=== PATIENT | male | born 1950 | race Caucasian/White ===

== ENCOUNTER → 2016-09-20 | Outpatient (CLI) | payer OTHER ==
[2016-09-20 08:28] LABS: CH 33.8; CHCM 34.7; HCT 45.2 % (39.0-53.0); HDW 2.93; HGB 15.3 gm/dL (13.0-17.5); MCHC 33.7 g/dL (31.0-37.0); Mean Platelet Volume 9.4; RBC 4.62 m/uL (4.30-5.90); RDW 12.8 % (11.5-15.5); WBC 7.9 k/uL (3.8-10.6)
[2016-09-20 08:50] LABS: ALT 51 U/L (21-72); AST 30 U/L (17-59); Alkaline Phosphatase 79 U/L (38-126); Anion Gap 9 mmol/L; Blood Urea Nitrogen 18 mg/dL (9-20); Calcium 9.4 mg/dL (8.4-10.2); Carbon Dioxide 30 mmol/L (22-30); Chloride 103 mmol/L (98-107); Cholesterol 152 mg/dL (<200); Glucose 102 mg/dL (74-99); HDL Cholesterol 52 mg/dL (40-60); Non-African American GFR(MDRD) >60 (>60 ml/min/1.73 sqM); Potassium 4.1 mmol/L (3.5-5.1); Sodium 142 mmol/L (137-145); Total Protein 7.3 g/dL (6.3-8.2); Triglycerides 85 mg/dL (<150)
[2016-09-20 09:20] LABS: Prostate Specific Antigen 2.11 ng/mL (0.00-4.00)
== END | disposition home or self-care (01) ==
LOC: LABWHC1 08:02
PROVIDERS: ATTEND Internal Medicine
DX: I10 Essential (primary) hypertension (principal); M19.90 Unspecified osteoarthritis, unspecified site
CPT/HCPCS: 36415; 80053; 80061; 84153; 84443; 85027

== ENCOUNTER → 2017-01-24 | Outpatient (CLI) | payer MEDICARE, OTHER ==
[2017-01-24 07:41] LABS: HDW 2.86; HGB 14.9 gm/dL (13.0-17.5); MCH 33.9 pg (25.0-35.0); MCHC 34.7 g/dL (31.0-37.0); MCV 97.5 fL (80.0-100.0); Mean Platelet Volume 9.2; RBC 4.41 m/uL (4.30-5.90); RDW 12.9 % (11.5-15.5); WBC 8.3 k/uL (3.8-10.6)
[2017-01-24 08:16] LABS: ALT 40 U/L (21-72); AST 27 U/L (17-59); Alkaline Phosphatase 79 U/L (38-126); Anion Gap 10 mmol/L; Blood Urea Nitrogen 20 mg/dL (9-20); Calcium 9.6 mg/dL (8.4-10.2); Carbon Dioxide 27 mmol/L (22-30); Chloride 108 mmol/L (98-107); Cholesterol 138 mg/dL (<200); Glucose 105 mg/dL (74-99); HDL Cholesterol 53 mg/dL (40-60); Non-African American GFR(MDRD) >60 (>60 ml/min/1.73 sqM); Potassium 4.2 mmol/L (3.5-5.1); Sodium 145 mmol/L (137-145); Total Bilirubin 0.8 mg/dL (0.2-1.3); Total Protein 7.2 g/dL (6.3-8.2); Triglycerides 61 mg/dL (<150)
== END | disposition home or self-care (01) ==
LOC: LABWHC1 07:16
PROVIDERS: ATTEND Internal Medicine
DX: D64.9 Anemia, unspecified (principal); K21.9 Gastro-esophageal reflux disease without esophagitis; E03.9 Hypothyroidism, unspecified
CPT/HCPCS: 36415; 80053; 80061; 84443; 85027

== ENCOUNTER → 2017-05-02 | Outpatient (CLI) | payer OTHER ==
[2017-05-02 07:57] LABS: CH 34.2; CHCM 34.9; HCT 44.9 % (39.0-53.0); HDW 2.82; HGB 14.9 gm/dL (13.0-17.5); MCH 32.8 pg (25.0-35.0); MCHC 33.2 g/dL (31.0-37.0); MCV 98.6 fL (80.0-100.0); Mean Platelet Volume 9.9; RBC 4.55 m/uL (4.30-5.90); RDW 13.4 % (11.5-15.5); WBC 7.3 k/uL (3.8-10.6)
[2017-05-02 09:27] LABS: ALT 39 U/L (21-72); AST 26 U/L (17-59); Alkaline Phosphatase 79 U/L (38-126); Anion Gap 9 mmol/L; Blood Urea Nitrogen 16 mg/dL (9-20); Calcium 9.2 mg/dL (8.4-10.2); Carbon Dioxide 29 mmol/L (22-30); Chloride 105 mmol/L (98-107); Cholesterol 130 mg/dL (<200); Glucose 92 mg/dL (74-99); HDL Cholesterol 44 mg/dL (40-60); Non-African American GFR(MDRD) >60 (>60 ml/min/1.73 sqM); Potassium 4.4 mmol/L (3.5-5.1); Sodium 143 mmol/L (137-145); Total Bilirubin 0.8 mg/dL (0.2-1.3); Total Protein 6.9 g/dL (6.3-8.2)
== END | disposition home or self-care (01) ==
LOC: LABWHC1 07:05
PROVIDERS: ATTEND Internal Medicine
DX: E78.5 Hyperlipidemia, unspecified (principal); I10 Essential (primary) hypertension; M19.90 Unspecified osteoarthritis, unspecified site
CPT/HCPCS: 36415; 80053; 80061; 84443; 85027

== ENCOUNTER 2017-05-29 13:35 | Inpatient (IN) | payer OTHER, MEDICARE ==
--- NOTE | 2017-05-29 13:59 | ED ---
General Adult HPI - General Chief complaint: Chest Pain Stated complaint: chest pain-sent by Time Seen by Provider: 05/29/17 13:35 Source: patient, RN notes reviewed Mode of arrival: ambulatory Limitations: no limitations - History of Present Illness Initial comments: This is a 67-year-old male who presents emergency Department complaining that at 6:00 this morning while driving to work he became sweaty and had some chest pressure and also felt short of breath while walking up the stairs to the break room at work which is abnormal. Patient states he's never had atrial fibrillation before he does state that he has had PVCs in the past. Patient denies any fever chills or cough recently. Patient states she did not feel an irregular heartbeat. Patient states that he lays in bed here he feels better. Patient states the pressure radiated to both shoulders as well. Patient denies any abdominal pain patient denies nausea vomiting or diarrhea. - Related Data Home Medications Medication Instructions Recorded Confirmed Aspirin 81 mg PO DAILY 05/29/17 05/29/17 Atenolol [Tenormin] 25 mg PO DAILY 05/29/17 05/29/17 Dutasteride [Avodart] 0.5 mg PO HS 05/29/17 05/29/17 Meloxicam [Mobic] 15 mg PO DAILY 05/29/17 05/29/17 Simvastatin [Zocor] 40 mg PO DAILY 05/29/17 05/29/17 Tamsulosin HCl [Flomax] 0.4 mg PO HS 05/29/17 05/29/17 Vits A,C,E/Lutein/Minerals 1 tab PO DAILY 05/29/17 05/29/17 [Ocuvite with Lutein Tablet] Allergies Allergy/AdvReac Type Severity Reaction Status Date / Time No Known Allergies Allergy Verified 05/29/17 14:08 Review of Systems ROS Statement: Those systems with pertinent positive or pertinent negative responses have been documented in the HPI. ROS Other: All systems not noted in ROS Statement are negative. Past Medical History Past Medical History: No Reported History Additional Past Medical History / Comment(s): macular degeneration History of Any Multi-Drug Resistant Organisms: None Reported Additional Past Surgical History / Comment(s): Eye surgery Past Psychological History: No Psychological Hx Reported Smoking Status: Never smoker Past Alcohol Use History: None Reported Past Drug Use History: None Reported General Exam - General Exam Comments Initial Comments: GENERAL: Patient is well-developed and well-nourished. Patient is nontoxic and well- hydrated and is in no acute distress. ENT: Neck is soft and supple. No significant lymphadenopathy is noted. Oropharynx is clear. Moist mucous membranes. Neck has full range of motion without eliciting any pain. EYES: The sclera were anicteric and conjunctiva were pink and moist. Extraocular movements were intact and pupils were equal round and reactive to light. Eyelids were unremarkable. PULMONARY: Unlabored respirations. Good breath sounds bilaterally. No audible rales rhonchi or wheezing was noted. CARDIOVASCULAR: Patient's heart rate is a regular ABDOMEN: Soft and nontender with normal bowel sounds. No palpable organomegaly was noted. There is no palpable pulsatile mass. SKIN: Skin is clear with no lesions or rashes and otherwise unremarkable. NEUROLOGIC: Patient is alert and oriented x3. Cranial nerves II through XII are grossly intact. Motor and sensory are also intact. Normal speech, volume and content. Symmetrical smile. MUSCULOSKELETAL: Normal extremities with adequate strength and full range of motion. LYMPHATICS: No significant lymphadenopathy is noted PSYCHIATRIC: Normal psychiatric evaluation. Normal interpersonal interactions appears functionally intact in deals appropriately with others. No signs of depression. No signs of anxiety. Limitations: no limitations Course Vital Signs 05/29/17 05/29/17 05/29/17 13:37 14:10 14:43 Temperature 97.8 F Pulse Rate 75 84 83 Respiratory 18 18 18 Rate Blood Pressure 126/80 125/83 122/80 O2 Sat by Pulse 99 96 99 Oximetry Medical Decision Making - Medical Decision Making EKG shows atrial fibrillation at 77 bpm QRS is 78 QT interval 382 QTC is 432. Patient's EKG shows Q waves in [address] segment elevation or depression is noted. Chest x-ray shows no acute normalities however there is a pleural based mass measuring 1.5 cm along the right lateral chest wall I started patient on heparin because of the significance of his symptoms. I spoke with Dr. Mims admitted the patient I wrote admitting orders. I continued heparin and patient aspirin on the floor. - Lab Data Result diagrams: 05/29/17 14:00 05/29/17 14:00 Lab Results 05/29/17 05/29/17 05/29/17 Range/Units 14:00 14:00 14:00 WBC 11.7 H (3.8-10.6) k/uL RBC 4.67 (4.30-5.90) m/uL Hgb 15.2 (13.0-17.5) gm/dL Hct 44.4 (39.0-53.0) % MCV 95.0 (80.0-100.0) fL MCH 32.6 (25.0-35.0) pg MCHC 34.3 (31.0-37.0) g/dL RDW 13.7 (11.5-15.5) % Plt Count 199 (150-450) k/uL Neutrophils % 64 % Lymphocytes % 21 % Monocytes % 8 % Eosinophils % 3 % Basophils % 1 % Neutrophils # 7.6 (1.3-7.7) k/uL Lymphocytes # 2.5 (1.0-4.8) k/uL Monocytes # 1.0 (0-1.0) k/uL Eosinophils # 0.4 (0-0.7) k/uL Basophils # 0.1 (0-0.2) k/uL PT (9.0-12.0) sec INR (<1.2) APTT (22.0-30.0) sec Sodium 140 (137-145) mmol/L Potassium 4.1 (3.5-5.1) mmol/L Chloride 106 (98-107) mmol/L Carbon Dioxide 25 (22-30) mmol/L Anion Gap 9 mmol/L BUN 19 (9-20) mg/dL Creatinine 0.81 (0.66-1.25) mg/dL Est GFR (MDRD) Af Amer >60 (>60 ml/min/1.73 sqM) Est GFR (MDRD) Non-Af >60 (>60 ml/min/1.73 sqM) Glucose 88 (74-99) mg/dL Calcium 9.3 (8.4-10.2) mg/dL Magnesium 2.1 (1.6-2.3) mg/dL Total Bilirubin 0.5 (0.2-1.3) mg/dL AST 27 (17-59) U/L ALT 45 (21-72) U/L Alkaline Phosphatase 99 (38-126) U/L Total Creatine Kinase 118 (55-170) U/L CK-MB (CK-2) 2.0 (0.0-2.4) ng/mL CK-MB (CK-2) Rel Index 1.7 Troponin I <0.012 (0.000-0.034) ng/mL Total Protein 7.2 (6.3-8.2) g/dL Albumin 4.4 (3.5-5.0) g/dL TSH 2.000 (0.465-4.680) mIU/L Free T4 0.95 (0.78-2.19) ng/dL 05/29/17 Range/Units 14:00 WBC (3.8-10.6) k/uL RBC (4.30-5.90) m/uL Hgb (13.0-17.5) gm/dL Hct (39.0-53.0) % MCV (80.0-100.0) fL MCH (25.0-35.0) pg MCHC (31.0-37.0) g/dL RDW (11.5-15.5) % Plt Count (150-450) k/uL Neutrophils % % Lymphocytes % % Monocytes % % Eosinophils % % Basophils % % Neutrophils # (1.3-7.7) k/uL Lymphocytes # (1.0-4.8) k/uL Monocytes # (0-1.0) k/uL Eosinophils # (0-0.7) k/uL Basophils # (0-0.2) k/uL PT 10.8 (9.0-12.0) sec INR 1.1 (<1.2) APTT 25.1 (22.0-30.0) sec Sodium (137-145) mmol/L Potassium (3.5-5.1) mmol/L Chloride (98-107) mmol/L Carbon Dioxide (22-30) mmol/L Anion Gap mmol/L BUN (9-20) mg/dL Creatinine (0.66-1.25) mg/dL Est GFR (MDRD) Af Amer (>60 ml/min/1.73 sqM) Est GFR (MDRD) Non-Af (>60 ml/min/1.73 sqM) Glucose (74-99) mg/dL Calcium (8.4-10.2) mg/dL Magnesium (1.6-2.3) mg/dL Total Bilirubin (0.2-1.3) mg/dL AST (17-59) U/L ALT (21-72) U/L Alkaline Phosphatase (38-126) U/L Total Creatine Kinase (55-170) U/L CK-MB (CK-2) (0.0-2.4) ng/mL CK-MB (CK-2) Rel Index Troponin I (0.000-0.034) ng/mL Total Protein (6.3-8.2) g/dL Albumin (3.5-5.0) g/dL TSH (0.465-4.680) mIU/L Free T4 (0.78-2.19) ng/dL Critical Care Time Critical Care Time: Yes Total Critical Care Time: 35 Disposition Clinical Impression: Unstable angina pectoris Disposition: ADMITTED IP TO THIS HOSP Referrals: Cecelia Evangelista MD [Primary Care Provider] - 1-2 days Time of Disposition: 15:12
[2017-05-29 14:25] LABS: INR 1.1 (<1.2)
--- NOTE | 2017-05-29 14:25 | XR ---
EXAMINATION TYPE: XR chest 2V DATE OF EXAM: 05/29/2017 COMPARISON: NONE TECHNIQUE: PA and lateral views submitted. HISTORY: Dysrhythmia and chest discomfort FINDINGS: The lungs are clear and there is no pneumothorax, pleural effusion, or focal pneumonia. Hypertrophi c and degenerative change of the spine. Arthropathy of the shoulders. Hyperinflation suggests COPD. T here is a pleural-based density along the right lateral chest wall measuring 1.7 cm. IMPRESSION: 1. No acute process. However, there is a pleural-based mass measuring 1.7 cm along the right lateral chest wall recommend follow-up CT scan.
[2017-05-29 14:26] LABS: Partial Thromboplastin Time 25.1 sec (22.0-30.0); Prothrombin Time 10.8 sec (9.0-12.0)
[2017-05-29 14:27] LABS: ALT 45 U/L (21-72); AST 27 U/L (17-59); Alkaline Phosphatase 99 U/L (38-126); Anion Gap 9 mmol/L; Blood Urea Nitrogen 19 mg/dL (9-20); Calcium 9.3 mg/dL (8.4-10.2); Carbon Dioxide 25 mmol/L (22-30); Chloride 106 mmol/L (98-107); Glucose 88 mg/dL (74-99); Magnesium 2.1 mg/dL (1.6-2.3); Non-African American GFR(MDRD) >60 (>60 ml/min/1.73 sqM); Potassium 4.1 mmol/L (3.5-5.1); Sodium 140 mmol/L (137-145); Total Bilirubin 0.5 mg/dL (0.2-1.3); Total Protein 7.2 g/dL (6.3-8.2)
[2017-05-29 14:36] LABS: Basophils # (A) 0.1 k/uL (0-0.2); Basophils % (A) 1 %; CH 34.5; CHCM 36.5; Eosinophils # (A) 0.4 k/uL (0-0.7); Eosinophils % (A) 3 %; HCT 44.4 % (39.0-53.0); HDW 2.83; HGB 15.2 gm/dL (13.0-17.5); Luc # (Auto) 0.28; Luc % (Auto) 2; Lymphocytes # (A) 2.5 k/uL (1.0-4.8); Lymphocytes % (A) 21 %; MCH 32.6 pg (25.0-35.0); MCHC 34.3 g/dL (31.0-37.0); Mean Platelet Volume 10.2; Monocytes % (A) 8 %; Neutrophils # (A) 7.6 k/uL (1.3-7.7); Neutrophils % (A) 64 %; RBC 4.67 m/uL (4.30-5.90); RDW 13.7 % (11.5-15.5); WBC 11.7 k/uL (3.8-10.6); WBC (Perox) 11.72
[2017-05-29 14:45] LABS: Creatine Kinase 118 U/L (55-170)
[2017-05-29 14:58] LABS: Troponin I <0.012 ng/mL (0.000-0.034)
[2017-05-29] MEDS ORDERED: NITROGLYCERIN SL TABS 0.4 MG TAB SUBLINGUAL PRN (15:14)
[2017-05-29] MEDS ORDERED: HEPARIN SODIUM,PORCINE 5,000 UNIT/ML 1 ML VIAL IV STA (16:06)
[2017-05-29] MEDS: HEPARIN SODIUM,PORCINE/D5W PMX 25,000 UNIT in DEXTROSE/WATER 1 500ML.BAG IV SCH (16:21)
[2017-05-29] MEDS: NITROGLYCERIN OINT 1 INCH/GM PACKET TOPICAL SCH ×2 (17:47→23:32)
[2017-05-29] MEDS: TAMSULOSIN 0.4 MG CAP.ER.24H PO SCH (20:09)
[2017-05-29] MEDS: FINASTERIDE 5 MG TAB PO SCH (20:09)
[2017-05-29 22:19] LABS: Creatine Kinase 91 U/L (55-170)
[2017-05-29 22:32] LABS: Creatine Kinase MB 1.6 ng/mL (0.0-2.4); Troponin I <0.012 ng/mL (0.000-0.034)
[2017-05-30 01:49] LABS: Creatine Kinase 89 U/L (55-170)
[2017-05-30 02:02] LABS: Creatine Kinase MB 1.5 ng/mL (0.0-2.4); Troponin I <0.012 ng/mL (0.000-0.034)
[2017-05-30 04:55] LABS: Cholesterol 121 mg/dL (<200); HDL Cholesterol 44 mg/dL (40-60)
[2017-05-30] MEDS: NITROGLYCERIN OINT 1 INCH/GM PACKET TOPICAL SCH ×4 (06:31→23:44)
[2017-05-30] MEDS ORDERED: ATENOLOL 25 MG TAB PO SCH (09:00)
[2017-05-30] MEDS: ATORVASTATIN 20 MG TAB PO SCH (09:39)
[2017-05-30] MEDS: MELOXICAM 7.5 MG TAB PO SCH (09:39)
[2017-05-30] MEDS: ASPIRIN 325 MG TAB PO SCH (09:40)
[2017-05-30] MEDS: ATENOLOL 25 MG TAB PO SCH (10:25)
--- NOTE | 2017-05-30 10:25 | P.CRDCN ---
History of Present Illness Consult date: 05/30/17 Chief complaint: Chest discomfort History of present illness: This is a pleasant 67-year-old gentleman with a past medical history significant for hypertension and dyslipidemia and mild obesity presented to the hospital because of chest discomfort. The patient was in his usual state of health where he was at work and as a matter of fact he was in the break room at work when he suddenly started experiencing chest discomfort, as a pressure across the chest, without any radiation to the arm or neck or shoulders and without associated symptoms. When the patient presented to the emergency room he was in atrial fibrillation with controlled heart rate. The EKG showed A. fib with diffuse nonspecific ST and T wave abnormalities. The patient was started on heparin. He was on atenolol which was continued. The cardiac enzymes were checked and came in to be unremarkable. The patient also underwent a chest x-ray which showed pleuritic mass. Past Medical History Past Medical History: Dementia, GERD/Reflux, Hyperlipidemia, Hypertension, Memory Impairment, Prostate Disorder Additional Past Medical History / Comment(s): macular degeneration RT EYE MACULAR HOLE-HAD SX), "PAST ULCER", ALZHIEMERS,PAST KIDNEY STONES History of Any Multi-Drug Resistant Organisms: None Reported Past Surgical History: Cholecystectomy, Hernia Repair Additional Past Surgical History / Comment(s): LT CATARACTS, RT EYE SX FOR MACULAR HOLE, MARLON FOOT SX 4-5 TH TOES BONE SX, LT KNEE SX ON CARTILAGE, LT SHOULDER BONE SOUR, LT ARM ORIF-PLATE, UNBILICAL HERNIA Past Anesthesia/Blood Transfusion Reactions: No Reported Reaction Smoking Status: Never smoker - Past Family History Mother Family Medical History: Cancer Additional Family Medical History / Comment(s): LEUKEMIA Father Additional Family Medical History / Comment(s): CEREBRAL ANEURYSM Medications and Allergies Home Medications Medication Instructions Recorded Confirmed Type Aspirin 81 mg PO DAILY 05/29/17 05/29/17 History Atenolol [Tenormin] 25 mg PO DAILY 05/29/17 05/29/17 History Dutasteride [Avodart] 0.5 mg PO HS 05/29/17 05/29/17 History Meloxicam [Mobic] 15 mg PO DAILY 05/29/17 05/29/17 History Simvastatin [Zocor] 40 mg PO DAILY 05/29/17 05/29/17 History Tamsulosin HCl [Flomax] 0.4 mg PO HS 05/29/17 05/29/17 History Vits A,C,E/Lutein/Minerals 1 tab PO DAILY 05/29/17 05/29/17 History [Ocuvite with Lutein Tablet] Allergies Allergy/AdvReac Type Severity Reaction Status Date / Time No Known Allergies Allergy Verified 05/29/17 14:08 Physical Exam Vitals: Vital Signs Temp Pulse Pulse Resp BP BP Pulse Ox 05/30/17 04:00 97.2 F L 86 18 118/67 99 05/30/17 00:00 98.1 F 74 18 116/71 97 05/29/17 19:45 97.8 F 74 16 118/75 96 05/29/17 16:00 97.4 F L 78 16 120/76 96 05/29/17 15:36 98.5 F 64 18 110/64 99 05/29/17 14:43 83 18 122/80 99 05/29/17 14:10 84 18 125/83 96 05/29/17 13:37 97.8 F 75 18 126/80 99 Intake and Output 05/29/17 05/30/17 05/30/17 22:59 06:59 14:59 Intake Total 305.396 206 Output Total 150 750 Balance 155.396 -544 Intake: IV 206 Heparin Sodium,Porcine/ 206 D5w Pmx 25,000 unit In Dextrose/Water 1 500ml. bag @ 10.68 UNITS/KG/HR 20.01 mls/hr IV .Q24H [facility] Rx#:[id number] Intake, IV Titration 125.396 Amount Heparin Sodium,Porcine/ 125.396 D5w Pmx 25,000 unit In Dextrose/Water 1 500ml. bag @ 10.68 UNITS/KG/HR 20.01 mls/hr IV .Q24H [facility] Rx#:[id number] Oral 180 Output: Urine 150 750 Other: Voiding Method Toilet # Voids 4 Weight 93.7 kg 94 kg - Constitutional General appearance: no acute distress - Respiratory Respiratory: bilateral: CTA - Cardiovascular Rhythm: irregularly irregular Heart sounds: normal: S1, S2 Results 05/29/17 14:00 05/29/17 14:00 Cardiac Enzymes 05/29/17 05/29/17 05/29/17 Range/Units 14:00 14:00 21:45 AST 27 (17-59) U/L CK-MB (CK-2) 2.0 1.6 (0.0-2.4) ng/mL Troponin I <0.012 <0.012 (0.000-0.034) ng/mL 05/30/17 Range/Units 01:13 AST (17-59) U/L CK-MB (CK-2) 1.5 (0.0-2.4) ng/mL Troponin I <0.012 (0.000-0.034) ng/mL Coagulation 05/29/17 05/29/17 05/30/17 Range/Units 14:00 21:45 04:03 PT 10.8 (9.0-12.0) sec APTT 25.1 43.5 H 49.6 H (22.0-30.0) sec Lipids 05/30/17 Range/Units 04:01 Triglycerides 82 (<150) mg/dL Cholesterol 121 (<200) mg/dL HDL Cholesterol 44 (40-60) mg/dL CBC 05/29/17 Range/Units 14:00 WBC 11.7 H (3.8-10.6) k/uL RBC 4.67 (4.30-5.90) m/uL Hgb 15.2 (13.0-17.5) gm/dL Hct 44.4 (39.0-53.0) % Plt Count 199 (150-450) k/uL Comprehensive Metabolic Panel 05/29/17 Range/Units 14:00 Sodium 140 (137-145) mmol/L Potassium 4.1 (3.5-5.1) mmol/L Chloride 106 (98-107) mmol/L Carbon Dioxide 25 (22-30) mmol/L BUN 19 (9-20) mg/dL Creatinine 0.81 (0.66-1.25) mg/dL Glucose 88 (74-99) mg/dL Calcium 9.3 (8.4-10.2) mg/dL AST 27 (17-59) U/L ALT 45 (21-72) U/L Alkaline Phosphatase 99 (38-126) U/L Total Protein 7.2 (6.3-8.2) g/dL Albumin 4.4 (3.5-5.0) g/dL Current Medications Generic Name Dose Route Start Last Admin Trade Name Freq PRN Reason Stop Dose Admin Aspirin 325 mg 05/30/17 09:00 05/30/17 09:40 Aspirin PO 325 mg DAILY [facility] Administration Atenolol 25 mg 05/30/17 10:00 Tenormin PO DAILY [facility] Atorvastatin Calcium 20 mg 05/30/17 09:00 05/30/17 09:39 Lipitor PO 20 mg DAILY [facility] Administration Finasteride 5 mg 05/29/17 21:00 05/29/17 20:09 Proscar PO 5 mg HS [facility] Administration Heparin Sodium/Dextrose 25,000 500 mls @ 20.01 mls/hr 05/29/17 16:15 22:37 unit/ IV Solution IV 12.68 units/kg/hr .Q24H [facility] 23.76 mls/hr Protocol Titration 10.68 UNITS/KG/HR Meloxicam 15 mg 05/30/17 09:00 05/30/17 09:39 Mobic PO 15 mg DAILY [facility] Administration Multivitamins/Minerals 1 each 05/30/17 12:00 Ivite PO 1200 [facility] Nitroglycerin 1 inch 05/29/17 18:00 05/30/17 06:31 Nitro-Bid Oint TOPICAL Not Given Q6HR [facility] Nitroglycerin 0.4 mg 05/29/17 15:14 Nitrostat SUBLINGUAL Q5M PRN Chest Pain Tamsulosin HCl 0.4 mg 05/29/17 21:00 05/29/17 20:09 Flomax PO 0.4 mg HS [facility] Administration Intake and Output 05/29/17 05/30/17 05/30/17 22:59 06:59 14:59 Intake Total 305.396 206 Output Total 150 750 Balance 155.396 -544 Intake: IV 206 Heparin Sodium,Porcine/ 206 D5w Pmx 25,000 unit In Dextrose/Water 1 500ml. bag @ 10.68 UNITS/KG/HR 20.01 mls/hr IV .Q24H [facility] Rx#:[id number] Intake, IV Titration 125.396 Amount Heparin Sodium,Porcine/ 125.396 D5w Pmx 25,000 unit In Dextrose/Water 1 500ml. bag @ 10.68 UNITS/KG/HR 20.01 mls/hr IV .Q24H [facility] Rx#:[id number] Oral 180 Output: Urine 150 750 Other: Voiding Method Toilet # Voids 4 Weight 93.7 kg 94 kg 05/29/17 14:00 05/29/17 14:00 Assessment and Plan Plan: This is a pleasant 67-year-old gentleman with hypertension and dyslipidemia who presented with a chest discomfort. The patient was found to be in A. fib which seems to be nearly diagnosed as atrial fibrillation. Currently the patient is in A. fib with controlled heart rate. He is on atenolol and he is on heparin IV. The chest x-ray showed possible pleuritic/lung mass. I recommended continue the atenolol at this point. The heart rate has been controlled. Regarding anticoagulation, I recommended continue the heparin IV until we make sure that the patient seen by the pulmonary service and we know that he doesn't need to have any biopsy. At that point was started the patient on oral anticoagulation. Meanwhile I will obtain an echocardiogram was Doppler and also I think the patient needs to have a stress test to rule out any severe underlying CAD.
[2017-05-30] MEDS ORDERED: RX INFO: IV CONTRAST WAS GIVEN 1 EACH MISC MISCELLANE PRN ×2 (10:46→12:51)
[2017-05-30] MEDS ORDERED: Potassium Replacement Protocol 1 EACH MISC MISCELLANE PRN (11:36)
[2017-05-30] MEDS ORDERED: Magnesium Replacement Protocol 1 EACH MISC MISCELLANE PRN (11:36)
--- NOTE | 2017-05-30 11:40 | P.HPIM ---
History of Present Illness H&P Date: 05/30/17 Chief Complaint: Actinic of the chest This is a 67-year-old gentleman with past medical history noted below who presented to the hospital with chest discomfort and tightening. Patient said that his symptoms started when he was at work with what he describes as heart fluttering and chest discomfort. He denies jeison chest pain. No radiation reported. No dizziness or lightheadedness. No diaphoresis. Patient said that he has a history of PVCs in the past but was never diagnosed with A. fib. Patient was evaluated in the emergency room and was noted to have evidence of atrial fibrillation on 12-lead EKG. Heart rate was controlled. Chest x-ray showed findings concerning for pleural-based density measuring approximately 1.7 centimeters concerning for possible malignancy. Patient is a nonsmoker. He is not aware of any abnormal findings on prior x-rays. Review of Systems Review of system: 14 points review of systems were obtained and were negative except to what were mentioned in the HPI. Past Medical History Past Medical History: Dementia, GERD/Reflux, Hyperlipidemia, Hypertension, Memory Impairment, Prostate Disorder Additional Past Medical History / Comment(s): macular degeneration RT EYE MACULAR HOLE-HAD SX), "PAST ULCER", ALZHIEMERS,PAST KIDNEY STONES History of Any Multi-Drug Resistant Organisms: None Reported Past Surgical History: Cholecystectomy, Hernia Repair Additional Past Surgical History / Comment(s): LT CATARACTS, RT EYE SX FOR MACULAR HOLE, MARLON FOOT SX 4-5 TH TOES BONE SX, LT KNEE SX ON CARTILAGE, LT SHOULDER BONE SOUR, LT ARM ORIF-PLATE, UNBILICAL HERNIA Past Anesthesia/Blood Transfusion Reactions: No Reported Reaction Smoking Status: Never smoker - Past Family History Mother Family Medical History: Cancer Additional Family Medical History / Comment(s): LEUKEMIA Father Additional Family Medical History / Comment(s): CEREBRAL ANEURYSM Medications and Allergies Home Medications Medication Instructions Recorded Confirmed Type Aspirin 81 mg PO DAILY 05/29/17 05/29/17 History Atenolol [Tenormin] 25 mg PO DAILY 05/29/17 05/29/17 History Dutasteride [Avodart] 0.5 mg PO HS 05/29/17 05/29/17 History Meloxicam [Mobic] 15 mg PO DAILY 05/29/17 05/29/17 History Simvastatin [Zocor] 40 mg PO DAILY 05/29/17 05/29/17 History Tamsulosin HCl [Flomax] 0.4 mg PO HS 05/29/17 05/29/17 History Vits A,C,E/Lutein/Minerals 1 tab PO DAILY 05/29/17 05/29/17 History [Ocuvite with Lutein Tablet] Allergies Allergy/AdvReac Type Severity Reaction Status Date / Time No Known Allergies Allergy Verified 05/29/17 14:08 Physical Exam Vitals: Vital Signs Temp Pulse Pulse Resp BP BP Pulse Ox 05/30/17 08:00 97.4 F L 92 17 122/83 98 05/30/17 04:00 97.2 F L 86 18 118/67 99 05/30/17 00:00 98.1 F 74 18 116/71 97 05/29/17 19:45 97.8 F 74 16 118/75 96 05/29/17 16:00 97.4 F L 78 16 120/76 96 05/29/17 15:36 98.5 F 64 18 110/64 99 05/29/17 14:43 83 18 122/80 99 05/29/17 14:10 84 18 125/83 96 05/29/17 13:37 97.8 F 75 18 126/80 99 Intake and Output 05/29/17 05/30/17 05/30/17 22:59 06:59 14:59 Intake Total 305.396 206 360 Output Total 150 750 300 Balance 155.396 -544 60 Intake: IV 206 Heparin Sodium,Porcine/ 206 D5w Pmx 25,000 unit In Dextrose/Water 1 500ml. bag @ 10.68 UNITS/KG/HR 20.01 mls/hr IV .Q24H [facility] Rx#:[id number] Intake, IV Titration 125.396 Amount Heparin Sodium,Porcine/ 125.396 D5w Pmx 25,000 unit In Dextrose/Water 1 500ml. bag @ 10.68 UNITS/KG/HR 20.01 mls/hr IV .Q24H [facility] Rx#:[id number] Oral 180 360 Output: Urine 150 750 300 Other: Voiding Method Toilet # Voids 4 1 Weight 93.7 kg 94 kg General: The patient is awake and alert, in no distress Eye: there is normal conjunctiva bilaterally. Neck: The neck is supple, there is no JVD. Cardiovascular: Normal S1-S2, no S3-S4, no murmurs. Respiratory: Lungs clear to auscultation bilaterally Gastrointestinal: Abdomen is soft, nontender Musculoskeletal: There is no pedal edema. Neurological:. Speech is normal. Skin: Skin is warm and dry Results CBC & Chem 7: 05/29/17 14:00 05/29/17 14:00 Labs: Abnormal Lab Results - Last 24 Hours (Table) 05/29/17 05/29/17 05/30/17 Range/Units 14:00 21:45 04:03 WBC 11.7 H (3.8-10.6) k/uL APTT 43.5 H 49.6 H (22.0-30.0) sec Assessment and Plan Plan: 1. New onset atrial fibrillation: Heart rate well controlled. Patient was seen and evaluated by cardiology. Thyroid function test checked and normal. Currently on IV heparin for anticoagulation. Echocardiogram ordered. 2. Right pleural-based density measuring approximately 1.7 cm: I would obtain computed tomography scan of the chest for further evaluation. Pulmonology consulted. 3. Essential hypertension: Blood pressure well-controlled 4. Mixed hyperlipidemia: On Lipitor Today, I reviewed his medication list and lab work results. Continue telemetry monitoring. Appreciate [employer] consultant's recommendations. Repeat lab work in the morning.
[2017-05-30] MEDS: HEPARIN SODIUM,PORCINE/D5W PMX 25,000 UNIT in DEXTROSE/WATER 1 500ML.BAG IV SCH (12:01)
[2017-05-30] MEDS: VIT A,C & E-LUTEIN-MINERALS 1 EACH TAB PO SCH (12:06)
--- NOTE | 2017-05-30 12:51 | P.CNPUL ---
History of Present Illness Consult date: 05/30/17 Reason for consult: abnormal CXR/CT Chief complaint: Possible pleural-based mass. History of present illness: Consult dated 05/30/2017 67-year-old male with a history of macular degeneration hypertension hyperlipidemia and BPH who apparently presented to the emergency room with complaints of chest pressure feeling shortness of breath. He was found in the emergency room to have atrial fibrillation with RVR was admitted for same. The patient's never had this before. He had a chest x-ray apparently showed an incidental finding of a possible pleural-based mass on the right side. Really hard to see on chest x-ray. A CAT scan was recommended. I asked the patient about whether or not he had any trauma to the chest. He did not. No injury. No car accident. No previous issues with the chest cavity or was never told that he had a problem there before. Not having any pain there. No shortness of breath now. Feeling much better. Lifelong nonsmoker. Review of Systems A 12 point review of system was was positive for chest pressure shortness of breath and diaphoresis secondary to his atrial fibrillation/RVR. That's under been much better controlled at the current time. Not having any right-sided chest discomfort with the pleural-based mass is located. Past Medical History Past Medical History: Dementia, GERD/Reflux, Hyperlipidemia, Hypertension, Memory Impairment, Prostate Disorder Additional Past Medical History / Comment(s): macular degeneration RT EYE MACULAR HOLE-HAD SX), "PAST ULCER", ALZHIEMERS,PAST KIDNEY STONES History of Any Multi-Drug Resistant Organisms: None Reported Past Surgical History: Cholecystectomy, Hernia Repair Additional Past Surgical History / Comment(s): LT CATARACTS, RT EYE SX FOR MACULAR HOLE, MARLON FOOT SX 4-5 TH TOES BONE SX, LT KNEE SX ON CARTILAGE, LT SHOULDER BONE SOUR, LT ARM ORIF-PLATE, UNBILICAL HERNIA Past Anesthesia/Blood Transfusion Reactions: No Reported Reaction Smoking Status: Never smoker - Past Family History Mother Family Medical History: Cancer Additional Family Medical History / Comment(s): LEUKEMIA Father Additional Family Medical History / Comment(s): CEREBRAL ANEURYSM Medications and Allergies Home Medications Medication Instructions Recorded Confirmed Type Aspirin 81 mg PO DAILY 05/29/17 05/29/17 History Atenolol [Tenormin] 25 mg PO DAILY 05/29/17 05/29/17 History Dutasteride [Avodart] 0.5 mg PO HS 05/29/17 05/29/17 History Meloxicam [Mobic] 15 mg PO DAILY 05/29/17 05/29/17 History Simvastatin [Zocor] 40 mg PO DAILY 05/29/17 05/29/17 History Tamsulosin HCl [Flomax] 0.4 mg PO HS 05/29/17 05/29/17 History Vits A,C,E/Lutein/Minerals 1 tab PO DAILY 05/29/17 05/29/17 History [Ocuvite with Lutein Tablet] Allergies Allergy/AdvReac Type Severity Reaction Status Date / Time No Known Allergies Allergy Verified 05/29/17 14:08 Physical Exam Osteopathic Statement: *. No significant issues noted on an osteopathic structural exam other than those noted in the History and Physical/Consult. Vitals: Vital Signs Temp Pulse Pulse Resp BP BP Pulse Ox 05/30/17 08:00 97.4 F L 92 17 122/83 98 05/30/17 04:00 97.2 F L 86 18 118/67 99 05/30/17 00:00 98.1 F 74 18 116/71 97 05/29/17 19:45 97.8 F 74 16 118/75 96 05/29/17 16:00 97.4 F L 78 16 120/76 96 05/29/17 15:36 98.5 F 64 18 110/64 99 05/29/17 14:43 83 18 122/80 99 05/29/17 14:10 84 18 125/83 96 05/29/17 13:37 97.8 F 75 18 126/80 99 Intake and Output 05/29/17 05/30/17 05/30/17 22:59 06:59 14:59 Intake Total 305.396 206 678.384 Output Total 150 750 300 Balance 155.396 -544 378.384 Intake: IV 206 Heparin Sodium,Porcine/ 206 D5w Pmx 25,000 unit In Dextrose/Water 1 500ml. bag @ 10.68 UNITS/KG/HR 20.01 mls/hr IV .Q24H [facility] Rx#:[id number] Intake, IV Titration 125.396 318.384 Amount Heparin Sodium,Porcine/ 125.396 318.384 D5w Pmx 25,000 unit In Dextrose/Water 1 500ml. bag @ 10.68 UNITS/KG/HR 20.01 mls/hr IV .Q24H [facility] Rx#:[id number] Oral 180 360 Output: Urine 150 750 300 Other: Voiding Method Toilet # Voids 4 1 Weight 93.7 kg 94 kg No acute distress, oriented 3. HEENT examination is grossly unremarkable. Mucous membranes are moist. No oral lesions. Neck supple. Full range of motion. No adenopathy. Cardiovascular examination reveals regular rhythm rate. S1-S2 normal. No S3- S4 or murmur. Lungs reveal clear breath sounds. No wheezes or rhonchi. Abdomen soft bowel sounds are heard. Extremities are intact. No cyanosis clubbing or edema. Skin without rash. Neurologic examination is nonfocal. Results - Laboratory Findings CBC and BMP: 05/29/17 14:00 05/29/17 14:00 PT/INR, D-dimer PT 10.8 sec (9.0-12.0) 05/29/17 14:00 INR 1.1 (<1.2) 05/29/17 14:00 Abnormal lab findings: Abnormal Labs 05/29/17 05/29/17 05/30/17 14:00 21:45 04:03 WBC 11.7 H APTT 43.5 H 49.6 H - Diagnostic Findings Chest x-ray: image reviewed (Chest x-ray labs and medications are all reviewed.) Assessment and Plan (1) Atrial fibrillation Status: Acute (2) Abnormal chest x-ray Status: Acute (3) Pleural mass Status: Acute (4) Hyperlipidemia Status: Acute (5) BPH (benign prostatic hyperplasia) Status: Acute (6) Arthritis Status: Acute (7) Hypertension Status: Acute Plan: Plan dated 05/30/2017 I will go ahead and order a CAT scan of the chest. Additional recommendations suggestions are forthcoming. I did give the patient my card. Time with Patient: Greater than 30
[2017-05-30] MEDS: ACETAMINOPHEN TAB 325 MG TAB PO PRN ×2 (15:20→23:55)
--- NOTE | 2017-05-30 15:52 | CT ---
EXAMINATION TYPE: CT chest w con DATE OF EXAM: 05/30/2017 COMPARISON: NONE HISTORY: Chest mass CT DLP: 448.5 mGycm. Automated Exposure Control for Dose Reduction was Utilized. TECHNIQUE: CT scan of the thorax is performed following with IV Contrast, patient injected with 100 mL of Omnipaque 300. FINDINGS: LUNGS: The previously seen pleural-based density on the chest radiograph of 05/29/2017 represents foca l pleural thickening along the right interlobar fissure, likely representing benign pleural reaction. No associated calcifications or mass is appreciated. No underlying rib lesion is seen. The lungs are grossly clear, there is no concerning parenchymal mass or nodule identified. There is no pleural e ffusion or pneumothorax seen. The tracheobronchial tree is patent. MEDIASTINUM: There are no greater than 1 cm hilar or mediastinal lymph nodes. No pericardial effusi on is seen. Ascending aorta is within normal limits of size measuring 3.6 cm. OTHER: Mild degenerative changes of the thoracic spine are present. IMPRESSION: Benign-appearing focal pleural thickening corresponding to the radiographic finding on the exam of . No associated calcifications, mass, or underlying rib lesion.
[2017-05-30] MEDS: TAMSULOSIN 0.4 MG CAP.ER.24H PO SCH (19:36)
[2017-05-30] MEDS: FINASTERIDE 5 MG TAB PO SCH (19:36)
[2017-05-31 06:13] LABS: Basophils # (A) 0.1 k/uL (0-0.2); Basophils % (A) 1 %; CH 34.2; CHCM 35.7; Eosinophils # (A) 0.4 k/uL (0-0.7); Eosinophils % (A) 4 %; HCT 42.1 % (39.0-53.0); HDW 2.84; HGB 14.3 gm/dL (13.0-17.5); Luc # (Auto) 0.24; Luc % (Auto) 2; Lymphocytes # (A) 2.7 k/uL (1.0-4.8); Lymphocytes % (A) 25 %; MCH 32.7 pg (25.0-35.0); MCHC 33.9 g/dL (31.0-37.0); MCV 96.4 fL (80.0-100.0); Mean Platelet Volume 9.6; Monocytes # (A) 0.6 k/uL (0-1.0); Monocytes % (A) 6 %; Neutrophils # (A) 6.9 k/uL (1.3-7.7); Neutrophils % (A) 63 %; RBC 4.36 m/uL (4.30-5.90); RDW 13.6 % (11.5-15.5); WBC (Perox) 10.71
[2017-05-31] MEDS: NITROGLYCERIN OINT 1 INCH/GM PACKET TOPICAL SCH ×3 (06:15→22:06)
[2017-05-31] MEDS: ACETAMINOPHEN TAB 325 MG TAB PO PRN ×2 (06:19→15:17)
[2017-05-31 06:22] LABS: Anion Gap 8 mmol/L; Blood Urea Nitrogen 15 mg/dL (9-20); Calcium 8.9 mg/dL (8.4-10.2); Carbon Dioxide 25 mmol/L (22-30); Chloride 106 mmol/L (98-107); Glucose 101 mg/dL (74-99); Non-African American GFR(MDRD) >60 (>60 ml/min/1.73 sqM); Potassium 4.1 mmol/L (3.5-5.1); Sodium 139 mmol/L (137-145)
[2017-05-31] MEDS: ASPIRIN 325 MG TAB PO SCH (08:07)
[2017-05-31] MEDS: ATORVASTATIN 20 MG TAB PO SCH (08:07)
[2017-05-31] MEDS: ATENOLOL 25 MG TAB PO SCH (08:07)
[2017-05-31] MEDS: MELOXICAM 7.5 MG TAB PO SCH (08:08)
--- NOTE | 2017-05-31 09:02 | ECHOF ---
Referral Reason:A.fib MEASUREMENTS -------- HEIGHT: 180.3 cm WEIGHT: 93.9 kg BP: 122/83 RVIDd: 2.2 cm (< 3.3) IVSd: 1.1 cm (0.6 - 1.1) LVIDd: 4.3 cm (3.9 - 5.3) LVPWd: 1.2 cm (0.6 - 1.1) IVSs: 1.8 cm LVIDs: 2.9 cm LVPWs: 1.5 cm LAESV Index (A-L): 31.10 ml/m Ao Diam: 3.4 cm (2.0 - 3.7) AV Cusp: 1.9 cm (1.5 - 2.6) LA Diam: 3.9 cm (2.7 - 3.8) MV EXCURSION: 22.907 mm (> 18.000) MV EF SLOPE: 73 mm/s (70 - 150) EPSS: 0.4 cm MV E Iron: 1.23 m/s MV DecT: 166 ms MV A Iron: 0.90 m/s MV E/A Ratio: 1.36 AR PHT: 500 ms RAP: 5.00 mmHg RVSP: 33.83 mmHg FINDINGS -------- Atrial fibrillation. This was a technically adequate study. The left ventricular size is normal. There is mild concentric left ventricular hypertrophy. Overall left ventricular systolic function is normal with, an EF between 55 - 60 %. The right ventricle is normal in size and function. LA is midly dilated 29-33ml/m2. The right atrium is normal in size. Aortic valve is trileaflet and is mildly thickened. There is [id number]-ic-hcbviacb aortic regurgitation. The aortic pressure half-time by doppler is 500ms. There is no evidence of aortic stenosis. The mitral valve leaflets are mildly thickened. There is trace to mild mitral regurgitation. Trace tricuspid regurgitation present. Right ventricular systolic pressure is normal at < 35 mmHg. There is borderline pulmonary artery hypertension. The pulmonic valve was not well visualized. The aortic root size is normal. IVC Not well visulized. The pericardium is normal. There is no pericardial effusion. CONCLUSIONS -------- 1. Atrial fibrillation. 2. The mitral valve leaflets are mildly thickened. 3. There is trace to mild mitral regurgitation. 4. Trace tricuspid regurgitation present. 5. Right ventricular systolic pressure is normal at < 35 mmHg. 6. There is borderline pulmonary artery hypertension. 7. The pulmonic valve was not well visualized. 8. The aortic root size is normal. 9. IVC Not well visulized. 10. This was a technically adequate study. 11. The left ventricular size is normal. 12. There is mild concentric left ventricular hypertrophy. 13. Overall left ventricular systolic function is normal with, an EF between 55 - 60 %. 14. LA is midly dilated 29-33ml/m2. 15. Aortic valve is trileaflet and is mildly thickened. 16. There is [id number]-daatcjoi aortic regurgitation. 17. The aortic pressure half-time by doppler is 500ms. STRATEGIC SOURCING MANAGER: Oliver Vance RDCS
--- NOTE | 2017-05-31 11:16 | P.PN ---
Subjective Patient is doing well today. He denies any chest pain. Heart rate well controlled. Objective - Vital Signs Vital signs: Vital Signs Temp 97.1 F L 05/31/17 07:53 Pulse 102 H 05/31/17 07:53 Resp 17 05/31/17 07:53 BP 120/73 05/31/17 07:53 Pulse Ox 98 05/31/17 07:53 Intake & Output 05/30/17 05/31/17 05/31/17 18:59 06:59 18:59 Intake Total 1038.384 240 Output Total 900 300 200 Balance 138.384 -300 40 Intake: Intake, IV Titration 318.384 Amount Heparin Sodium,Porcine/ 318.384 D5w Pmx 25,000 unit In Dextrose/Water 1 500ml. bag @ 10.68 UNITS/KG/HR 20.01 mls/hr IV .Q24H [facility] Rx#:[id number] Oral 720 240 Output: Urine 900 300 200 Other: Voiding Method Toilet # Voids 1 1 1 - Exam General: The patient is awake and alert, in no distress Eye: there is normal conjunctiva bilaterally. Neck: The neck is supple, there is no JVD. Cardiovascular: Normal S1-S2, no S3-S4, no murmurs. Respiratory: Lungs clear to auscultation bilaterally Gastrointestinal: Abdomen is soft, nontender Musculoskeletal: There is no pedal edema. Neurological:. Speech is normal. Skin: Skin is warm and dry - Labs CBC & Chem 7: 05/31/17 05:25 05/31/17 05:25 Labs: Abnormal Lab Results - Last 24 Hours (Table) 05/31/17 05/31/17 05/31/17 Range/Units 05:25 05:25 07:22 WBC 11.0 H (3.8-10.6) k/uL APTT 45.3 H (22.0-30.0) sec Glucose 101 H (74-99) mg/dL Assessment and Plan Plan: 1. New onset atrial fibrillation: Heart rate well controlled. Patient was seen and evaluated by cardiology. Thyroid function test checked and normal. Currently on IV heparin for anticoagulation. Echocardiogram showed preserved ejection fraction with no significant valvular abnormalities 2. Right pleural-based density measuring approximately 1.7 cm noted on chest x- ray. Computed tomography scan of the chest ordered for further evaluation showing benign-appearing focal pleural thickening with no associated calcification, mass, or underlying liver lesion. Patient was seen and evaluated by pulmonology. No further evaluation is needed at this time. 3. Essential hypertension: Blood pressure well-controlled 4. Mixed hyperlipidemia: On Lipitor Today, I reviewed his medication list and lab work results. Continue telemetry monitoring. Appreciate professional employer consultant's recommendations. awaiting final recommendation from cardiology for possible stress test tomorrow. Repeat lab work in the morning. Plan to switch anticoagulation to oral tomorrow possibly one of the newer anticoagulant.
[2017-05-31] MEDS: HEPARIN SODIUM,PORCINE/D5W PMX 25,000 UNIT in DEXTROSE/WATER 1 500ML.BAG IV SCH (11:29)
[2017-05-31] MEDS: VIT A,C & E-LUTEIN-MINERALS 1 EACH TAB PO SCH (11:32)
[2017-05-31] MEDS ORDERED: HEPARIN SODIUM,PORCINE 5,000 UNIT/ML 1 ML VIAL IV STA (11:35)
[2017-05-31] MEDS ORDERED: HEPARIN SODIUM,PORCINE 5,000 UNIT/ML 1 ML VIAL IV PRN (11:38)
--- NOTE | 2017-05-31 12:38 | P.PN ---
Progress Note - Text This is a pleasant 67-year-old gentleman with a past medical history significant for hypertension and dyslipidemia and mild obesity presented to the hospital because of chest discomfort. The patient was in his usual state of health where he was at work and as a matter of fact he was in the break room at work when he suddenly started experiencing chest discomfort, as a pressure across the chest, without any radiation to the arm or neck or shoulders and without associated symptoms. When the patient presented to the emergency room he was in atrial fibrillation with controlled heart rate. The EKG showed A. fib with diffuse nonspecific ST and T wave abnormalities. The patient was started on heparin. He was on atenolol which was continued. The cardiac enzymes were checked and came in to be unremarkable. The patient continues to be in A. fib with controlled heart rates. Continues on anticoagulation was heparin. Echocardiogram showed normal LV function. 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 I am going to proceed with a stress test to rule out any severe underlying CAD.
[2017-05-31] MEDS: FINASTERIDE 5 MG TAB PO SCH (22:05)
[2017-05-31] MEDS: TAMSULOSIN 0.4 MG CAP.ER.24H PO SCH (22:05)
[2017-06-01] MEDS: NITROGLYCERIN OINT 1 INCH/GM PACKET TOPICAL SCH ×5 (00:15→23:45)
[2017-06-01] MEDS: HEPARIN SODIUM,PORCINE/D5W PMX 25,000 UNIT in DEXTROSE/WATER 1 500ML.BAG IV SCH (01:32)
[2017-06-01] MEDS: ACETAMINOPHEN TAB 325 MG TAB PO PRN (05:19)
[2017-06-01] MEDS ORDERED: REGADENOSON 0.4 MG/5 ML SYRINGE IV ONE (06:00)
[2017-06-01] MEDS ORDERED: AMINOPHYLLINE 500 MG/20 ML VIAL IV PRN (06:00)
[2017-06-01 06:14] LABS: Basophils # (A) 0.1 k/uL (0-0.2); Basophils % (A) 1 %; CH 33.4; CHCM 35.2; Eosinophils # (A) 0.4 k/uL (0-0.7); Eosinophils % (A) 5 %; HCT 40.9 % (39.0-53.0); HDW 2.86; HGB 14.4 gm/dL (13.0-17.5); Luc # (Auto) 0.18; Luc % (Auto) 2; Lymphocytes # (A) 2.2 k/uL (1.0-4.8); Lymphocytes % (A) 25 %; MCH 33.5 pg (25.0-35.0); MCHC 35.1 g/dL (31.0-37.0); MCV 95.3 fL (80.0-100.0); Monocytes # (A) 0.6 k/uL (0-1.0); Monocytes % (A) 7 %; Neutrophils # (A) 5.4 k/uL (1.3-7.7); Neutrophils % (A) 61 %; RBC 4.29 m/uL (4.30-5.90); RDW 12.7 % (11.5-15.5); WBC 8.9 k/uL (3.8-10.6); WBC (Perox) 8.91
[2017-06-01 06:31] LABS: Anion Gap 8 mmol/L; Blood Urea Nitrogen 11 mg/dL (9-20); Calcium 8.9 mg/dL (8.4-10.2); Carbon Dioxide 27 mmol/L (22-30); Chloride 106 mmol/L (98-107); Glucose 94 mg/dL (74-99); Non-African American GFR(MDRD) >60 (>60 ml/min/1.73 sqM); Sodium 141 mmol/L (137-145)
--- NOTE | 2017-06-01 09:26 | P.PN ---
Subjective This is a 67-year-old male who presented with chest pain was found to have a new onset of atrial fibrillation rate controlled. Patient has been followed by cardiology. He is currently on IV heparin. He is scheduled for stress test today. Patient has had no further episodes of chest pain. He denies any shortness of breath, nausea or vomiting, bowel movement changes or urinary symptoms. Objective - Vital Signs Vital signs: Vital Signs Temp 97 F L 06/01/17 08:00 Pulse 94 06/01/17 08:00 Resp 16 06/01/17 08:00 BP 130/63 06/01/17 08:00 Pulse Ox 96 06/01/17 08:00 Intake & Output 05/31/17 06/01/17 06/01/17 18:59 06:59 18:59 Intake Total 1168.8 630.943 Output Total 200 500 Balance 968.8 130.943 Weight 94.9 kg Intake: IV 188.8 100 0.9 100 Heparin Sodium,Porcine/ 188.8 D5w Pmx 25,000 unit In Dextrose/Water 1 500ml. bag @ 10.68 UNITS/KG/HR 20.01 mls/hr IV .Q24H [facility] Rx#:[id number] Intake, IV Titration 500 530.943 Amount Heparin Sodium,Porcine/ 500 530.943 D5w Pmx 25,000 unit In Dextrose/Water 1 500ml. bag @ 10.68 UNITS/KG/HR 20.01 mls/hr IV .Q24H [facility] Rx#:[id number] Oral 480 Output: Urine 200 500 Other: Voiding Method Toilet Urinal # Voids 1 1 2 - Exam Head normocephalic Neck supple Lungs clear to auscultation bilaterally no wheezing or crackles Heart A. fib on monitor. Rate controlled Abdomen is soft nontender nondistended positive bowel sounds no hepatosplenomegaly Extremities no edema Neuro alert and orientated to 3 - Labs CBC & Chem 7: 06/01/17 05:18 06/01/17 05:18 Labs: Abnormal Lab Results - Last 24 Hours (Table) 05/31/17 06/01/17 06/01/17 Range/Units 17:16 05:18 05:18 RBC 4.29 L (4.30-5.90) m/uL APTT 54.3 H 56.5 H (22.0-30.0) sec Assessment and Plan Plan: 1. New onset atrial fibrillation: Heart rate well controlled. Patient was seen and evaluated by cardiology. Thyroid function test checked and normal. Currently on IV heparin for anticoagulation. Echocardiogram showed preserved ejection fraction with no significant valvular abnormalities. Await cardiology recommendations regarding oral anticoagulation 2. Right pleural-based density measuring approximately 1.7 cm noted on chest x- ray. Computed tomography scan of the chest ordered for further evaluation showing benign-appearing focal pleural thickening with no associated calcification, mass, or underlying liver lesion. Patient was seen and evaluated by pulmonology. No further evaluation is needed at this time. 3. Essential hypertension: Blood pressure well-controlled 4. Mixed hyperlipidemia: On Lipitor 5. Chest pain: Normal troponins. Patient scheduled for stress test to rule out any severe underlying coronary artery disease. I performed an examination of the patient and discussed their management with the physician Loan Approver. I have reviewed the Physician Loan Approver's notes and agree with the documented findings and plan of care
--- NOTE | 2017-06-01 10:32 | P.PN ---
Subjective Principal diagnosis: Chest pain/fibrillation This is a pleasant 67-year-old gentleman with history of hypertension , hyperlipidemia, who presents to the hospital with symptoms of chest discomfort. On presentation to the emergency room he was found to be in atrial fibrillation with nonspecific ST-T wave changes. This appeared to be new for the patient. Cardiac enzymes and troponins were negative 3. Patient was seen in consultation yesterday by Dr. Bailey and recommended undergo a Lexiscan stress test today. On initiation of the stress test, patient did go into atrial fibrillation with rapid ventricular response and was given IV Lopressor. Echocardiogram with Doppler study was performed which revealed an ejection fraction of 55-60%. At the time of my examination this morning, prior to the stress test, patient denied any chest pain, breathing is stable. Complaining of mild headache. Objective - Vital Signs Vital signs: Vital Signs Temp 97 F L 06/01/17 08:00 Pulse 94 06/01/17 08:00 Resp 16 06/01/17 08:00 BP 130/63 06/01/17 08:00 Pulse Ox 96 06/01/17 08:00 Intake & Output 05/31/17 06/01/17 06/01/17 18:59 06:59 18:59 Intake Total 1168.8 630.943 Output Total 200 500 Balance 968.8 130.943 Weight 94.9 kg Intake: IV 188.8 100 0.9 100 Heparin Sodium,Porcine/ 188.8 D5w Pmx 25,000 unit In Dextrose/Water 1 500ml. bag @ 10.68 UNITS/KG/HR 20.01 mls/hr IV .Q24H [facility] Rx#:[id number] Intake, IV Titration 500 530.943 Amount Heparin Sodium,Porcine/ 500 530.943 D5w Pmx 25,000 unit In Dextrose/Water 1 500ml. bag @ 10.68 UNITS/KG/HR 20.01 mls/hr IV .Q24H [facility] Rx#:[id number] Oral 480 Output: Urine 200 500 Other: Voiding Method Toilet Urinal # Voids 1 1 2 - Exam PHYSICAL EXAMINATION: HEENT: Head is atraumatic, normocephalic. Pupils equal, round. Neck is supple. There is no elevated jugular venous pressure. HEART EXAMINATION: Heart S1, S2 normal. No murmur or gallop heard. CHEST EXAMINATION: Lungs are clear to auscultation and precussion. No chest wall tenderness is noted on palpation or with deep breathing. ABDOMEN: Soft, nontender. Bowel sounds are heard. No organomegaly noted. EXTREMITIES: 2+ peripheral pulses with no evidence of peripheral edema and no calf tenderness noted. NEUROLOGIC patient is awake, alert and oriented -3. . - Labs CBC & Chem 7: 06/01/17 05:18 06/01/17 05:18 Labs: Abnormal Lab Results - Last 24 Hours (Table) 05/31/17 06/01/17 06/01/17 Range/Units 17:16 05:18 05:18 RBC 4.29 L (4.30-5.90) m/uL APTT 54.3 H 56.5 H (22.0-30.0) sec Assessment and Plan (1) Chest pain Status: Acute (2) Paroxysmal a-fib Status: Acute (3) Hyperlipidemia Status: Acute (4) Hypertension Status: Acute (5) Pleural mass Status: Acute Plan: From cardiology's perspective, we will continue the patient on his IV heparin until we have the results of the stress test. If the stress test is positive patient will need to undergo cardiac catheterization, if the stress test is negative we will start the patient on Eliquis. TSH level was obtained which came back to be normal. DNP note has been reviewed, I agree with a documented findings and plan of care. Patient was seen and examined.
--- NOTE | 2017-06-01 13:18 | NM ---
EXAMINATION TYPE: NM stress lexiscan cardiolite DATE OF EXAM: 06/01/2017 COMPARISON: Chest x-ray 05/29/2017 HISTORY: Dysrhythmia, chest pain TECHNIQUE: After the intravenous administration of 11.1 mCi Tc 99m Sestamibi - Cardiolite resting SP ECT images acquired 55 minutes post injection. The patient received 0.4mg Lexiscan, 28.3 mCi Tc 99m Sestamibi - Stress images obtained [address] injection FINDINGS: Review of stress and rest SPECT images demonstrates some decreased reaffirms uptake along the inferio r septal left ventricle on stress as compared to rest images especially towards the base of the heart . Gated analysis shows normal wall motion with an estimated left ventricular ejection fraction of 49 %. 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
[2017-06-01] MEDS ORDERED: NITROGLYCERIN SL TABS 0.4 MG TAB SUBLINGUAL PRN (13:21)
[2017-06-01] MEDS ORDERED: ALPRAZolam 0.25 MG TAB PO PRN (13:21)
[2017-06-01] MEDS ORDERED: ALPRAZolam 0.5 MG TAB PO PRN (13:21)
[2017-06-01] MEDS ORDERED: ATORVASTATIN 80 MG TAB PO STA (13:21)
[2017-06-01] MEDS ORDERED: SODIUM CHLORIDE 0.9% 1,000 ML in EMPTY BAG 1 BAG IV ONE (13:21)
[2017-06-01] MEDS ORDERED: ASPIRIN 325 MG TAB PO STA (13:21)
[2017-06-01] MEDS ORDERED: ASPIRIN 325 MG TAB ONE (13:32)
[2017-06-01] MEDS ORDERED: LIDOCAINE 2% INJ 20 MG/ML (20 ML MDV) ONE (13:32)
[2017-06-01] MEDS ORDERED: MIDAZOLAM 2 MG/2 ML VIAL ONE (13:54)
[2017-06-01] MEDS ORDERED: VERAPAMIL 2.5 MG/ML 2 ML AMP ONE (13:54)
[2017-06-01] MEDS ORDERED: IV FLUID CONTINUATION 1,000 ML IV ONE (13:56)
[2017-06-01] MEDS ORDERED: ASPIRIN 325 MG TAB PO ONE (14:00)
[2017-06-01] MEDS ORDERED: MIDAZOLAM 2 MG/2 ML VIAL IVP ONE (14:05)
[2017-06-01] MEDS ORDERED: LIDOCAINE 2% INJ 20 MG/ML SQ ONE (14:08)
[2017-06-01] MEDS: VERAPAMIL SYRINGE (5 MG/10 ML) INTRAARTER ONE ×2 (14:09→14:21)
[2017-06-01] MEDS ORDERED: HEPARIN SODIUM 1,000 UN/ML (10ML VL) ONE (14:09)
[2017-06-01] MEDS ORDERED: HEPARIN SODIUM 1,000 UN/ML (10ML VL) IV ONE (14:11)
[2017-06-01] MEDS ORDERED: IOHEXOL 350 MG/ML 125ML BOTTLE INJ ONE (14:21)
[2017-06-01] MEDS ORDERED: RX INFO: IV CONTRAST WAS GIVEN 1 EACH MISC MISCELLANE PRN (14:27)
[2017-06-01] MEDS ORDERED: SODIUM CHLORIDE 0.9% 1,000 ML IV SCH (14:30)
[2017-06-01] MEDS: ASPIRIN 325 MG TAB PO SCH (14:48)
[2017-06-01] MEDS: ATENOLOL 25 MG TAB PO SCH (14:51)
[2017-06-01] MEDS: MELOXICAM 7.5 MG TAB PO SCH (14:51)
[2017-06-01] MEDS: VIT A,C & E-LUTEIN-MINERALS 1 EACH TAB PO SCH (14:52)
--- NOTE | 2017-06-01 15:04 | EST ---
EXERCISE STRESS AGE: 67 SEX: M HT: 71" WT: 207 PROTOCOL: LEXISCAN CARDIOLITE STRESS TEST HEART RATE REST: 93 BLOOD PRESSURE REST: 137/99 MAXIMUM HEART RATE ACHIEVED: 163 MAXIMUM BLOOD PRESSURE: 147/105 85% MPHR: 132 100% MPHR: 155 INDICATIONS: Chest pain, dizzy. CLINICAL INFORMATION: A 67-year-old male patient who complained of chest pain and dizziness and was sent for an x-ray and Cardiolite stress test. Patient was in A. fib at the start of the study, heart rate 93 beats per minute. Patient received Lexiscan infusion per protocol. His atrial fibrillation rate sped up to almost 161 beats per minute. There was no ECG evidence for ischemia. He received metoprolol 5 mg IV for rate control and subsequently underwent a nuclear imaging. Occasional PVCs are noted. IMPRESSION: Increase in heart rate during Lexiscan infusion but without any ST-segment abnormalities. Occasional premature ventricular contractions noted. The patient atrial fibrillation with baseline 12-lead ECG. Nuclear portion will be reported separately. Blood pressure remained stable. MMODL / IJN: [id number] /
--- NOTE | 2017-06-01 15:16 | CC ---
CARDIAC CATHETERIZATION REPORT DATE OF SERVICE: 06/01/2017. PERFORMING PHYSICIAN: Gael Narayan MD, Sheriff'S Detective. PROCEDURE PERFORMED: Selective right and left coronary angiogram. INDICATION: This is a pleasant 67-year-old gentleman who was admitted to the hospital with chest discomfort and was found to be in A. fib. He underwent myocardial perfusion imaging stress test and that showed anterior ischemia. APPROACH: Right radial artery. COMPLICATION: None. LEVEL OF THE OF SEDATION: Moderate with a sedation length of 15 minutes. PROCEDURE DESCRIPTION: After obtaining an informed consent, the patient was brought to Cardiac Category Specialist. The right radial artery was cannulated using micropuncture technique, the micropuncture wire passed easily. Then I placed a 6-Upper Sorbian sheath in the right radial artery. Subsequently, I gave the patient 2 mg of verapamil IA and 3000 units of heparin IV. After that, I did selective right and left coronary angiogram using JR4 and JL 3.5 catheters. The procedure was completed without any complication. SELECTIVE CORONARY ANGIOGRAM. 1. The right coronary artery is a large caliber vessel and it is a dominant vessel. The right coronary artery is angiographically normal. It bifurcates distally into PDA and PLV branches. Both are angiographically normal. 2. The left main is angiographically normal. It bifurcates into the left circumflex and left anterior descending artery. 3. The left circumflex is angiographically normal. In the proximal portion, it gives rise into a large OM branch which trifurcates into 3 small branches and the 3 subbranches are angiographically normal. 4. The left anterior descending artery. The proximal LAD is angiographically normal and gives rise into a large first diag branch which seems to be angiographically normal. The mid LAD has a lesion, appeared to be in the range of 50% only. The LAD distally appeared to be angiographically normal. CONCLUSION: 1. Normal right coronary artery. 2. Normal left main coronary artery. 3. Normal left circumflex coronary artery. 4. Intermediate disease involving the mid left anterior descending artery. POSTPROCEDURE MANAGEMENT: Maximize medical treatment and follow up with the patient. MMODL / IJN: [id number] /
--- NOTE | 2017-06-01 15:20 | P.PN ---
Progress Note - Text The CAT scan of the chest was reviewed. The patient has no significant abnormalities along the pleural surface. No evidence of any pleural based lesions or any lung lesions. The patient was reassured. Based on the findings of pulmonary we'll sign off the case. Meanwhile the patient is still being seen with cardiology regarding his chronic arrhythmias and ongoing chest pain. We'll sign off the case.
[2017-06-01] MEDS: ATORVASTATIN 20 MG TAB PO SCH (18:49)
[2017-06-01] MEDS: TAMSULOSIN 0.4 MG CAP.ER.24H PO SCH (20:46)
[2017-06-01] MEDS: FINASTERIDE 5 MG TAB PO SCH (20:46)
[2017-06-02] MEDS: NITROGLYCERIN OINT 1 INCH/GM PACKET TOPICAL SCH (05:31)
[2017-06-02 06:36] LABS: Basophils # (A) 0.1 k/uL (0-0.2); Basophils % (A) 1 %; CHCM 35.3; Eosinophils # (A) 0.5 k/uL (0-0.7); Eosinophils % (A) 5 %; HDW 2.81; HGB 14.9 gm/dL (13.0-17.5); Luc % (Auto) 2; Lymphocytes # (A) 2.1 k/uL (1.0-4.8); Lymphocytes % (A) 21 %; MCH 32.8 pg (25.0-35.0); MCHC 33.8 g/dL (31.0-37.0); MCV 96.9 fL (80.0-100.0); Mean Platelet Volume 9.9; Monocytes # (A) 0.7 k/uL (0-1.0); Monocytes % (A) 7 %; Neutrophils # (A) 6.3 k/uL (1.3-7.7); Neutrophils % (A) 64 %; RBC 4.54 m/uL (4.30-5.90); RDW 13.7 % (11.5-15.5); WBC 9.8 k/uL (3.8-10.6)
[2017-06-02 06:56] LABS: Anion Gap 8 mmol/L; Blood Urea Nitrogen 13 mg/dL (9-20); Calcium 9.2 mg/dL (8.4-10.2); Carbon Dioxide 26 mmol/L (22-30); Chloride 105 mmol/L (98-107); Glucose 90 mg/dL (74-99); Non-African American GFR(MDRD) >60 (>60 ml/min/1.73 sqM); Potassium 4.1 mmol/L (3.5-5.1); Sodium 139 mmol/L (137-145)
[2017-06-02] MEDS: ASPIRIN 325 MG TAB PO SCH (07:44)
[2017-06-02] MEDS: MELOXICAM 7.5 MG TAB PO SCH (07:44)
[2017-06-02] MEDS: ATENOLOL 25 MG TAB PO SCH (07:44)
[2017-06-02 08:15] VITALS: BP 132/90; PULSE 79; RESP 18; TEMP 97.1
[2017-06-02] MEDS ORDERED: ATORVASTATIN 80 MG TAB PO SCH (09:00)
[2017-06-02] MEDS ORDERED: APIXABAN 5 MG TAB PO SCH (09:00)
--- NOTE | 2017-06-02 10:02 | P.PN ---
Subjective Principal diagnosis: Chest pain/fibrillation This is a pleasant 67-year-old gentleman with history of hypertension , hyperlipidemia, who presents to the hospital with symptoms of chest discomfort. On presentation to the emergency room he was found to be in atrial fibrillation with nonspecific ST-T wave changes. This appeared to be new for the patient. Cardiac enzymes and troponins were negative 3. Patient was seen in consultation yesterday by Dr. Bailey and recommended undergo a Lexiscan stress test today. On initiation of the stress test, patient did go into atrial fibrillation with rapid ventricular response and was given IV Lopressor. Echocardiogram with Doppler study was performed which revealed an ejection fraction of 55-60%. At the time of my examination this morning, prior to the stress test, patient denied any chest pain, breathing is stable. Complaining of mild headache. 06/02/2017 Patient underwent a stress test yesterday, findings were compatible with pharmacologically induced left ventricular myocardial ischemia for this reason patient underwent a cardiac catheterization yesterday. Heart catheterization revealed a normal right coronary artery, normal left main coronary artery, normal left circumflex artery, intermediate disease in the LAD, maximal medical therapy advised. Patient seen and examined this morning, denies any chest discomfort, no palpitations, no shortness of breath, no dizziness or lightheadedness. Continues to be in atrial fibrillation with a heart rate in the 70s. Blood pressure 130/90 with a heart rate in the 70s to 80s. CBC normal , potassium 4.1, BUN 13, creatinine 0.8. Patient is on Eliquis for anticoagulation, he is also on atenolol 25 mg daily along with Lipitor 80. He may be able to be discharged home today from cardiology's perspective, we will make him a follow-up appointment to see Dr. Bailey in the office post discharge. Objective - Vital Signs Vital signs: Vital Signs Temp 97.1 F L 06/02/17 08:00 Pulse 79 06/02/17 08:00 Resp 18 06/02/17 08:00 BP 132/90 06/02/17 08:00 Pulse Ox 97 06/02/17 08:00 Intake & Output 06/01/17 06/02/17 06/02/17 18:59 06:59 18:59 Intake Total 50 600 Output Total 475 Balance 50 125 Weight 94.2 kg Intake: IV 50 600 0.9 600 Output: Urine 475 Other: Voiding Method Toilet Urinal # Voids 1 1 - Exam PHYSICAL EXAMINATION: HEENT: Head is atraumatic, normocephalic. Pupils equal, round. Neck is supple. There is no elevated jugular venous pressure. HEART EXAMINATION: Heart S1, S2 irregularly irregular . No murmur or gallop heard. CHEST EXAMINATION: Lungs are clear to auscultation and precussion. No chest wall tenderness is noted on palpation or with deep breathing. ABDOMEN: Soft, nontender. Bowel sounds are heard. No organomegaly noted. EXTREMITIES: 2+ peripheral pulses with no evidence of peripheral edema and no calf tenderness noted. NEUROLOGIC patient is awake, alert and oriented -3. . - Labs CBC & Chem 7: 06/02/17 05:17 06/02/17 05:17 Assessment and Plan (1) Chest pain Status: Acute (2) Paroxysmal a-fib Status: Acute (3) Hyperlipidemia Status: Acute (4) Hypertension Status: Acute (5) Pleural mass Status: Acute (6) S/P cardiac cath Status: Acute Plan: From cardiology's perspective, we will discontinue the IV heparin, and initiate Eliquis 5 mg one tablet by mouth twice a day. Continue baby aspirin daily, atenolol 25 mg daily, Lipitor 80 mg daily. We will make him a follow-up appointment to see Dr. Bailey in the office post discharge. DNP note has been reviewed, I agree with a documented findings and plan of care. Patient was seen and examined.
--- NOTE | 2017-06-02 11:31 | P.DS ---
Providers Date of admission: 05/31/17 11:27 Expected date of discharge: 06/02/17 Attending physician: Juan Pablo Marquez Consults: 05/29/17 15:15 Consult Physician Urgent Consulting Provider: [facility] Consult Reason/Comments: Unstable angina Do you want consulting provider notified?: Yes 05/30/17 11:35 Consult Physician Routine Consulting Provider: Aleksandar Stewart Reason/Comments: abNormal chest x-ray Do you want consulting provider notified?: Yes Primary care physician: [facility] Course: Diagnoses on discharge: 1. New onset atrial fibrillation: Heart rate well controlled. Patient was seen and evaluated by cardiology. Thyroid function test checked and normal. Currently on IV heparin for anticoagulation. Echocardiogram showed preserved ejection fraction with no significant valvular abnormalities. cardiology added Eliquis 5 mg bid to regimen. 2. Right pleural-based density measuring approximately 1.7 cm noted on chest x- ray. Computed tomography scan of the chest ordered for further evaluation showing benign-appearing focal pleural thickening with no associated calcification, mass, or underlying liver lesion. Patient was seen and evaluated by pulmonology. No further evaluation is needed at this time. 3. Essential hypertension: Blood pressure well-controlled 4. Mixed hyperlipidemia: On Lipitor 5. Chest pain: Normal troponins. Patient had abnormal stress test. Cardiac catheterization done no significant abnormality seen. Hospital course: This is a 67-year-old gentleman with past medical history noted below who presented to the hospital with chest discomfort and tightening. Patient said that his symptoms started when he was at work with what he describes as heart fluttering and chest discomfort. He denies jeison chest pain. No radiation reported. No dizziness or lightheadedness. No diaphoresis. Patient said that he has a history of PVCs in the past but was never diagnosed with A. fib. Patient was evaluated in the emergency room and was noted to have evidence of atrial fibrillation on 12-lead EKG. Heart rate was controlled. Chest x-ray showed findings concerning for pleural-based density measuring approximately 1.7 centimeters concerning for possible malignancy. Patient is a nonsmoker. He is not aware of any abnormal findings on prior x-rays. Patient was evaluated by cardiology, underwent cardiac cath which was negative he was also evaluated by pulmonary regarding pleural based density, no further evauation recommended,. Patient was asymptomatic, he was discharged home on 06/02/2017 follow up in the office with me within 1 week. Plan - Discharge Summary New Discharge Prescriptions: New Apixaban [Eliquis] 5 mg PO BID tab Continue Dutasteride [Avodart] 0.5 mg PO HS Tamsulosin HCl [Flomax] 0.4 mg PO HS Atenolol [Tenormin] 25 mg PO DAILY Simvastatin [Zocor] 40 mg PO DAILY Meloxicam [Mobic] 15 mg PO DAILY Vits A,C,E/Lutein/Minerals [Ocuvite with Lutein Tablet] 1 tab PO DAILY Aspirin 81 mg PO DAILY Discharge Medication List Aspirin 81 mg PO DAILY 05/29/17 [History] Atenolol [Tenormin] 25 mg PO DAILY 05/29/17 [History] Dutasteride [Avodart] 0.5 mg PO HS 05/29/17 [History] Meloxicam [Mobic] 15 mg PO DAILY 05/29/17 [History] Simvastatin [Zocor] 40 mg PO DAILY 05/29/17 [History] Tamsulosin HCl [Flomax] 0.4 mg PO HS 05/29/17 [History] Vits A,C,E/Lutein/Minerals [Ocuvite with Lutein Tablet] 1 tab PO DAILY 05/29/17 [History] Apixaban [Eliquis] 5 mg PO BID tab 06/02/17 [Rx] Follow up Appointment(s)/Referral(s): Gael Narayan MD [STAFF PHYSICIAN] - 1 Week Cecelia Evangelista MD [Primary Care Provider] - 1-2 days
== END 2017-06-02 13:03 | disposition home or self-care (01) | DRG 287 ==
LOC: EC 13:35 → 6SEL 15:15 → OBSVTOIN 05-31 11:27
PROVIDERS: ADMIT Internal Medicine; ATTEND Internal Medicine
PROC: B2111ZZ Fluoroscopy of Multiple Coronary Arteries using Low Osmolar Contrast (ICD-10-PCS; 2017-06-01)
PROC: 4A12XM4 Monitoring of Cardiac Stress, External Approach (ICD-10-PCS; 2017-06-01)
PROC: 3E033HZ Introduction of Radioactive Substance into Peripheral Vein, Percutaneous Approach (ICD-10-PCS; 2017-06-01)
PROC: C22G1ZZ Tomographic (Tomo) Nuclear Medicine Imaging of Myocardium using Technetium 99m (Tc-99m) (ICD-10-PCS; 2017-06-01)
PROC: 4A023N7 Measurement of Cardiac Sampling and Pressure, Left Heart, Percutaneous Approach (ICD-10-PCS; principal; 2017-06-01 07:30)
DX: I48.0 Paroxysmal atrial fibrillation (principal); G30.9 Alzheimer's disease, unspecified; I10 Essential (primary) hypertension; F02.80 Dementia in other diseases classified elsewhere, unspecified severity, without behavioral disturbance, psychotic disturbance, mood disturbance, and anxiety; E78.2 Mixed hyperlipidemia; I49.3 Ventricular premature depolarization; R07.9 Chest pain, unspecified; R94.39 Abnormal result of other cardiovascular function study; R91.8 Other nonspecific abnormal finding of lung field; E78.00 Pure hypercholesterolemia, unspecified; I25.10 Atherosclerotic heart disease of native coronary artery without angina pectoris; K21.9 Gastro-esophageal reflux disease without esophagitis; N40.0 Benign prostatic hyperplasia without lower urinary tract symptoms; E66.9 Obesity, unspecified; M19.90 Unspecified osteoarthritis, unspecified site; H35.30 Unspecified macular degeneration; R61 Generalized hyperhidrosis; R51 Headache; Z87.442 Personal history of urinary calculi; Z79.82 Long term (current) use of aspirin; Z79.899 Other long term (current) drug therapy; Z79.1 Long term (current) use of non-steroidal anti-inflammatories (NSAID); Z80.6 Family history of leukemia; Z90.49 Acquired absence of other specified parts of digestive tract; Z86.69 Personal history of other diseases of the nervous system and sense organs; Z87.11 Personal history of peptic ulcer disease; Z98.42 Cataract extraction status, left eye; Z87.81 Personal history of (healed) traumatic fracture
CPT/HCPCS: 36415; 71020; 71260; 78452; 80048; 80053; 80061; 82272; 82550; 82553; 83735; 84439; 84443; 84484; 85025; 85610; 85730; 93005; 93017; 93306; 99291

== ENCOUNTER 2017-06-26 06:25 | Day surgery (SDC) | payer BC, MEDICARE, OTHER ==
[~2017-06-26 06:25] MED LIST: LACTATED RINGERS 1,000 ML IV SCH; SODIUM CHLORIDE 0.9% 1,000 ML IV SCH
[2017-06-26 07:04] VITALS: TEMP 98
[2017-06-26] MEDS ORDERED: IV FLUID CONTINUATION 1,000 ML IV ONE (07:29)
[2017-06-26] MEDS ORDERED: LIDOCAINE 1% INJ 10MG/ML (20 ML MDV) ONE (07:35)
[2017-06-26] MEDS ORDERED: PROPOFOL 10 MG/ML 20 ML VIAL IV ONE (07:35)
--- NOTE | 2017-06-26 08:20 | CE ---
CARDIAC ELECTROPHYSIOLOGY REPORT DATE OF SERVICE: 06/26/2017 PERFORMING PHYSICIAN: Gael Narayan MD, Child Support Specialist. PROCEDURE PERFORMED: Cardioversion of atrial fibrillation to normal sinus mechanism. INDICATION: This is a pleasant 67-year-old gentleman who was diagnosed recently with atrial fibrillation and continues to be in A. fib with controlled heart rate, but he was asymptomatic with that. He was brought today to undergo a cardioversion. COMPLICATION: None. LEVEL OF SEDATION: Deep sedation was performed with GROUNDSKEEPER in the room. PROCEDURE DESCRIPTION: After obtaining an informed consent, the patient was brought to the recovery room. General anesthesia was performed with GROUNDSKEEPER in the room. After that, the patient was converted from A. fib to sinus mechanism using 200 joules on first attempt. CONCLUSION: Successful cardioversion of atrial fibrillation to normal sinus mechanism using 200 joules on first attempt. MMODL / IJN: [id number] /
[2017-06-26 10:02] VITALS: BP 120/77; PULSE 60; RESP 20
== END 2017-06-26 09:50 | disposition home or self-care (01) ==
LOC: CATHCVL 06:25
PROVIDERS: ATTEND Internal Medicine Interventional Cardiology
DX: I48.0 Paroxysmal atrial fibrillation (principal); I25.10 Atherosclerotic heart disease of native coronary artery without angina pectoris; I10 Essential (primary) hypertension; E78.5 Hyperlipidemia, unspecified; H35.30 Unspecified macular degeneration; K21.9 Gastro-esophageal reflux disease without esophagitis; Z79.02 Long term (current) use of antithrombotics/antiplatelets; Z79.899 Other long term (current) drug therapy
CPT/HCPCS: 92960; 93005; J2001; J2704

== ENCOUNTER → 2017-11-14 | Outpatient (CLI) | payer BC ==
[2017-11-14 07:57] LABS: HCT 43.6 % (39.0-53.0); HGB 14.3 gm/dL (13.0-17.5); MCH 31.8 pg (25.0-35.0); MCHC 32.8 g/dL (31.0-37.0); MCV 96.9 fL (80.0-100.0); Mean Platelet Volume 8.7; Platelet Count 185 k/uL (150-450); RDW 12.8 % (11.5-15.5); WBC 9.7 k/uL (3.8-10.6)
[2017-11-14 10:34] LABS: ALT 53 U/L (21-72); AST 29 U/L (17-59); Albumin 3.9 g/dL (3.5-5.0); Alkaline Phosphatase 87 U/L (38-126); Anion Gap 7 mmol/L; Blood Urea Nitrogen 13 mg/dL (9-20); Calcium 9.4 mg/dL (8.4-10.2); Carbon Dioxide 30 mmol/L (22-30); Chloride 107 mmol/L (98-107); Cholesterol 112 mg/dL (<200); Glucose 104 mg/dL (74-99); HDL Cholesterol 45 mg/dL (40-60); LDL Cholesterol,Calculated 54 mg/dL (0-99); Potassium 4.2 mmol/L (3.5-5.1); Sodium 144 mmol/L (137-145); Total Bilirubin 0.6 mg/dL (0.2-1.3); Total Protein 6.8 g/dL (6.3-8.2); Triglycerides 64 mg/dL (<150); Uric Acid 6.6 mg/dL (3.5-8.5)
[2017-11-14 11:03] LABS: PSA Annual Screen 1.18 ng/mL (0.00-4.00)
== END | disposition home or self-care (01) ==
LOC: LABWHC1 07:22
PROVIDERS: ATTEND Internal Medicine
DX: E78.5 Hyperlipidemia, unspecified (principal); I48.91 Unspecified atrial fibrillation; M19.90 Unspecified osteoarthritis, unspecified site; I10 Essential (primary) hypertension; Z12.5 Encounter for screening for malignant neoplasm of prostate
CPT/HCPCS: 80061; 80053; 84443; 84550; 85027; 36415; G0103

== ENCOUNTER → 2018-04-13 | Outpatient (CLI) | payer MEDICARE ==
[2018-04-13 07:34] LABS: HCT 45.3 % (39.0-53.0); HGB 15.1 gm/dL (13.0-17.5); MCH 31.6 pg (25.0-35.0); MCHC 33.3 g/dL (31.0-37.0); MCV 95.1 fL (80.0-100.0); Mean Platelet Volume 9.2; Platelet Count 178 k/uL (150-450); RBC 4.76 m/uL (4.30-5.90); RDW 12.7 % (11.5-15.5); WBC 8.7 k/uL (3.8-10.6)
[2018-04-13 07:54] LABS: Potassium 4.3 mmol/L (3.5-5.1)
== END | disposition home or self-care (01) ==
LOC: LABPAT 07:13
PROVIDERS: ATTEND Internal Medicine Interventional Cardiology
DX: Z01.812 Encounter for preprocedural laboratory examination (principal); R07.9 Chest pain, unspecified
CPT/HCPCS: 36415; 80051; 82565; 84520; 85027

== ENCOUNTER → 2018-04-20 | Day surgery (SDC) | payer MEDICARE ==
[2018-04-15 08:27] VITALS: BMI 30.2
[~2018-04-20] MED LIST changes: +ALPRAZolam 0.25 MG TAB PO PRN; +ASPIRIN 325 MG TAB PO STA; +ATORVASTATIN 80 MG TAB PO STA; +HEPARIN SODIUM 1,000 UN/ML (10ML VL) IVPB ONE; +HEPARIN SODIUM 1,000 UN/ML (10ML VL) ONE; +IOPAMIDOL-370 125ML BTL INJ ONE; -LACTATED RINGERS 1,000 ML IV SCH; +LIDOCAINE 1% INJ 10MG/ML (20 ML MDV) SQ ONE; +MIDAZOLAM 2 MG/2 ML VIAL IVP ONE; +MIDAZOLAM 2 MG/2 ML VIAL ONE; +RX INFO: IV CONTRAST WAS GIVEN 1 EACH MISC MISCELLANE PRN; +SODIUM CHLORIDE 0.9% 1,000 ML in EMPTY BAG 1 BAG IV ONE; +VERAPAMIL 2.5 MG/ML 2 ML AMP ONE; +VERAPAMIL SYRINGE (5 MG/10 ML) INTRAARTER ONE; +fentaNYL (PF) 50 MCG/ML 2 ML AMP IVP ONE; +fentaNYL (PF) 50 MCG/ML 2 ML AMP ONE
[2018-04-20 07:04] VITALS: TEMP 97.9
[2018-04-20] MEDS: VERAPAMIL SYRINGE (5 MG/10 ML) INTRAARTER ONE ×2 (07:45→08:05)
[2018-04-20 09:08] VITALS: RESP 18
--- NOTE | 2018-04-20 09:15 | LTR ---
April 20, 2018 Re: Johnnie Martinez Dear Dr. Evangelista: Mr. Johnnie Martinez underwent a heart catheterization today and that revealed mild nonobstructive disease involving the left anterior descending artery. I want to thank you for allowing me to participate in his care and please do not hesitate to call if you have any question or concern. Sincerely, Gael Narayan MD MMDIMA / JOSEN: [id number] /
--- NOTE | 2018-04-20 09:15 | CC ---
CARDIAC CATHETERIZATION REPORT DATE OF SERVICE: 04/20/2018 PERFORMING PHYSICIAN: Gael Narayan MD, Patient Access Manager. PROCEDURE PERFORMED: 1. Selective right and left coronary angiogram. 2. Left heart catheterization. INDICATION: This is a pleasant 68-year-old gentleman who was experiencing chest discomfort concerning for angina. He is known to have coronary artery disease, paroxysmal atrial fibrillation, hypertension, and dyslipidemia. He was brought today to undergo a heart catheterization. APPROACH: Right radial artery. COMPLICATION: None. LEVEL OF SEDATION: Moderate with sedation length of 17 minutes. PROCEDURE DESCRIPTION: After obtaining an informed consent, the patient was brought to the cardiac cleaning laborer. The right radial artery was cannulated using micropuncture technique, the micropuncture wire passed easily then I placed a 6-Slovak sheath in the right radial artery. Subsequently, the patient was given 2mg of verapamil and 10,00 units of heparin IV. Subsequently, I did selective right and left coronary angiogram using JR4 and JL3.5 catheters. Left heart catheterization was performed using the JR4 which flipped into the LV, then I did pullback across the aortic valve. The procedure was completed without any complication. SELECTIVE CORONARY ANGIOGRAM: 1. The RCA is a large caliber vessel and it is a dominant vessel. Distally bifurcates into PDA and PLV branches, both are angiographically normal. 2. The left main is angiographically normal, it bifurcates into left circumflex and left anterior descending artery. The left circumflex is a large caliber vessel. It is a nondominant vessel with the circumflex is angiographically normal, in the proximal portion gives rise into a large OM branch which bifurcates into 2 subbranches and seems to be angiographically normal as well. 3. The LAD, the proximal LAD appeared to have mild disease only. It gives rise into a large diagonal branch which seems to be angiographically normal. The mid LAD has also mild disease only. The LAD distally appeared to be angiographically normal. 4. Hemodynamics: The left ventricular end-diastolic pressure was 12 mmHg and no gradient was identified across the aortic valve. CONCLUSION: Mild nonobstructive disease involving the left anterior descending artery, seems to be unchanged compared to before. POSTPROCEDURE MANAGEMENT: Maximize medical treatment and follow up with the patient. MMODL / IJN: [id number] /
[2018-04-20 09:45] VITALS: BP 94/62; PULSE 58
== END ==
LOC: CATHCVL 06:19
PROVIDERS: ATTEND Internal Medicine Interventional Cardiology
DX: I25.110 Atherosclerotic heart disease of native coronary artery with unstable angina pectoris (principal); I10 Essential (primary) hypertension; E78.00 Pure hypercholesterolemia, unspecified
CPT/HCPCS: 93458; C1894 ×2; C1769; J2250; J2001; J3010; J1644; Q9967

== ENCOUNTER → 2018-09-22 | Outpatient (CLI) | payer MEDICARE ==
[2018-09-22 08:28] LABS: Basophils % (A) 1 %; Eosinophils # (A) 0.3 k/uL (0-0.7); Eosinophils % (A) 4 %; HCT 42.9 % (39.0-53.0); HGB 14.6 gm/dL (13.0-17.5); Lymphocytes # (A) 1.6 k/uL (1.0-4.8); Lymphocytes % (A) 21 %; MCH 32.9 pg (25.0-35.0); MCHC 34.1 g/dL (31.0-37.0); MCV 96.5 fL (80.0-100.0); Monocytes # (A) 0.5 k/uL (0-1.0); Monocytes % (A) 7 %; Neutrophils # (A) 5.2 k/uL (1.3-7.7); Neutrophils % (A) 66 %; Platelet Count 175 k/uL (150-450); RBC 4.45 m/uL (4.30-5.90); RDW 13.1 % (11.5-15.5); WBC 7.8 k/uL (3.8-10.6)
[2018-09-22 19:18] LABS: Albumin 4.1 g/dL (3.80-4.90); Albumin/Globulin Ratio 1.95 (1.20-2.10); Anion Gap 9.2 mmol/L (4.00-12.00); Calcium 8.8 mg/dL (8.7-10.3); Carbon Dioxide 25.8 mmol/L (21.6-31.8); Globulin 2.1 g/dL (1.6-3.3); LDL Cholesterol,Calculated 57.8 mg/dL (0.0-131.0); Potassium 4.1 mmol/L (3.5-5.5); Total Bilirubin 1.1 mg/dL (0.2-1.2); Total Protein 6.2 g/dL (6.2-8.2); VLDL Calculation 13.2 mg/dL (5.00-40.00)
== END ==
LOC: LABWHC1 07:35
PROVIDERS: ATTEND Internal Medicine
DX: E55.9 Vitamin D deficiency, unspecified (principal); E78.2 Mixed hyperlipidemia; I10 Essential (primary) hypertension
CPT/HCPCS: 36415; 80053; 80061; 82306; 84443; 85025

== ENCOUNTER → 2018-12-17 | Outpatient (CLI) | payer MEDICARE ==
--- NOTE | 2018-12-17 12:13 | XR ---
EXAMINATION TYPE: XR chest 2V DATE OF EXAM: 12/17/2018 COMPARISON: 05/29/2017 TECHNIQUE: PA and lateral views submitted. HISTORY: Cough FINDINGS: The lungs are clear and there is no pneumothorax, pleural effusion, or focal pneumonia. Arthropathy shoulders. No overt failure. Hypertrophic and degenerative changes of the spine. Surgical clips in t he abdomen. No overt failure. IMPRESSION: 1. No acute process.
== END | disposition home or self-care (01) ==
LOC: RADXRMAIN 11:47
PROVIDERS: ATTEND Internal Medicine
DX: R05 Cough (principal)
CPT/HCPCS: 71046

== ENCOUNTER → 2019-04-09 | Outpatient (CLI) | payer MEDICARE ==
[2019-04-09 09:38] LABS: HCT 46.2 % (39.0-53.0); HGB 15.7 gm/dL (13.0-17.5); MCHC 33.9 g/dL (31.0-37.0); MCV 97.2 fL (80.0-100.0); Mean Platelet Volume 9.6; Platelet Count 178 k/uL (150-450); RBC 4.75 m/uL (4.30-5.90); RDW 14.4 % (11.5-15.5); WBC 8.4 k/uL (3.8-10.6)
[2019-04-09 17:03] LABS: African American GFR (CKD) 102.1 (60.0-200.0); Albumin 4.4 g/dL (3.80-4.90); Albumin/Globulin Ratio 1.91 (1.60-3.17); Anion Gap 5.8 mmol/L (4.00-12.00); BUN/Creat Ratio 16.67 Ratio (12.00-20.00); Calcium 9.6 mg/dL (8.7-10.3); Carbon Dioxide 29.2 mmol/L (21.6-31.8); Globulin 2.3 g/dL (1.6-3.3); LDL Cholesterol,Calculated 75.6 mg/dL (0.0-131.0); Potassium 4.2 mmol/L (3.5-5.5); Total Bilirubin 0.9 mg/dL (0.2-1.2); Total Protein 6.7 g/dL (6.2-8.2); VLDL Calculation 18.4 mg/dL (5.00-40.00)
== END | disposition home or self-care (01) ==
LOC: LABWHC1 08:17
PROVIDERS: ATTEND Internal Medicine
DX: E78.5 Hyperlipidemia, unspecified (principal); I10 Essential (primary) hypertension; N40.0 Benign prostatic hyperplasia without lower urinary tract symptoms
CPT/HCPCS: 80061; 80053; 84443; 85027; 36415; G0103

== ENCOUNTER 2019-09-02 01:51 | Inpatient (IN) | payer MEDICARE ==
[2019-09-02] MEDS ORDERED: HYDROmorphone 0.5 MG/0.5 ML SYRINGE IVP STA (02:07)
--- NOTE | 2019-09-02 02:23 | XR ---
EXAMINATION TYPE: XR chest 1V portable DATE OF EXAM: 09/02/2019 COMPARISON: 12/17/2018 HISTORY: Trauma. Chest pain TECHNIQUE: Single view FINDINGS: There is no heart failure nor confluent pneumonic infiltrate. Costophrenic angles are clear . There are chest leads. IMPRESSION: No active cardiopulmonary disease. No pneumothorax. No change. Normal heart.
--- NOTE | 2019-09-02 02:24 | XR ---
EXAMINATION TYPE: XR pelvis AP view DATE OF EXAM: 09/02/2019 COMPARISON: NONE HISTORY: Fall. Pain. TECHNIQUE: Single view FINDINGS: Pelvic ring is intact. Proximal femurs and hip joints are intact. Sacroiliac joints appear normal. Hip joint spaces are fairly normal. IMPRESSION: Normal pelvis.
[2019-09-02 02:27] LABS: Basophils # (A) 0.1 k/uL (0-0.2); Basophils % (A) 1 %; Eosinophils # (A) 0.2 k/uL (0-0.7); Eosinophils % (A) 1 %; HCT 44.5 % (39.0-53.0); HGB 15.1 gm/dL (13.0-17.5); Lymphocytes # (A) 1.9 k/uL (1.0-4.8); Lymphocytes % (A) 12 %; MCH 32.3 pg (25.0-35.0); MCHC 33.9 g/dL (31.0-37.0); MCV 95.3 fL (80.0-100.0); Monocytes # (A) 0.7 k/uL (0-1.0); Monocytes % (A) 5 %; Neutrophils # (A) 12.8 k/uL (1.3-7.7); Neutrophils % (A) 81 %; Platelet Count 167 k/uL (150-450); RBC 4.67 m/uL (4.30-5.90); RDW 12.3 % (11.5-15.5); WBC 15.9 k/uL (3.8-10.6)
--- NOTE | 2019-09-02 02:27 | ED ---
General Adult HPI - General Chief complaint: Fall Stated complaint: Fall Time Seen by Provider: 09/02/19 02:02 Source: patient, RN notes reviewed, old records reviewed Mode of arrival: ambulatory Limitations: no limitations - History of Present Illness Initial comments: 69-year-old male history of A. fib on Eliquis presents status post fall. Patient fell down approximately 20 stairs. He is complaining of low back pain. He did have head injury with no loss of consciousness. He complains of some difficulty breathing which she relates to his low back pain. He denies abdominal pain. Denies extremity injury. He came through ambulatory triage. N o significant headache. No chest pain. No abdominal pain. - Related Data Home Medications Medication Instructions Recorded Confirmed Atenolol [Tenormin] 25 mg PO BID 05/29/17 04/20/18 Dutasteride [Avodart] 0.5 mg PO HS 05/29/17 04/20/18 Simvastatin [Zocor] 40 mg PO HS 05/29/17 04/20/18 Tamsulosin HCl [Flomax] 0.4 mg PO HS 05/29/17 04/20/18 Vits A,C,E/Lutein/Minerals 1 tab PO DAILY 05/29/17 04/20/18 [Ocuvite with Lutein Tablet] Isosorbide Dinitrate 30 mg PO DAILY 04/15/18 04/20/18 Previous Rx's Medication Instructions Recorded Apixaban [Eliquis] 5 mg PO BID tab 06/02/17 Allergies Allergy/AdvReac Type Severity Reaction Status Date / Time No Known Allergies Allergy Verified 09/02/19 01:59 Review of Systems ROS Statement: Those systems with pertinent positive or pertinent negative responses have been documented in the HPI. ROS Other: All systems not noted in ROS Statement are negative. Past Medical History Past Medical History: Dementia, GERD/Reflux, Hyperlipidemia, Hypertension, Memory Impairment, Prostate Disorder Additional Past Medical History / Comment(s): macular degeneration RT EYE MACULAR HOLE-HAD SX), "PAST ULCER", ALZHIEMERS,PAST KIDNEY STONES History of Any Multi-Drug Resistant Organisms: MRSA Date of last positivie culture/infection: 11/26/17 MDRO Source:: TOE Past Surgical History: Cholecystectomy, Hernia Repair Additional Past Surgical History / Comment(s): LT CATARACTS, RT EYE SX FOR MACULAR HOLE, MARLON FOOT SX 4-5 TH TOES BONE SX, LT KNEE SX ON CARTILAGE, LT SHOULDER BONE SOUR, LT ARM ORIF-PLATE, UNBILICAL HERNIA Past Anesthesia/Blood Transfusion Reactions: No Reported Reaction Past Psychological History: No Psychological Hx Reported Smoking Status: Never smoker Past Alcohol Use History: None Reported Past Drug Use History: None Reported - Past Family History Mother Family Medical History: Cancer Additional Family Medical History / Comment(s): LEUKEMIA Father Additional Family Medical History / Comment(s): CEREBRAL ANEURYSM General Exam Limitations: no limitations General appearance: alert, in no apparent distress Head exam: Present: atraumatic, normocephalic Eye exam: Present: normal appearance, PERRL ENT exam: Present: normal exam Neck exam: Present: normal inspection, full ROM. Absent: tenderness, meningismus Respiratory exam: Present: normal lung sounds bilaterally. Absent: respiratory distress, wheezes Cardiovascular Exam: Present: regular rate, normal rhythm GI/Abdominal exam: Present: soft, distended. Absent: tenderness, guarding, rebound Extremities exam: Present: normal inspection, full ROM, normal capillary refill. Absent: tenderness, pedal edema, joint swelling, calf tenderness Back exam: Present: tenderness, paraspinal tenderness, vertebral tenderness (lumbar spine) Neurological exam: Present: alert, oriented X3, CN II-XII intact. Absent: motor sensory deficit Psychiatric exam: Present: normal affect, normal mood Skin exam: Present: warm, dry, intact. Absent: cyanosis, diaphoretic Course Vital Signs 09/02/19 01:55 Temperature 97.8 F Pulse Rate 99 Respiratory 20 Rate Blood Pressure 128/87 O2 Sat by Pulse 93 L Oximetry - Reevaluation(s) Reevaluation #1: 09/02/19 02:05 case discussed with trauma surgeon on-call Dr. Olson EKG Findings - EKG Comments: EKG Findings:: EKG: Atrial fibrillation with RVR, rate of 108, QRS duration 80, QTC 474, no ST segment elevation Medical Decision Making - Medical Decision Making 69 -year-old male presenting status post fall. Patient reports he fell down approximately 20 stairs. He had head trauma, but his main complaint is mid and low back pain. He came through a mandatory triage. IVs are established, he is evaluated according to ATLS protocol. He has stable initial vitals he is in A. fib with mild tachycardia. Blood pressure stable. Hemoglobin stable 15.1, normal electrolytes. Chest and pelvis x-ray obtained, negative for acute bony or melena, no pneumothorax. He's taken to computed tomography scan where he has a CT of the brain and cervical spine. Brain is negative for intracranial hemorrhage or mass effect. Cervical spine negative for fracture or subluxation. Chest and pelvis CT is obtained for blunt trauma on Eliquis, this is negative for acute intracranial thoracic or abdominal injury. No splenic lactic, no liver. No acute bony abnormality. no external signs of trauma to the middle low back. No step-off on exam. Moving bilateral lower extremities symmetrically. Patient has persistent pain mid back and low back. He will be placed in observation admitted to trauma surgeon on-call Dr. Olson, pain control and close observation. - Lab Data Result diagrams: 09/02/19 02:10 09/02/19 02:10 Lab Results 09/02/19 09/02/19 09/02/19 Range/Units 02:10 02:10 02:10 WBC 15.9 H (3.8-10.6) k/uL RBC 4.67 (4.30-5.90) m/uL Hgb 15.1 (13.0-17.5) gm/dL Hct 44.5 (39.0-53.0) % MCV 95.3 (80.0-100.0) fL MCH 32.3 (25.0-35.0) pg MCHC 33.9 (31.0-37.0) g/dL RDW 12.3 (11.5-15.5) % Plt Count 167 (150-450) k/uL Neutrophils % 81 % Lymphocytes % 12 % Monocytes % 5 % Eosinophils % 1 % Basophils % 1 % Neutrophils # 12.8 H (1.3-7.7) k/uL Lymphocytes # 1.9 (1.0-4.8) k/uL Monocytes # 0.7 (0-1.0) k/uL Eosinophils # 0.2 (0-0.7) k/uL Basophils # 0.1 (0-0.2) k/uL PT (9.0-12.0) sec INR (<1.2) APTT (22.0-30.0) sec Sodium 141 (137-145) mmol/L Potassium 3.8 (3.5-5.1) mmol/L Chloride 104 (98-107) mmol/L Carbon Dioxide 29 (22-30) mmol/L Anion Gap 8 mmol/L BUN 23 H (9-20) mg/dL Creatinine 1.08 (0.66-1.25) mg/dL Est GFR (CKD-EPI)AfAm 82 (>60 ml/min/1.73 sqM) Est GFR (CKD-EPI)NonAf 71 (>60 ml/min/1.73 sqM) Glucose 137 H (74-99) mg/dL Plasma Lactic Acid Alexys (0.7-2.0) mmol/L Calcium 9.5 (8.4-10.2) mg/dL Total Bilirubin 0.8 (0.2-1.3) mg/dL AST 38 (17-59) U/L ALT 34 (4-49) U/L Alkaline Phosphatase 92 (38-126) U/L Total Creatine Kinase 117 (55-170) U/L CK-MB (CK-2) 1.7 (0.0-2.4) ng/mL CK-MB (CK-2) Rel Index 1.5 Troponin I <0.012 (0.000-0.034) ng/mL Total Protein 7.4 (6.3-8.2) g/dL Albumin 4.4 (3.5-5.0) g/dL Amylase 35 (30-110) U/L Lipase 131 (23-300) U/L Serum Alcohol <10 mg/dL Blood Type Blood Type Confirm Blood Type Recheck Bld Type Recheck Status Antibody Screen Spec Expiration Date 09/02/19 09/02/19 09/02/19 Range/Units 02:10 02:10 02:10 WBC (3.8-10.6) k/uL RBC (4.30-5.90) m/uL Hgb (13.0-17.5) gm/dL Hct (39.0-53.0) % MCV (80.0-100.0) fL MCH (25.0-35.0) pg MCHC (31.0-37.0) g/dL RDW (11.5-15.5) % Plt Count (150-450) k/uL Neutrophils % % Lymphocytes % % Monocytes % % Eosinophils % % Basophils % % Neutrophils # (1.3-7.7) k/uL Lymphocytes # (1.0-4.8) k/uL Monocytes # (0-1.0) k/uL Eosinophils # (0-0.7) k/uL Basophils # (0-0.2) k/uL PT 10.7 (9.0-12.0) sec INR 1.0 (<1.2) APTT 22.8 (22.0-30.0) sec Sodium (137-145) mmol/L Potassium (3.5-5.1) mmol/L Chloride (98-107) mmol/L Carbon Dioxide (22-30) mmol/L Anion Gap mmol/L BUN (9-20) mg/dL Creatinine (0.66-1.25) mg/dL Est GFR (CKD-EPI)AfAm (>60 ml/min/1.73 sqM) Est GFR (CKD-EPI)NonAf (>60 ml/min/1.73 sqM) Glucose (74-99) mg/dL Plasma Lactic Acid Alexys 1.9 (0.7-2.0) mmol/L Calcium (8.4-10.2) mg/dL Total Bilirubin (0.2-1.3) mg/dL AST (17-59) U/L ALT (4-49) U/L Alkaline Phosphatase (38-126) U/L Total Creatine Kinase (55-170) U/L CK-MB (CK-2) (0.0-2.4) ng/mL CK-MB (CK-2) Rel Index Troponin I (0.000-0.034) ng/mL Total Protein (6.3-8.2) g/dL Albumin (3.5-5.0) g/dL Amylase (30-110) U/L Lipase (23-300) U/L Serum Alcohol mg/dL Blood Type O Positive Blood Type Confirm Blood Type Recheck No Previous Record Bld Type Recheck Status CABO Indicated Antibody Screen NEGATIVE Spec Expiration Date 09/05/2019 - 230909/02/19 Range/Units 02:11 WBC (3.8-10.6) k/uL RBC (4.30-5.90) m/uL Hgb (13.0-17.5) gm/dL Hct (39.0-53.0) % MCV (80.0-100.0) fL MCH (25.0-35.0) pg MCHC (31.0-37.0) g/dL RDW (11.5-15.5) % Plt Count (150-450) k/uL Neutrophils % % Lymphocytes % % Monocytes % % Eosinophils % % Basophils % % Neutrophils # (1.3-7.7) k/uL Lymphocytes # (1.0-4.8) k/uL Monocytes # (0-1.0) k/uL Eosinophils # (0-0.7) k/uL Basophils # (0-0.2) k/uL PT (9.0-12.0) sec INR (<1.2) APTT (22.0-30.0) sec Sodium (137-145) mmol/L Potassium (3.5-5.1) mmol/L Chloride (98-107) mmol/L Carbon Dioxide (22-30) mmol/L Anion Gap mmol/L BUN (9-20) mg/dL Creatinine (0.66-1.25) mg/dL Est GFR (CKD-EPI)AfAm (>60 ml/min/1.73 sqM) Est GFR (CKD-EPI)NonAf (>60 ml/min/1.73 sqM) Glucose (74-99) mg/dL Plasma Lactic Acid Alexys (0.7-2.0) mmol/L Calcium (8.4-10.2) mg/dL Total Bilirubin (0.2-1.3) mg/dL AST (17-59) U/L ALT (4-49) U/L Alkaline Phosphatase (38-126) U/L Total Creatine Kinase (55-170) U/L CK-MB (CK-2) (0.0-2.4) ng/mL CK-MB (CK-2) Rel Index Troponin I (0.000-0.034) ng/mL Total Protein (6.3-8.2) g/dL Albumin (3.5-5.0) g/dL Amylase (30-110) U/L Lipase (23-300) U/L Serum Alcohol mg/dL Blood Type Blood Type Confirm O Positive Blood Type Recheck Bld Type Recheck Status Antibody Screen Spec Expiration Date Critical Care Time Critical Care Time: Yes Total Critical Care Time: 35 Disposition Clinical Impression: Fall, Paroxysmal a-fib Disposition: ADMITTED IP TO THIS [facility] Condition: Stable Is patient prescribed a controlled substance at d/c from ED?: No Referrals: Cecelia Evangelista MD [Primary Care Provider] - 1-2 days Time of Disposition: 04:05
[2019-09-02 02:35] LABS: ALT 34 U/L (4-49); AST 38 U/L (17-59); African American GFR (CKD) 82 (>60 ml/min/1.73 sqM); Albumin 4.4 g/dL (3.5-5.0); Alcohol <10 mg/dL; Alkaline Phosphatase 92 U/L (38-126); Amylase 35 U/L (30-110); Anion Gap 8 mmol/L; Blood Urea Nitrogen 23 mg/dL (9-20); Calcium 9.5 mg/dL (8.4-10.2); Carbon Dioxide 29 mmol/L (22-30); Chloride 104 mmol/L (98-107); Glucose 137 mg/dL (74-99); Non-African American GFR(CKD) 71 (>60 ml/min/1.73 sqM); Potassium 3.8 mmol/L (3.5-5.1); Sodium 141 mmol/L (137-145); Total Bilirubin 0.8 mg/dL (0.2-1.3); Total Protein 7.4 g/dL (6.3-8.2)
[2019-09-02 02:37] LABS: Partial Thromboplastin Time 22.8 sec (22.0-30.0); Prothrombin Time 10.7 sec (9.0-12.0)
[2019-09-02 02:44] LABS: Creatine Kinase 117 U/L (55-170)
[2019-09-02] MEDS ORDERED: HYDROmorphone 1 MG/ML 1 ML SYRINGE IVP STA (02:56)
[2019-09-02 02:57] LABS: Creatine Kinase MB 1.7 ng/mL (0.0-2.4); Troponin I <0.012 ng/mL (0.000-0.034)
[2019-09-02] MEDS ORDERED: SODIUM CHLORIDE 0.9% 500 ML 500 ML IV STA (03:07)
--- NOTE | 2019-09-02 03:18 | CT ---
EXAMINATION TYPE: CT cervical spine wo con DATE OF EXAM: 09/02/2019 COMPARISON: None HISTORY: Fall Trauma. Neck pain CT DLP: 525.2 mGycm Automated exposure control for dose reduction was used. Multiple axial sections were obtained from the skull base to T1 vertebra without contrast. Vertebra have fairly normal alignment. There is moderate narrowing at C5-6 and C6-7 disc spaces. Ther e is spurring of the endplates. Facet joints are intact. Skull base is intact. There is ethmoid and f rontal sinus mucosal thickening. IMPRESSION: Spondylotic changes in the lower cervical spine. No fracture. Sinusitis.
--- NOTE | 2019-09-02 03:20 | CT ---
EXAMINATION TYPE: CT brain wo con DATE OF EXAM: 09/02/2019 COMPARISON: None HISTORY: FALL Headache CT DLP: 984.9 mGycm Automated exposure control for dose reduction was used. There is mild cerebral cortical atrophy. There is no mass effect nor midline shift. There is no sign of intracranial hemorrhage. The calvarium is intact. There is left parietal scalp hematoma. There is mild mucosal thickening in the frontal and ethmoid sinuses. IMPRESSION: Left parietal scalp hematoma. Mild sinusitis. No acute intracranial abnormality.
--- NOTE | 2019-09-02 03:27 | CT ---
EXAMINATION TYPE: CT ChestAbdPelvis w con DATE OF EXAM: 09/02/2019 COMPARISON: None HISTORY: FALL CT DLP: 1782 mGycm Automated exposure control for dose reduction was used. CONTRAST: Performed with IV Contrast, patient injected with 100 mL of Isovue 300. The lungs are clear of infiltrate. There is no pleural effusion. There is no mediastinal adenopathy. There are no hilar masses. Thoracic aorta is intact. There is mild atheromatous change. There is no a neurysm or dissection. Heart size is fairly normal. There is no pneumothorax. Liver spleen stomach appear normal. Bile ducts are not dilated. There is no pancreatic mass. There ar e clips from cholecystectomy. There is no adrenal mass. Kidneys show satisfactory contrast opacification. There is no hydronephrosi s. There are left renal parapelvic cysts. There is no retroperitoneal adenopathy. Bladder distends sm oothly. There is no inguinal hernia. There is no free fluid in the pelvis. Appendix appears normal. There is no mesenteric edema. There is no ascites or free air. There is no s ign of a bowel obstruction. Thoracic and lumbar vertebra have fairly normal alignment. There is no compression fracture. There is spurring in the thoracic and lumbar spine. The posterior elements are intact. Sternum is intact. The bony pelvis appears intact. Shoulder joints are intact. I see no rib fracture. There is left side subcutaneous increased density over the posterior pelvis. IMPRESSION: No sign of acute traumatic injury of the chest abdomen pelvis. There is subcutaneous density over the left iliac bone and left buttock consistent with subcutaneous hematoma and bruising.
[2019-09-02] MEDS ORDERED: IBUPROFEN 400 MG TAB PO PRN (04:34)
[2019-09-02] MEDS ORDERED: ONDANSETRON 4 MG/2 ML VIAL IVP PRN (04:34)
[2019-09-02] MEDS ORDERED: NALOXONE 0.4 MG/ML 1 ML VIAL IV PRN (04:34)
[2019-09-02] MEDS ORDERED: HYDROmorphone 0.5 MG/0.5 ML SYRINGE IVP PRN (04:34)
[2019-09-02] MEDS ORDERED: ACETAMINOPHEN TAB 325 MG TAB PO PRN (04:34)
[2019-09-02] MEDS: SODIUM CHLORIDE 0.9% 1,000 ML IV SCH (08:18)
[2019-09-02] MEDS: HYDROmorphone 1 MG/ML 1 ML SYRINGE IVP PRN ×2 (08:43→13:34)
[2019-09-02] MEDS ORDERED: ISOSORBIDE DINITRATE 10 MG TAB PO SCH (09:00)
[2019-09-02] MEDS: ATENOLOL 25 MG TAB PO SCH ×2 (09:35→22:11)
[2019-09-02] MEDS: ISOSORBIDE MONONITRATE ER 30 MG TAB.ER.24H PO SCH (09:35)
[2019-09-02] MEDS ORDERED: METHOCARBAMOL 500 MG TAB PO PRN (12:08)
--- NOTE | 2019-09-02 12:10 | P.GSHP ---
<Roseanne Wooten A - Last Filed: 09/02/19 12:10> History of Present Illness H&P Date: 09/02/19 Chief Complaint: fall CHIEF COMPLAINT: Fall HISTORY OF PRESENT ILLNESS: 69-year-old male who presented to the emergency room after falling down a flight of stairs at home. Patient examined in the emergency room. Patient states he got out of bed to use the bathroom. He states he was walking down the hallway and instead of turning left to go into the bathroom he continued straight which led him to the doorway that leads to the basement. Patient states he took one step down and fell down approximately 20 steps. Patients only complaint at this time is mid to lower back pain. He is laying on the bed in the ER. He is unable to ambulate or move freely in the bed due to severe pain. He reports having back pain once in a while in the past but nothing as severe as this. PAST MEDICAL HISTORY: See list. PAST SURGICAL HISTORY: See list. SOCIAL HISTORY: No illicit drug use. REVIEW OF SYSTEMS: CONSTITUTIONAL: Denies fever or chills. HEENT: Denies blurred vision, vision changes, or eye pain. Denies hemoptysis CARDIOVASCULAR: Denies chest pain or pressure. RESPIRATORY: No shortness of breath. GASTROINTESTINAL: Denies abdominal pain. HEMATOLOGIC: Denies bleeding disorders. GENITOURINARY: Denies any blood in urine. SKIN: Denies pruitis. Denies rash. Musculoskeletal: Reports severe mid to lower back pain. PHYSICAL EXAM: VITAL SIGNS: Reviewed. GENERAL: Well-developed in no acute distress. HEENT: No sclera icterus. Extraocular movements grossly intact. Moist buccal mucosa. Head is atraumatic, normocephalic. ABDOMEN: Soft. Nondistended. Nontender. NEUROLOGIC: Alert and oriented. Cranial nerves II through XII grossly intact. LABORATORY DATA: WBC 15.9. Hemoglobin 15.1. Platelet count 167. IMAGIN. Chest x-ray: No active cardiopulmonary disease. No pneumothorax. 2. X-ray pelvis: Normal. No acute process. 3. CT cervical spine: Spondylotic changes in the lower cervical spine. No fracture. 4. CT brain: Left parietal scalp hematoma. Mild sinusitis. No acute intracranial abnormality. 5. CT chest abdomen pelvis: No sign of acute traumatic injury of the chest abdomen and pelvis. ASSESSMENT: 1. Trauma, status post fall down 20 stairs 2. Intractable mid to lower back pain 3. History of A. fib, on long-term anticoagulation with Eliquis PLAN: -Begin heart healthy diet -Pain control -Hold Eliquis -Consult Dr. Evangelista for medical management -Consult Dr. Dumont for severe mid to lower back pain Nurse practitioner note has been reviewed by physician. Signing provider agrees with the documented findings, assessment, and plan of care. Past Medical History Past Medical History: Dementia, GERD/Reflux, Hyperlipidemia, Hypertension, Memory Impairment, Prostate Disorder Additional Past Medical History / Comment(s): macular degeneration RT EYE MACULAR HOLE-HAD SX), "PAST ULCER", ALZHIEMERS,PAST KIDNEY STONES History of Any Multi-Drug Resistant Organisms: MRSA Date of last positivie culture/infection: 11/26/17 MDRO Source:: TOE Past Surgical History: Cholecystectomy, Hernia Repair Additional Past Surgical History / Comment(s): LT CATARACTS, RT EYE SX FOR MACULAR HOLE, MARLON FOOT SX 4-5 TH TOES BONE SX, LT KNEE SX ON CARTILAGE, LT SHOULDER BONE SOUR, LT ARM ORIF-PLATE, UNBILICAL HERNIA Past Anesthesia/Blood Transfusion Reactions: No Reported Reaction Past Psychological History: No Psychological Hx Reported Additional Psychological History / Comment(s): PT LIVES WITH AND 2 KIDS. P ETS: 2 BIRDS, 2 CATS. PT IS INDEPENDANT. NO HOME CARE SERVICES. NO MEDICAL EQUIPMENT. NO PAST SERVICE. 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 Smoking Status: Never smoker Past Alcohol Use History: None Reported Past Drug Use History: None Reported - Past Family History Mother Family Medical History: Cancer Additional Family Medical History / Comment(s): LEUKEMIA Father Additional Family Medical History / Comment(s): CEREBRAL ANEURYSM Medications and Allergies Home Medications Medication Instructions Recorded Confirmed Type Atenolol [Tenormin] 25 mg PO BID 05/29/17 09/02/19 History Simvastatin [Zocor] 40 mg PO HS 05/29/17 09/02/19 History Vits A,C,E/Lutein/Minerals 1 tab PO DAILY 05/29/17 09/02/19 History [Ocuvite with Lutein Tablet] Apixaban [Eliquis] 5 mg PO BID tab 06/02/17 09/02/19 Rx Furosemide [Lasix] 20 mg PO Q48H 09/02/19 09/02/19 History Isosorbide Mononitrate ER [Imdur] 30 mg PO DAILY 09/02/19 09/02/19 History Allergies Allergy/AdvReac Type Severity Reaction Status Date / Time No Known Allergies Allergy Verified 09/02/19 08:24 Surgical - Exam Vital Signs Temp Pulse Resp BP Pulse Ox 97.8 F 99 20 128/87 93 L 09/02/19 01:55 09/02/19 01:55 09/02/19 01:55 09/02/19 01:55 09/02/19 01:55 Results - Labs 09/02/19 02:10 09/02/19 02:10 Abnormal Lab Results - Last 24 Hours (Table) 09/02/19 09/02/19 Range/Units 02:10 02:10 WBC 15.9 H (3.8-10.6) k/uL Neutrophils # 12.8 H (1.3-7.7) k/uL BUN 23 H (9-20) mg/dL Glucose 137 H (74-99) mg/dL Diabetes panel 09/02/19 Range/Units 02:10 Sodium 141 (137-145) mmol/L Potassium 3.8 (3.5-5.1) mmol/L Chloride 104 (98-107) mmol/L Carbon Dioxide 29 (22-30) mmol/L BUN 23 H (9-20) mg/dL Creatinine 1.08 (0.66-1.25) mg/dL Glucose 137 H (74-99) mg/dL Calcium 9.5 (8.4-10.2) mg/dL AST 38 (17-59) U/L ALT 34 (4-49) U/L Alkaline Phosphatase 92 (38-126) U/L Total Protein 7.4 (6.3-8.2) g/dL Albumin 4.4 (3.5-5.0) g/dL Calcium panel 09/02/19 Range/Units 02:10 Calcium 9.5 (8.4-10.2) mg/dL Albumin 4.4 (3.5-5.0) g/dL Pituitary panel 09/02/19 Range/Units 02:10 Sodium 141 (137-145) mmol/L Potassium 3.8 (3.5-5.1) mmol/L Chloride 104 (98-107) mmol/L Carbon Dioxide 29 (22-30) mmol/L BUN 23 H (9-20) mg/dL Creatinine 1.08 (0.66-1.25) mg/dL Glucose 137 H (74-99) mg/dL Calcium 9.5 (8.4-10.2) mg/dL Adrenal panel 09/02/19 Range/Units 02:10 Sodium 141 (137-145) mmol/L Potassium 3.8 (3.5-5.1) mmol/L Chloride 104 (98-107) mmol/L Carbon Dioxide 29 (22-30) mmol/L BUN 23 H (9-20) mg/dL Creatinine 1.08 (0.66-1.25) mg/dL Glucose 137 H (74-99) mg/dL Calcium 9.5 (8.4-10.2) mg/dL Total Bilirubin 0.8 (0.2-1.3) mg/dL AST 38 (17-59) U/L ALT 34 (4-49) U/L Alkaline Phosphatase 92 (38-126) U/L Total Protein 7.4 (6.3-8.2) g/dL Albumin 4.4 (3.5-5.0) g/dL <Teddy Olson - Last Filed: 09/02/19 19:57> History of Present Illness As above. Patient with ongoing back discomfort. Repeat x-rays did show an L2 compression fracture. Otherwise has no significant complaints. Continue hold anticoagulation for now. New diet as tolerated. Likely discharge tomorrow once cleared by orthospine. Home analgesics per orthopedics Surgical - Exam Vital Signs Temp Pulse Resp BP Pulse Ox 97.8 F 99 20 128/87 93 L 09/02/19 01:55 09/02/19 01:55 09/02/19 01:55 09/02/19 01:55 09/02/19 01:55 Results - Labs 09/02/19 02:10 09/02/19 02:10 Abnormal Lab Results - Last 24 Hours (Table) 09/02/19 09/02/19 09/02/19 Range/Units 02:10 02:10 12:20 WBC 15.9 H (3.8-10.6) k/uL Neutrophils # 12.8 H (1.3-7.7) k/uL BUN 23 H (9-20) mg/dL Glucose 137 H (74-99) mg/dL Urine Opiates Screen Detected H (NotDetected) Diabetes panel 09/02/19 Range/Units 02:10 Sodium 141 (137-145) mmol/L Potassium 3.8 (3.5-5.1) mmol/L Chloride 104 (98-107) mmol/L Carbon Dioxide 29 (22-30) mmol/L BUN 23 H (9-20) mg/dL Creatinine 1.08 (0.66-1.25) mg/dL Glucose 137 H (74-99) mg/dL Calcium 9.5 (8.4-10.2) mg/dL AST 38 (17-59) U/L ALT 34 (4-49) U/L Alkaline Phosphatase 92 (38-126) U/L Total Protein 7.4 (6.3-8.2) g/dL Albumin 4.4 (3.5-5.0) g/dL Calcium panel 09/02/19 Range/Units 02:10 Calcium 9.5 (8.4-10.2) mg/dL Albumin 4.4 (3.5-5.0) g/dL Pituitary panel 09/02/19 Range/Units 02:10 Sodium 141 (137-145) mmol/L Potassium 3.8 (3.5-5.1) mmol/L Chloride 104 (98-107) mmol/L Carbon Dioxide 29 (22-30) mmol/L BUN 23 H (9-20) mg/dL Creatinine 1.08 (0.66-1.25) mg/dL Glucose 137 H (74-99) mg/dL Calcium 9.5 (8.4-10.2) mg/dL Adrenal panel 09/02/19 Range/Units 02:10 Sodium 141 (137-145) mmol/L Potassium 3.8 (3.5-5.1) mmol/L Chloride 104 (98-107) mmol/L Carbon Dioxide 29 (22-30) mmol/L BUN 23 H (9-20) mg/dL Creatinine 1.08 (0.66-1.25) mg/dL Glucose 137 H (74-99) mg/dL Calcium 9.5 (8.4-10.2) mg/dL Total Bilirubin 0.8 (0.2-1.3) mg/dL AST 38 (17-59) U/L ALT 34 (4-49) U/L Alkaline Phosphatase 92 (38-126) U/L Total Protein 7.4 (6.3-8.2) g/dL Albumin 4.4 (3.5-5.0) g/dL
[2019-09-02 13:13] LABS: Appearance,Urine Clear (Clear); Bilirubin,Urine Negative (Negative); Blood,Urine Negative (Negative); Color,Urine Yellow; Glucose,Urine (UA) Negative (Negative); Ketones,Urine Negative (Negative); Leukocyte Esterase,Urine Negative (Negative); Nitrite,Urine Negative (Negative); PH, Urine 5.5 (5.0-8.0); Protein,Urine Negative (Negative); Specific Gravity,Urine 1.035 (1.001-1.035); Urobilinogen,Urine <2.0 mg/dL (<2.0)
[2019-09-02 13:24] LABS: Amphetamine Screen,Urine Not Detected (NotDetected); Barbiturate Screen,Urine Not Detected (NotDetected); Benzodiazepines Screen,Urine Not Detected (NotDetected); Cocaine Screen,Urine Not Detected (NotDetected); Methadone Screen, Urine Not Detected (NotDetected); Opiate Screen,Urine Detected (NotDetected); Oxycodone Screen, Urine Not Detected (NotDetected); Phencyclidine Screen,Urine Not Detected (NotDetected); Tricyclic Antidepressant,Urine Not Detected (NotDetected); Urn Cannabinoid Scrn Not Detected (NotDetected)
--- NOTE | 2019-09-02 13:32 | P.CONS ---
History of Present Illness - Reason for Consult Consult date: 09/02/19 Medical management Requesting physician: Teddy Olson - Chief Complaint Fall with back pain - History of Present Illness This is a 67-year-old male patient who presented to the ER after falling down approximately 20 steps at home. Patient reports he woke up hemoglobin 90 having to go to the bathroom and reports that he turned the wrong way and fell down the steps. patient reports that his mid to lower back was hurting right after the fall and he was brought into ER for further evaluation. Patient does have an underlying history of Alzheimer's, atrial fibrillation maintained on eliquis. Additional medical history includes GERD, hyperlipidemia, hypertension, prostate disorder, macular degeneration and cholecystectomy. Patient states he lives at home with his and 2 children. Chest x-ray completed showing no active cardiopulmonary disease no pneumothorax no change. Normal heart. Pelvic x-ray completed showing normal pelvis. CT of cervical spine completed showing spondylitic changes in the lower cervical spine. No fracture. Sinusitis. CT of head completed showing left parietal scalp hematoma mild sinusitis no acute intracranial abnormality. CT of chest abdomen and pelvis completed showing no sign of acute Traumatic injury of the chest abdomen and pelvis. There is subcutaneous density of the left iliac bone and left buttock consistent with subcutaneous hematoma and bruising. At this time Dr. Dumont has been consulted for back pain. Eliquis on hold due to hematoma. White blood cell count elevated at 15.9 will order urinary analysis to rule out infection. Patient denies any chest pain or shortness of breath. Patient denies any episodes of loss of consciousness prior to fall. Patient denies any recent illness. Patient denies nausea vomiting or diarrhea. Patient denies any urinary burning or frequency. Review of Systems Please refer to HPI otherwise unremarkable Past Medical History Past Medical History: Dementia, GERD/Reflux, Hyperlipidemia, Hypertension, Memory Impairment, Prostate Disorder Additional Past Medical History / Comment(s): macular degeneration RT EYE MACULAR HOLE-HAD SX), "PAST ULCER", ALZHIEMERS,PAST KIDNEY STONES History of Any Multi-Drug Resistant Organisms: MRSA Year Discovered:: 11/26/17 MDRO Source:: TOE Past Surgical History: Cholecystectomy, Hernia Repair Additional Past Surgical History / Comment(s): LT CATARACTS, RT EYE SX FOR MACULAR HOLE, MARLON FOOT SX 4-5 TH TOES BONE SX, LT KNEE SX ON CARTILAGE, LT SHOULDER BONE SOUR, LT ARM ORIF-PLATE, UNBILICAL HERNIA Past Anesthesia/Blood Transfusion Reactions: No Reported Reaction Past Psychological History: No Psychological Hx Reported Additional Psychological History / Comment(s): PT LIVES WITH AND 2 KIDS. PETS: 2 BIRDS, 2 CATS. PT IS INDEPENDANT. NO HOME CARE SERVICES. NO MEDICAL EQUIPMENT. NO PAST SERVICE. 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 smoker Past Alcohol Use History: None Reported Past Drug Use History: None Reported - Past Family History Mother Family Medical History: Cancer Additional Family Medical History / Comment(s): LEUKEMIA Father Additional Family Medical History / Comment(s): CEREBRAL ANEURYSM Medications and Allergies Home Medications Medication Instructions Recorded Confirmed Type Atenolol [Tenormin] 25 mg PO BID 05/29/17 09/02/19 History Simvastatin [Zocor] 40 mg PO HS 05/29/17 09/02/19 History Vits A,C,E/Lutein/Minerals 1 tab PO DAILY 05/29/17 09/02/19 History [Ocuvite with Lutein Tablet] Apixaban [Eliquis] 5 mg PO BID tab 06/02/17 09/02/19 Rx Furosemide [Lasix] 20 mg PO Q48H 09/02/19 09/02/19 History Isosorbide Mononitrate ER [Imdur] 30 mg PO DAILY 09/02/19 09/02/19 History Allergies Allergy/AdvReac Type Severity Reaction Status Date / Time No Known Allergies Allergy Verified 09/02/19 08:24 Physical Exam Vitals: Vital Signs Temp Pulse Resp BP Pulse Ox 09/02/19 06:00 98 22 118/94 97 09/02/19 05:00 96 10 L 132/101 98 09/02/19 04:00 98 21 121/80 97 09/02/19 03:00 116 H 18 132/90 90 L 09/02/19 02:05 70 L 09/02/19 01:55 97.8 F 99 20 128/87 93 L Intake and Output 09/01/19 09/02/19 09/02/19 22:59 06:59 14:59 Other: Voiding Method Urinal # Voids 1 Weight 97.522 kg 97.522 kg Head normocephalic Neck supple Lungs clear to auscultation bilaterally no wheezing or crackles Heart regular rate and rhythm S1-S2, no rub or gallop Abdomen is soft nontender nondistended positive bowel sounds no hepatosplenomegaly Extremities no edema Neuro alert and orientated to 3. Patient does have history of dementia Results CBC & Chem 7: 09/02/19 02:10 09/02/19 02:10 Labs: Abnormal Lab Results - Last 24 Hours (Table) 09/02/19 09/02/19 Range/Units 02:10 02:10 WBC 15.9 H (3.8-10.6) k/uL Neutrophils # 12.8 H (1.3-7.7) k/uL BUN 23 H (9-20) mg/dL Glucose 137 H (74-99) mg/dL Assessment and Plan Assessment: 1. Status post fall with back pain. Chest x-ray completed showing no active cardiopulmonary disease no pneumothorax no change. Normal heart. Pelvic x-ray completed showing normal pelvis. CT of cervical spine completed showing spondylitic changes in the lower cervical spine. No fracture. Sinusitis. CT of head completed showing left parietal scalp hematoma mild sinusitis no acute intracranial abnormality. CT of chest abdomen and pelvis completed showing no sign of acute Traumatic injury of the chest abdomen and pelvis. There is subcutaneous density of the left iliac bone and left buttock consistent with subcutaneous hematoma and bruising. Dr. Dumont consulted for lower back pain. Patient has been admitted to Dr. arzate under trauma services 2. History of atrial fibrillation maintained on eliquis. Eliquis currently on hold due to fall with hematoma. 3. Leukocytosis likely secondary to sinusitis seen on head CT. Elevated blood blood cell count 15.9. Chest x-ray negative. Will order urinary analysis to rule out infection. patient will be started on Rocephin. 4. History of Alzheimer's 5. History of GERD 6. History of hyperlipidemia. Maintained on statin 7. History of macular degeneration 8. History of cholecystectomy 9. History of essential hypertension DVT prophylaxis SCDs. GI prophylaxis Pepcid PT OT and medical social worker consult for discharge planning Dr. Dumont has been consulted for back pain per surgical services IV Rocephin for sinusitis Thank you for this consultation we'll continue to follow patient closely throughout stay Time with Patient: Greater than 30 (Greater than 60% of the total time spent in counseling and coordination of care. I performed an examination of the patient and discussed their management with the Nurse Practitioner. I have reviewed the Nurse Practitioner's notes and agree with the documented findings and plan of care)
--- NOTE | 2019-09-02 18:10 | XR ---
EXAMINATION TYPE: XR lumbar spine 2 or 3V DATE OF EXAM: 09/02/2019 COMPARISON: CT scan today HISTORY: Back pain. Fall. TECHNIQUE: 3 views FINDINGS: There is a mild lumbar levoscoliosis. There is anterior wedging of L2 vertebra with 15% los s of height. There is depression of the superior endplate. This is a change compared to exam earlier today. Abdominal aorta is atheromatous. Posterior elements are intact. Sacroiliac joints are intact. IMPRESSION: Acute compression fracture of L2 vertebra.
[2019-09-02] MEDS: KETOROLAC 30 MG/ML 1 ML VIAL IVP SCH (20:40)
[2019-09-02] MEDS: ATORVASTATIN 20 MG TAB PO SCH (22:11)
[2019-09-02] MEDS: TAMSULOSIN 0.4 MG CAP.ER.24H PO SCH (22:11)
[2019-09-02] MEDS: FINASTERIDE 5 MG TAB PO SCH (22:11)
[2019-09-02 22:20] LABS: Glucose,Whole Blood 142 mg/dL (75-99)
[2019-09-03] MEDS: KETOROLAC 30 MG/ML 1 ML VIAL IVP SCH ×4 (00:31→17:37)
[2019-09-03] MEDS: SODIUM CHLORIDE 0.9% 1,000 ML IV SCH ×2 (00:41→22:32)
[2019-09-03 08:24] LABS: Basophils % (A) 0 %; Eosinophils # (A) 0.3 k/uL (0-0.7); Eosinophils % (A) 3 %; HCT 35.6 % (39.0-53.0); HGB 12.2 gm/dL (13.0-17.5); Lymphocytes # (A) 1.7 k/uL (1.0-4.8); Lymphocytes % (A) 17 %; MCH 33.4 pg (25.0-35.0); MCHC 34.4 g/dL (31.0-37.0); MCV 97.1 fL (80.0-100.0); Mean Platelet Volume 10.1; Monocytes # (A) 0.5 k/uL (0-1.0); Monocytes % (A) 5 %; Neutrophils # (A) 7.3 k/uL (1.3-7.7); Neutrophils % (A) 73 %; Platelet Count 142 k/uL (150-450); RBC 3.66 m/uL (4.30-5.90); RDW 12.8 % (11.5-15.5); WBC 9.9 k/uL (3.8-10.6)
[2019-09-03 08:29] LABS: ALT 23 U/L (4-49); AST 27 U/L (17-59); African American GFR (CKD) >90 (>60 ml/min/1.73 sqM); Albumin 3.4 g/dL (3.5-5.0); Alkaline Phosphatase 55 U/L (38-126); Anion Gap 5 mmol/L; Blood Urea Nitrogen 21 mg/dL (9-20); Calcium 8.8 mg/dL (8.4-10.2); Carbon Dioxide 28 mmol/L (22-30); Chloride 105 mmol/L (98-107); Glucose 127 mg/dL (74-99); Non-African American GFR(CKD) >90 (>60 ml/min/1.73 sqM); Potassium 4.1 mmol/L (3.5-5.1); Sodium 138 mmol/L (137-145); Total Bilirubin 1.2 mg/dL (0.2-1.3)
[2019-09-03] MEDS: FUROSEMIDE 20 MG TAB PO SCH (09:03)
[2019-09-03] MEDS: ISOSORBIDE MONONITRATE ER 30 MG TAB.ER.24H PO SCH (09:03)
[2019-09-03] MEDS: FAMOTIDINE 20 MG TAB PO SCH (09:03)
[2019-09-03] MEDS: ATENOLOL 25 MG TAB PO SCH ×2 (09:03→20:34)
[2019-09-03] MEDS: HYDROcodone/APAP 7.5-325MG 1 EACH TAB PO PRN (09:43)
--- NOTE | 2019-09-03 11:48 | P.PN ---
Progress Note - Text Progress Note Date: 09/03/19 the patient is resting in his bed. He still states he has significant back pain. He has not been out of bed yet. On exam his vital signs are stable. Abdomen soft with no significant tenderness. Status post trauma with fall down stairs. Patient states that her back pain. He will be ambulated today with assistance.
--- NOTE | 2019-09-03 13:45 | XR ---
EXAMINATION TYPE: XR ankle complete LT , 3 VIEWS DATE OF EXAM ORDERED: 09/03/2019 HISTORY: ankle pain swelling s/p fall. COMPARISON: None. FINDINGS: No fracture, dislocation or joint effusion is seen. There are prominent Achilles and plant ar calcaneal spurs. There is some calcification of the plantar fascial. IMPRESSION: NO ACUTE OSSEOUS LESION.
--- NOTE | 2019-09-03 14:49 | P.PN ---
Subjective Progress Note Date: 09/03/19 This is a 67-year-old male patient who presented to the ER after falling down approximately 20 steps at home. Patient reports he woke up hemoglobin 90 having to go to the bathroom and reports that he turned the wrong way and fell down the steps. patient reports that his mid to lower back was hurting right after the fall and he was brought into ER for further evaluation. Patient does have an underlying history of Alzheimer's, atrial fibrillation maintained on eliquis. Additional medical history includes GERD, hyperlipidemia, hypertension, prostate disorder, macular degeneration and cholecystectomy. Patient states he lives at home with his and 2 children. Chest x-ray completed showing no active cardiopulmonary disease no pneumothorax no change. Normal heart. Pelvic x-ray completed showing normal pelvis. CT of cervical spine completed showing spondylitic changes in the lower cervical spine. No fracture. Sinusitis. CT of head completed showing left parietal scalp hematoma mild sinusitis no acute intracranial abnormality. CT of chest abdomen and pelvis completed showing no s ign of acute Traumatic injury of the chest abdomen and pelvis. There is subcutaneous density of the left iliac bone and left buttock consistent with subcutaneous hematoma and bruising. At this time Dr. Dumont has been consulted for back pain. Eliquis on hold due to hematoma. White blood cell count elevated at 15.9 will order urinary analysis to rule out infection. Patient denies any chest pain or shortness of breath. Patient denies any episodes of loss of consciousness prior to fall. Patient denies any recent illness. Patient denies nausea vomiting or diarrhea. Patient denies any urinary burning or frequency. On 09/03/2019 patient was seen and examined on the medical floor he is alert and oriented 3 in no apparent distress he is still complaining of mid back pain otherwise no complaints there is no fever or chills no headache or dizziness no chest pain no shortness of breath no cough no nausea or vomiting no abdominal pain no diarrhea no burning was urination no frequency or urgency and no hematuria Objective - Vital Signs Vital signs: Vital Signs Temp 98.6 F 09/03/19 05:45 Pulse 84 09/03/19 05:45 Resp 20 09/03/19 05:45 BP 107/70 09/03/19 05:45 Pulse Ox 97 09/03/19 05:45 Intake & Output 09/02/19 09/03/19 09/03/19 18:59 06:59 18:59 Intake Total 800 Balance 800 Weight 97.522 kg Intake: IV 800 Sodium Chloride 0.9% 1, 800 000 ml @ 50 mls/hr IV . Q20H [facility] Rx#:[id number] Other: Voiding Method Urinal Urinal # Voids 1 225 - Exam Head normocephalic, there is a scalp hematoma on the left parietal area Neck supple no JVD no goiter Lungs clear to auscultation bilaterally no wheezing or crackles Heart regular rate and rhythm S1-S2, no rub or gallop Abdomen is soft nontender nondistended positive bowel sounds no hepatosplenomegaly Extremities no edema no cyanosis or clubbing Neuro alert and orientated to 3. Patient does have history of dementia, otherwise no acute gross focal neurological deficit - Labs CBC & Chem 7: 09/03/19 07:48 09/03/19 07:48 Labs: Abnormal Lab Results - Last 24 Hours (Table) 09/02/19 09/03/19 09/03/19 Range/Units 22:17 07:48 07:48 RBC 3.66 L (4.30-5.90) m/uL Hgb 12.2 L (13.0-17.5) gm/dL Hct 35.6 L (39.0-53.0) % Plt Count 142 L (150-450) k/uL BUN 21 H (9-20) mg/dL Glucose 127 H (74-99) mg/dL POC Glucose (mg/dL) 142 H (75-99) mg/dL Total Protein 6.0 L (6.3-8.2) g/dL Albumin 3.4 L (3.5-5.0) g/dL Assessment and Plan Plan: 1. Status post fall with back pain. Chest x-ray completed showing no active cardiopulmonary disease no pneumothorax no change. Normal heart. Pelvic x-ray completed showing normal pelvis. CT of cervical spine completed showing spondylitic changes in the lower cervical spine. No fracture. Sinusitis. CT of head completed showing left parietal scalp hematoma mild sinusitis no acute intracranial abnormality. CT of chest abdomen and pelvis completed showing no sign of acute Traumatic injury of the chest abdomen and pelvis. There is subcutaneous density of the left iliac bone and left buttock consistent with subcutaneous hematoma and bruising. Dr. Dumont consulted for lower back pain. Patient has been admitted to Dr. arzate under trauma services 2. History of atrial fibrillation maintained on eliquis. Eliquis currently on hold due to fall with hematoma. 3. Leukocytosis likely secondary to sinusitis seen on head CT. Elevated blood blood cell count 15.9. Chest x-ray negative. Will order urinary analysis to rule out infection. patient will be started on Rocephin. 4. History of Alzheimer's 5. History of GERD 6. History of hyperlipidemia. Maintained on statin 7. History of macular degeneration 8. History of cholecystectomy 9. History of essential hypertension DVT prophylaxis SCDs. GI prophylaxis Pepcid PT OT and social service coordinator consult for discharge planning Dr. Dumont has been consulted for back pain per surgical services IV Rocephin for sinusitis
--- NOTE | 2019-09-03 17:33 | P.CNOR ---
History of Present Illness - [facility] Consult date: 09/03/19 Consult reason: low back pain History of present illness: Patient is a pleasant 69 year old male seen at bedside this morning in consultation for low back pain. He is sitting up in chair comfortably. He was admitted through the ED yesterday after falling down several stairs early in the morning. He states it was dark and he tripped then fell. He developed immediate left low back pain. He is also complaining of left ankle pain and swelling today. He had work up in the ED including scans of the neck and abdomen/pelvis which were essentially negative for acute injury. He takes eloquis currently at home. He is denying radicular symptoms including numbness or tingling. He has no saddle anesthesia or loss of bowel bladder. He denies calf pain, fever, chills, chest pain, shortness of breath, dizziness, headaches, slurred speech, double vision, weakness or other. Review of Systems All systems: negative Constitutional: Denies chills, Denies fever Eyes: denies blurred vision, denies pain Ears, nose, mouth and throat: Denies headache, Denies sore throat Cardiovascular: Denies chest pain, Denies shortness of breath Respiratory: Denies cough Gastrointestinal: Denies abdominal pain, Denies diarrhea, Denies nausea, Denies vomiting Musculoskeletal: Denies myalgias Integumentary: Denies pruritus, Denies rash Neurological: Denies numbness, Denies weakness Psychiatric: Denies anxiety, Denies depression Endocrine: Denies fatigue, Denies weight change Past Medical History Past Medical History: Dementia, GERD/Reflux, Hyperlipidemia, Hypertension, Memory Impairment, Prostate Disorder Additional Past Medical History / Comment(s): macular degeneration RT EYE MACULAR HOLE-HAD SX), "PAST ULCER", ALZHIEMERS,PAST KIDNEY STONES History of Any Multi-Drug Resistant Organisms: MRSA Year Discovered:: 11/26/17 MDRO Source:: TOE Past Surgical History: Cholecystectomy, Hernia Repair Additional Past Surgical History / Comment(s): LT CATARACTS, RT EYE SX FOR MACULAR HOLE, MARLON FOOT SX 4-5 TH TOES BONE SX, LT KNEE SX ON CARTILAGE, LT SHOULDER BONE SOUR, LT ARM ORIF-PLATE, UNBILICAL HERNIA Past Anesthesia/Blood Transfusion Reactions: No Reported Reaction Past Psychological History: No Psychological Hx Reported Additional Psychological History / Comment(s): PT LIVES WITH AND 2 KIDS. PETS: 2 BIRDS, 2 CATS. PT IS INDEPENDANT. NO HOME CARE SERVICES. NO MEDICAL EQUIPMENT. NO PAST SERVICE. 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 Smoking Status: Never smoker Past Alcohol Use History: None Reported Past Drug Use History: None Reported - Past Family History Mother Family Medical History: Cancer Additional Family Medical History / Comment(s): LEUKEMIA Father Additional Family Medical History / Comment(s): CEREBRAL ANEURYSM Medications and Allergies Home Medications Medication Instructions Recorded Confirmed Type Atenolol [Tenormin] 25 mg PO BID 05/29/17 09/02/19 History Simvastatin [Zocor] 40 mg PO HS 05/29/17 09/02/19 History Vits A,C,E/Lutein/Minerals 1 tab PO DAILY 05/29/17 09/02/19 History [Ocuvite with Lutein Tablet] Apixaban [Eliquis] 5 mg PO BID tab 06/02/17 09/02/19 Rx Furosemide [Lasix] 20 mg PO Q48H 09/02/19 09/02/19 History Isosorbide Mononitrate ER [Imdur] 30 mg PO DAILY 09/02/19 09/02/19 History Allergies Allergy/AdvReac Type Severity Reaction Status Date / Time No Known Allergies Allergy Verified 09/02/19 08:24 Physical Examination Inspection of the back and spine reveals no deformity or wounds. There is an ecchymotic area at the left lower lumbar area. It is mildly tender to touch. It is not hot and there is no fluctuance. There is no tenderness midline and no stepoff Lower extremities: There is no deformity. L2-S1 myotomes are 5/5 bilaterally. L2-S1 dermatomes are intact to light touch equal bilaterally. Reflexes are 1+ equally at knee jerks and ankle jerks. Negative Babinski and clonus. Negative straight leg raises. Calves are SNT. There is mild swelling at the left ankle. No erythema. It is tender at the lateral aspect of the ankle and foot. There is pain with passive dorsiflexion to 30 degrees. The ankle is ligamentously stable. 2+ DP pulse and less than 2 sec cap refill is present Results Xrays of the Lumbar spine show a mild wedge compression fracture of the L2 vertebral body. There is multilevel spondylosis/degenerative changes. There is a mild scoliotic curve which may be reactive. CT of the abdomen shows no retropulsion of the L2 vertebral body or significant bony canal stenosis otherwise - Labs Labs: Abnormal Lab Results - Last 24 Hours (Table) 09/02/19 09/03/19 09/03/19 Range/Units 22:17 07:48 07:48 RBC 3.66 L (4.30-5.90) m/uL Hgb 12.2 L (13.0-17.5) gm/dL Hct 35.6 L (39.0-53.0) % Plt Count 142 L (150-450) k/uL BUN 21 H (9-20) mg/dL Glucose 127 H (74-99) mg/dL POC Glucose (mg/dL) 142 H (75-99) mg/dL Total Protein 6.0 L (6.3-8.2) g/dL Albumin 3.4 L (3.5-5.0) g/dL H & H 09/02/19 09/03/19 Range/Units 02:10 07:48 Hgb 15.1 12.2 L (13.0-17.5) gm/dL Hct 44.5 35.6 L (39.0-53.0) % Coagulation 09/02/19 Range/Units 02:10 INR 1.0 (<1.2) Result Diagrams: 09/03/19 07:48 09/03/19 07:48 - Diagnostic results Lumbar AP/lateral x-ray with flexion/extension views: report reviewed, image reviewed Assessment and Plan (1) Lumbar compression fracture Narrative/Plan: Patient has a contusion and likely hematoma in the left lower lumbo-sacral paraspinal area along with a mild L2 compression fracture without neural compromise. Recommend local supportive measures including heat/ice prn for comfort, continued pain management per primary team, and a TLSO when up out of bed. The TLSO is being ordered and delivered to patient room per case management. Regarding his left ankle, I have ordered xrays and recommend ice and elevation. Will make further recommendations pending his clinical course and results. Current Visit: Yes Status: Acute Priority: Medium Code(s): S32.000A - WEDGE COMPRESSION FRACTURE OF UNSP LUMBAR VERTEBRA, INIT SNOMED Code(s): 680283440 Time with Patient: Greater than 30
[2019-09-03] MEDS: ATORVASTATIN 20 MG TAB PO SCH (20:34)
[2019-09-03] MEDS: TAMSULOSIN 0.4 MG CAP.ER.24H PO SCH (20:34)
[2019-09-03] MEDS: FINASTERIDE 5 MG TAB PO SCH (20:34)
[2019-09-03] MEDS: HYDROmorphone 1 MG/ML 1 ML SYRINGE IVP PRN (20:36)
[2019-09-04] MEDS: KETOROLAC 30 MG/ML 1 ML VIAL IVP SCH ×3 (00:16→11:35)
[2019-09-04 07:31] LABS: Basophils # (A) 0.1 k/uL (0-0.2); Basophils % (A) 1 %; Eosinophils # (A) 0.5 k/uL (0-0.7); Eosinophils % (A) 6 %; HCT 36.1 % (39.0-53.0); HGB 12.4 gm/dL (13.0-17.5); Lymphocytes # (A) 1.8 k/uL (1.0-4.8); Lymphocytes % (A) 18 %; MCH 33.2 pg (25.0-35.0); MCHC 34.5 g/dL (31.0-37.0); MCV 96.3 fL (80.0-100.0); Monocytes # (A) 0.7 k/uL (0-1.0); Monocytes % (A) 7 %; Neutrophils # (A) 6.5 k/uL (1.3-7.7); Neutrophils % (A) 67 %; Platelet Count 129 k/uL (150-450); RBC 3.74 m/uL (4.30-5.90); RDW 12.6 % (11.5-15.5); WBC 9.7 k/uL (3.8-10.6)
[2019-09-04 07:43] LABS: ALT 24 U/L (4-49); AST 36 U/L (17-59); African American GFR (CKD) >90 (>60 ml/min/1.73 sqM); Albumin 3.7 g/dL (3.5-5.0); Alkaline Phosphatase 63 U/L (38-126); Anion Gap 7 mmol/L; Blood Urea Nitrogen 23 mg/dL (9-20); Calcium 8.9 mg/dL (8.4-10.2); Carbon Dioxide 27 mmol/L (22-30); Chloride 105 mmol/L (98-107); Glucose 94 mg/dL (74-99); Non-African American GFR(CKD) 89 (>60 ml/min/1.73 sqM); Potassium 4.3 mmol/L (3.5-5.1); Sodium 139 mmol/L (137-145); Total Bilirubin 1.1 mg/dL (0.2-1.3); Total Protein 6.5 g/dL (6.3-8.2)
[2019-09-04] MEDS: ISOSORBIDE MONONITRATE ER 30 MG TAB.ER.24H PO SCH (08:43)
[2019-09-04] MEDS: FAMOTIDINE 20 MG TAB PO SCH (08:43)
[2019-09-04] MEDS: ATENOLOL 25 MG TAB PO SCH ×2 (08:43→21:51)
--- NOTE | 2019-09-04 11:35 | P.PN ---
Subjective Progress Note Date: 09/04/19 This is a 67-year-old male patient who presented to the ER after falling down approximately 20 steps at home. Patient reports he woke up hemoglobin 90 having to go to the bathroom and reports that he turned the wrong way and fell down the steps. patient reports that his mid to lower back was hurting right after the fall and he was brought into ER for further evaluation. Patient does have an underlying history of Alzheimer's, atrial fibrillation maintained on eliquis. Additional medical history includes GERD, hyperlipidemia, hypertension, prostate disorder, macular degeneration and cholecystectomy. Patient states he lives at home with his and 2 children. Chest x-ray completed showing no active cardiopulmonary disease no pneumothorax no change. Normal heart. Pelvic x-ray completed showing normal pelvis. CT of cervical spine completed showing spondylitic changes in the lower cervical spine. No fracture. Sinusitis. CT of head completed showing left parietal scalp hematoma mild sinusitis no acute intracranial abnormality. CT of chest abdomen and pelvis completed showing no s ign of acute Traumatic injury of the chest abdomen and pelvis. There is subcutaneous density of the left iliac bone and left buttock consistent with subcutaneous hematoma and bruising. At this time Dr. Dumont has been consulted for back pain. Eliquis on hold due to hematoma. White blood cell count elevated at 15.9 will order urinary analysis to rule out infection. Patient denies any chest pain or shortness of breath. Patient denies any episodes of loss of consciousness prior to fall. Patient denies any recent illness. Patient denies nausea vomiting or diarrhea. Patient denies any urinary burning or frequency. On 09/03/2019 patient was seen and examined on the medical floor he is alert and oriented 3 in no apparent distress he is still complaining of mid back pain otherwise no complaints there is no fever or chills no headache or dizziness no chest pain no shortness of breath no cough no nausea or vomiting no abdominal pain no diarrhea no burning was urination no frequency or urgency and no hematuria On 09/04/2019 patient was seen and examined on the medical floor he is alert and oriented 3 in no apparent distress he is complaining of left sided mid to lower back pain otherwise he denies any complaints there is no fever or chills no headache or dizziness no chest pain no shortness of breath no cough no nausea or vomiting no abdominal pain no diarrhea and no urinary symptoms Objective - Vital Signs Vital signs: Vital Signs Temp 98.0 F 12/22/19 07:00 Pulse 90 09/04/19 07:00 Resp 18 09/04/19 07:00 BP 126/76 09/04/19 07:00 Pulse Ox 97 09/04/19 07:00 Intake & Output 09/03/19 09/04/19 09/04/19 18:59 06:59 18:59 Intake Total 1200 400 Output Total 200 Balance 1200 -200 400 Intake: IV 800 Sodium Chloride 0.9% 1, 800 000 ml @ 50 mls/hr IV . Q20H [facility] Rx#:[id number] Oral 400 400 Output: Urine 200 Other: Voiding Method Urinal Urinal # Voids 250 - Exam Head normocephalic, there is a scalp hematoma on the left parietal area Neck supple no JVD no goiter Lungs clear to auscultation bilaterally no wheezing or crackles Heart regular rate and rhythm S1-S2, no rub or gallop Abdomen is soft nontender nondistended positive bowel sounds no hepatosplenomegaly Extremities no edema no cyanosis or clubbing Neuro alert and orientated to 3. Patient does have history of dementia, otherwise no acute gross focal neurological deficit - Labs CBC & Chem 7: 09/04/19 06:54 09/04/19 06:54 Labs: Abnormal Lab Results - Last 24 Hours (Table) 09/04/19 09/04/19 Range/Units 06:54 06:54 RBC 3.74 L (4.30-5.90) m/uL Hgb 12.4 L (13.0-17.5) gm/dL Hct 36.1 L (39.0-53.0) % Plt Count 129 L (150-450) k/uL BUN 23 H (9-20) mg/dL Assessment and Plan Plan: 1. Status post fall with back pain. Chest x-ray completed showing no active cardiopulmonary disease no pneumothorax no change. Normal heart. Pelvic x-ray completed showing normal pelvis. CT of cervical spine completed showing spondylitic changes in the lower cervical spine. No fracture. Sinusitis. CT of head completed showing left parietal scalp hematoma mild sinusitis no acute intracranial abnormality. CT of chest abdomen and pelvis completed showing no sign of acute Traumatic injury of the chest abdomen and pelvis. There is subcutaneous density of the left iliac bone and left buttock consistent with subcutaneous hematoma and bruising. Dr. Dumont consulted for lower back pain. Patient has been admitted to Dr. arzate under trauma services 2. History of atrial fibrillation maintained on eliquis. Eliquis currently on hold due to fall with hematoma. 3. Leukocytosis likely secondary to sinusitis seen on head CT. Elevated blood blood cell count 15.9. Chest x-ray negative. Will order urinary analysis to rule out infection. patient will be started on Rocephin. 4. History of Alzheimer's 5. History of GERD 6. History of hyperlipidemia. Maintained on statin 7. History of macular degeneration 8. History of cholecystectomy 9. History of essential hypertension DVT prophylaxis SCDs. GI prophylaxis Pepcid PT OT and social media senior associate consult for discharge planning Dr. Dumont has been consulted for back pain per surgical services At this time patient is still off Eliquis, will discuss with surgery tomorrow timing of restarting anticoagulation for atrial fibrillation IV Rocephin for sinusitis
--- NOTE | 2019-09-04 12:21 | P.PN ---
Subjective Progress Note Date: 09/04/19 Principal diagnosis: mild L2 compression fracture, left lower lumbar sacral paraspinal contusion/hematoma, left ankle sprain patient is a pleasant 69-year-old male seen at bedside this morning. We saw him yesterday in consultation for his low back pain after suffering a fall down several stairs. X-rays of the lumbar spine showed mild L2 vertebral body compression fracture without retropulsion. Exam also revealed the has hematoma/contusion the left lower lumbar sacral paraspinal area. This was likely exacerbated due eloquis. He is also complaining of left ankle pain yes terday. Who ordered x-rays of the left ankle and advised on elevation as well as ice. An LSO brace was ordered and he has been using well out of bed regarding his L2 compression fracture. His pain is stable today or improved. He denies new complaints including lower extremity radicular type symptoms, numbness or tingling. His left ankle pain is improved and he is able to weight- bear without difficulty. Objective - Vital Signs Vital signs: Vital Signs Temp 98.0 F 09/04/19 07:00 Pulse 90 09/04/19 07:00 Resp 18 09/04/19 07:00 BP 126/76 09/04/19 07:00 Pulse Ox 97 09/04/19 07:00 Intake & Output 09/03/19 09/04/19 09/04/19 18:59 06:59 18:59 Intake Total 1200 400 Output Total 200 Balance 1200 -200 400 Intake: IV 800 Sodium Chloride 0.9% 1, 800 000 ml @ 50 mls/hr IV . Q20H [facility] Rx#:[id number] Oral 400 400 Output: Urine 200 Other: Voiding Method Urinal Urinal # Voids 250 - Exam inspection of the back in the lumbar spine shows no deformity or step-off. There is a resolving ecchymoses in the left lower lumbar paraspinal area. It is mildly tender to touch. There is no excessive warmth or fluctuance. There is no tenderness midline. Lower extremities: L2 through S1 myotomes are 5 out of 5 bilaterally as well as dermatomes L2 through S1 are intact to light touch equal bilaterally. Calves are soft nontender. He has minimal pain with range of motion of the left ankle which is full. There is improved swelling. Ankle is ligamentously stable. 2+ dorsalis pedis pulse and less than 2 second capillary refill is present. - Constitutional General appearance: Present: no acute distress - Labs CBC & Chem 7: 09/04/19 06:54 09/04/19 06:54 Labs: Abnormal Lab Results - Last 24 Hours (Table) 09/04/19 09/04/19 Range/Units 06:54 06:54 RBC 3.74 L (4.30-5.90) m/uL Hgb 12.4 L (13.0-17.5) gm/dL Hct 36.1 L (39.0-53.0) % Plt Count 129 L (150-450) k/uL BUN 23 H (9-20) mg/dL - Imaging and Cardiology x-rays of the left ankle show no acute fracture or dislocation. There is chronic degenerative changes seen throughout the ankle and foot. Assessment and Plan (1) Lumbar compression fracture Narrative/Plan: Recommend continued planning care where patient has a contusion and likely hematoma in the left lower lumbo-sacral paraspinal area along with a mild L2 compression fracture without neural compromise. Continue local supportive measures including heat/ice prn for comfort, continued pain management per primary team, and a LSO when up out of bed. His ankle is improved and negative for fracture. He's able to weight-bear without difficulty. Recommended continued ice, elevation when necessary. He may be discharged from an orthopedic standpoint and follow-up as an outpatient with Dr. Dumont regarding his lumbar spine. Current Visit: Yes Status: Acute Priority: Medium Code(s): S32.000A - WEDGE COMPRESSION FRACTURE OF UNSP LUMBAR VERTEBRA, INIT SNOMED Code(s): 808531266 Time with Patient: Less than 30
[2019-09-04] MEDS: HYDROcodone/APAP 7.5-325MG 1 EACH TAB PO PRN ×2 (12:54→20:08)
--- NOTE | 2019-09-04 14:53 | P.PN ---
Progress Note - Text Progress Note Date: 09/04/19 the patient is resting in his bed. He still has complaints of significant back pain. On exam his vital signs are stable. His abdomen soft. Back pain status post traumatic fall down stairs. Patient was placed on norco 5. He will continue to have supportive care.
[2019-09-04] MEDS: SODIUM CHLORIDE 0.9% 1,000 ML IV SCH (18:01)
[2019-09-04] MEDS: TAMSULOSIN 0.4 MG CAP.ER.24H PO SCH (21:51)
[2019-09-04] MEDS: FINASTERIDE 5 MG TAB PO SCH (21:51)
[2019-09-04] MEDS: DOCUSATE 100 MG CAP PO SCH (21:51)
[2019-09-04] MEDS: ATORVASTATIN 20 MG TAB PO SCH (21:51)
[2019-09-04] MEDS: APIXABAN 5 MG TAB PO SCH (21:51)
[2019-09-05] MEDS: HYDROmorphone 1 MG/ML 1 ML SYRINGE IVP PRN (01:53)
[2019-09-05] MEDS: APIXABAN 5 MG TAB PO SCH ×2 (08:31→21:13)
[2019-09-05] MEDS: FUROSEMIDE 20 MG TAB PO SCH (08:31)
[2019-09-05] MEDS: ISOSORBIDE MONONITRATE ER 30 MG TAB.ER.24H PO SCH (08:31)
[2019-09-05] MEDS: FAMOTIDINE 20 MG TAB PO SCH (08:31)
[2019-09-05] MEDS: ATENOLOL 25 MG TAB PO SCH ×2 (08:31→21:13)
[2019-09-05] MEDS: DOCUSATE 100 MG CAP PO SCH ×2 (08:31→21:13)
[2019-09-05 08:51] LABS: Basophils # (A) 0.1 k/uL (0-0.2); Basophils % (A) 1 %; Eosinophils # (A) 0.4 k/uL (0-0.7); Eosinophils % (A) 5 %; HCT 34.5 % (39.0-53.0); Lymphocytes # (A) 1.5 k/uL (1.0-4.8); Lymphocytes % (A) 17 %; MCH 33.4 pg (25.0-35.0); MCHC 35.2 g/dL (31.0-37.0); Mean Platelet Volume 11.2; Monocytes # (A) 0.7 k/uL (0-1.0); Monocytes % (A) 8 %; Neutrophils # (A) 5.9 k/uL (1.3-7.7); Neutrophils % (A) 68 %; Platelet Count 127 k/uL (150-450); RBC 3.64 m/uL (4.30-5.90); RDW 12.8 % (11.5-15.5); WBC 8.7 k/uL (3.8-10.6)
[2019-09-05 09:12] LABS: HGB 12.1 gm/dL (13.0-17.5)
[2019-09-05 09:45] LABS: ALT 29 U/L (4-49); AST 55 U/L (17-59); African American GFR (CKD) >90 (>60 ml/min/1.73 sqM); Albumin 3.7 g/dL (3.5-5.0); Alkaline Phosphatase 75 U/L (38-126); Anion Gap 8 mmol/L; Blood Urea Nitrogen 16 mg/dL (9-20); Calcium 8.9 mg/dL (8.4-10.2); Carbon Dioxide 24 mmol/L (22-30); Chloride 107 mmol/L (98-107); Glucose 95 mg/dL (74-99); Non-African American GFR(CKD) >90 (>60 ml/min/1.73 sqM); Sodium 139 mmol/L (137-145); Total Bilirubin 1.3 mg/dL (0.2-1.3); Total Protein 6.5 g/dL (6.3-8.2)
[2019-09-05 09:50] LABS: Potassium 4.7 mmol/L (3.5-5.1)
--- NOTE | 2019-09-05 11:30 | P.PN ---
Subjective Progress Note Date: 09/05/19 Principal diagnosis: Lumbar fracture Patient still having discomfort in the back. Says at about the same as it has been since admission. Ankle x-ray over the weekend was normal. He is hoping to go to rehab. Objective - Vital Signs Vital signs: Vital Signs Temp 97.9 F 09/05/19 04:59 Pulse 97 09/05/19 04:59 Resp 16 09/05/19 08:00 BP 120/74 09/05/19 04:59 Pulse Ox 96 09/05/19 04:59 Intake & Output 09/04/19 09/05/19 09/05/19 18:59 06:59 18:59 Intake Total 700 Balance 700 Intake: Oral 700 Other: Voiding Method Urinal Urinal Urinal # Voids 3 2 4 - Exam Abdomen: Soft, nontender, nondistended - Labs CBC & Chem 7: 09/05/19 07:59 09/05/19 07:59 Labs: Abnormal Lab Results - Last 24 Hours (Table) 09/05/19 Range/Units 07:59 RBC 3.64 L (4.30-5.90) m/uL Hgb 12.1 L (13.0-17.5) gm/dL Hct 34.5 L (39.0-53.0) % Plt Count 127 L (150-450) k/uL Assessment and Plan (1) Lumbar compression fracture Narrative/Plan: Stable for resumption of anticoagulation. Continue diet as tolerated. We'll transfer care to medicine and will sign off if they accept. Definitive man agement per orthospine. Current Visit: Yes Status: Acute Priority: Medium Code(s): S32.000A - WEDGE COMPRESSION FRACTURE OF UNSP LUMBAR VERTEBRA, INIT SNOMED Code(s): 544355653
--- NOTE | 2019-09-05 11:42 | P.PN ---
Subjective Progress Note Date: 09/05/19 This is a 67-year-old male patient who presented to the ER after falling down approximately 20 steps at home. Patient reports he woke up hemoglobin 90 having to go to the bathroom and reports that he turned the wrong way and fell down the steps. patient reports that his mid to lower back was hurting right after the fall and he was brought into ER for further evaluation. Patient does have an underlying history of Alzheimer's, atrial fibrillation maintained on eliquis. Additional medical history includes GERD, hyperlipidemia, hypertension, prostate disorder, macular degeneration and cholecystectomy. Patient states he lives at home with his and 2 children. Chest x-ray completed showing no active cardiopulmonary disease no pneumothorax no change. Normal heart. Pelvic x-ray completed showing normal pelvis. CT of cervical spine completed showing spondylitic changes in the lower cervical spine. No fracture. Sinusitis. CT of head completed showing left parietal scalp hematoma mild sinusitis no acute intracranial abnormality. CT of chest abdomen and pelvis completed showing no s ign of acute Traumatic injury of the chest abdomen and pelvis. There is subcutaneous density of the left iliac bone and left buttock consistent with subcutaneous hematoma and bruising. At this time Dr. Dumont has been consulted for back pain. Eliquis on hold due to hematoma. White blood cell count elevated at 15.9 will order urinary analysis to rule out infection. Patient denies any chest pain or shortness of breath. Patient denies any episodes of loss of consciousness prior to fall. Patient denies any recent illness. Patient denies nausea vomiting or diarrhea. Patient denies any urinary burning or frequency. On 09/03/2019 patient was seen and examined on the medical floor he is alert and oriented 3 in no apparent distress he is still complaining of mid back pain otherwise no complaints there is no fever or chills no headache or dizziness no chest pain no shortness of breath no cough no nausea or vomiting no abdominal pain no diarrhea no burning was urination no frequency or urgency and no hematuria On 09/04/2019 patient was seen and examined on the medical floor he is alert and oriented 3 in no apparent distress he is complaining of left sided mid to lower back pain otherwise he denies any complaints there is no fever or chills no headache or dizziness no chest pain no shortness of breath no cough no nausea or vomiting no abdominal pain no diarrhea and no urinary symptoms On 09/05/2019 patient alert and oriented 3. Surgical and orthopedic services have signed off. Okay to resume anticoagulation per surgical services. Social work consulted for ECF discharge planning Dr. Brennan has been consulted for possible inpatient rehab. At this time patient denies any chest pain or shortness of breath. Patient denies nausea vomiting or diarrhea. Patient denies any urinary burning or frequency Objective - Vital Signs Vital signs: Vital Signs Temp 97.9 F 09/05/19 04:59 Pulse 97 09/05/19 04:59 Resp 16 09/05/19 08:00 BP 120/74 09/05/19 04:59 Pulse Ox 96 09/05/19 04:59 Intake & Output 09/04/19 09/05/19 09/05/19 18:59 06:59 18:59 Intake Total 700 Balance 700 Intake: Oral 700 Other: Voiding Method Urinal Urinal Urinal # Voids 3 2 4 - Exam Head normocephalic, there is a scalp hematoma on the left parietal area Neck supple no JVD no goiter Lungs clear to auscultation bilaterally no wheezing or crackles Heart regular rate and rhythm S1-S2, no rub or gallop Abdomen is soft nontender nondistended positive bowel sounds no hepatosplenomegaly Extremities no edema no cyanosis or clubbing Neuro alert and orientated to 3. Patient does have history of dementia, otherwise no acute gross focal neurological deficit - Labs CBC & Chem 7: 09/05/19 07:59 09/05/19 07:59 Labs: Abnormal Lab Results - Last 24 Hours (Table) 09/05/19 Range/Units 07:59 RBC 3.64 L (4.30-5.90) m/uL Hgb 12.1 L (13.0-17.5) gm/dL Hct 34.5 L (39.0-53.0) % Plt Count 127 L (150-450) k/uL Assessment and Plan Assessment: 1. Status post fall with mild L2 compression fracture left lower lumbar sacral paraspinal contusion and hematoma and left ankle sprain. Chest x-ray completed showing no active cardiopulmonary disease no pneumothorax no change. Normal heart. Pelvic x-ray completed showing normal pelvis. CT of cervical spine completed showing spondylitic changes in the lower cervical spine. No fracture. Sinusitis. CT of head completed showing left parietal scalp hematoma mild sinusitis no acute intracranial abnormality. CT of chest abdomen and pelvis completed showing no sign of acute Traumatic injury of the chest abdomen and pelvis. There is subcutaneous density of the left iliac bone and left buttock consistent with subcutaneous hematoma and bruising. Patient evaluated by orthopedic services TSLO brace ordered. Per orthopedic services continue local supportive measures including heat ice as needed for comfort and LSO brace when out of bed. Patient has been cleared for discharge from orthopedic standpoint and follow-up as outpatient with Dr. Dumont regarding his lumbar spine 2. History of atrial fibrillation maintained on eliquis. Eliquis currently on hold due to fall with hematoma. Okay to resume eliquis per surgical services 3. Leukocytosis likely secondary to sinusitis seen on head CT. Elevated white blood blood cell count 15.9. Chest x-ray negative. UA negative. patient will be started on Rocephin. 4. History of Alzheimer's 5. History of GERD 6. History of hyperlipidemia. Maintained on statin 7. History of macular degeneration 8. History of cholecystectomy 9. History of essential hypertension DVT prophylaxis Eliquis. GI prophylaxis Pepcid PT OT and high school social science teacher consult for discharge planning Dr. Brennan has been consulted for possible inpatient rehab Thank you for this consultation we'll continue to follow patient closely throughout stay
--- NOTE | 2019-09-05 13:24 | P.CONS ---
History of Present Illness - Chief Complaint Walking difficulty - History of Present Illness I had the opportunity to see patient for inpatient rehab consultation with regard to walking difficulty. He was admitted to [facility] August 15 with history of fall down 20 steps stairs. Note negative x-rays chest, pelvis, left ankle. Lumbar spine consistent with acute L2 compression fracture. C-spine CT with spondylitic change. Head CT well left parietal scalp hematoma. CT chest abdomen and pelvis negative. Seen in consultation by Dr. arzate, orthopedics. PT reports supervision for transfers and gait 234 feet roller walker. OT prescribed. Previous functional history as elicited patient: 69-year-old left-handed white male who is lives in one form with and 2 teenagers. Patient retired. does the cooking laundry. Patient can with driving, standing shower and gait without device. Dr. day jar his regular doctor. Denies tobacco or alcohol. Family history mother with throat cancer. Review of Systems Review of systems: ENT: Denies sneezes or discharge. Eyes: Denies discharge or photophobia. Cardiac: Denies chest pain or palpitation. Pulmonary: Denies cough or shortness of breath. Gastrointestinal: Denies nausea, emesis, constipation, diarrhea. Genitourinary: Denies discharge or frequency. Musculoskeletal: Low back pain, especially with movement, denies radiation. Neurologic: Denies motor or sensory change. Endocrine: Denies shakes or sweats. Oncology: Denies cancers. Dermatologic: Denies rash, itching, pruritus. ALLERGY/immunology: Denies sneezes, rashes. Past Medical History Past Medical History: Dementia, GERD/Reflux, Hyperlipidemia, Hypertension, Memory Impairment, Prostate Disorder Additional Past Medical History / Comment(s): macular degeneration RT EYE MACULAR HOLE-HAD SX), "PAST ULCER", ALZHIEMERS,PAST KIDNEY STONES History of Any Multi-Drug Resistant Organisms: MRSA Year Discovered:: 11/26/17 MDRO Source:: TOE Past Surgical History: Cholecystectomy, Hernia Repair Additional Past Surgical History / Comment(s): LT CATARACTS, RT EYE SX FOR MACULAR HOLE, MARLON FOOT SX 4-5 TH TOES BONE SX, LT KNEE SX ON CARTILAGE, LT SHOULDER BONE SOUR, LT ARM ORIF-PLATE, UNBILICAL HERNIA Past Anesthesia/Blood Transfusion Reactions: No Reported Reaction Past Psychological History: No Psychological Hx Reported Additional Psychological History / Comment(s): PT LIVES WITH AND 2 KIDS. PETS: 2 BIRDS, 2 CATS. PT IS INDEPENDANT. NO HOME CARE SERVICES. NO MEDICAL EQUIPMENT. NO PAST SERVICE. IS AN SENIOR DIRECTOR CREATIVE SERVICES. Smoking Status: Never smoker Past Alcohol Use History: None Reported Past Drug Use History: None Reported - Past Family History Mother Family Medical History: Cancer Additional Family Medical History / Comment(s): LEUKEMIA Father Additional Family Medical History / Comment(s): CEREBRAL ANEURYSM Medications and Allergies Home Medications Medication Instructions Recorded Confirmed Type Atenolol [Tenormin] 25 mg PO BID 05/29/17 09/02/19 History Simvastatin [Zocor] 40 mg PO HS 05/29/17 09/02/19 History Vits A,C,E/Lutein/Minerals 1 tab PO DAILY 05/29/17 09/02/19 History [Ocuvite with Lutein Tablet] Apixaban [Eliquis] 5 mg PO BID tab 06/02/17 09/02/19 Rx Furosemide [Lasix] 20 mg PO Q48H 09/02/19 09/02/19 History Isosorbide Mononitrate ER [Imdur] 30 mg PO DAILY 09/02/19 09/02/19 History Allergies Allergy/AdvReac Type Severity Reaction Status Date / Time No Known Allergies Allergy Verified 09/02/19 08:24 Physical Exam Vitals: Vital Signs Temp Pulse Pulse Resp BP Pulse Ox 09/05/19 08:00 16 09/05/19 04:59 97.9 F 97 16 120/74 96 09/04/19 21:45 98.3 F 94 16 110/70 94 L 09/04/19 13:58 97.0 F L 93 20 93/61 97 Intake and Output 09/04/19 09/05/19 09/05/19 22:59 06:59 14:59 Other: Voiding Method Urinal Urinal Urinal # Voids 1 2 4 Skin: Good color, texture, turgor. General: Medium build and comfortable appearance. Head: Normocephalic, atraumatic. Eyes: Symmetric. Pupils equal round. Ears: Symmetric. Hearing within normal limits. Mouth: Clear. Neck: Supple. Carotid without bruit. Cardiac: Regular rate and rhythm. Lungs: Clear anteriorly and posteriorly. Abdomen: Soft active nontender. Extremities: Normal tone. Neurological: Mental status: Alert, cooperative, pleasant. Cranial nerves: Symmetric facial tone and trapezius. Motor: Normal active movement all 4 limbs. Sensation: Intact throughout. DTRs: Symmetric and equal throughout. Mobility: Reports assistance from nurse for transfer from bed to chair and Bathr oom. He over believes this is related to IV. Results CBC & Chem 7: 09/05/19 07:59 09/05/19 07:59 Labs: Abnormal Lab Results - Last 24 Hours (Table) 09/05/19 Range/Units 07:59 RBC 3.64 L (4.30-5.90) m/uL Hgb 12.1 L (13.0-17.5) gm/dL Hct 34.5 L (39.0-53.0) % Plt Count 127 L (150-450) k/uL Assessment and Plan (1) Lumbar compression fracture Current Visit: Yes Status: Acute Priority: Medium Code(s): S32.000A - WEDGE COMPRESSION FRACTURE OF UNSP LUMBAR VERTEBRA, INIT SNOMED Code(s): 001058821 Plan: Impression: 1. Walking difficulty. 2. Acute L2 compression. 3. Hypertension. 4. Dementia and memory problems. Comes and plan: At this time PT ongoing OT prescribed. PT reports patient supervision for mobility with gait with roller walker. At this time do not anticipate need of inpatient rehab.
[2019-09-05] MEDS: HYDROcodone/APAP 7.5-325MG 1 EACH TAB PO PRN ×2 (13:35→21:17)
[2019-09-05] MEDS: SODIUM CHLORIDE 0.9% 1,000 ML IV SCH (16:32)
[2019-09-05] MEDS: TAMSULOSIN 0.4 MG CAP.ER.24H PO SCH (21:13)
[2019-09-05] MEDS: FINASTERIDE 5 MG TAB PO SCH (21:13)
[2019-09-05] MEDS: ATORVASTATIN 20 MG TAB PO SCH (21:13)
[2019-09-06 07:44] VITALS: BP 140/91; PULSE 82; RESP 14; TEMP 97.9
[2019-09-06 08:42] LABS: Basophils % (A) 0 %; Eosinophils # (A) 0.4 k/uL (0-0.7); Eosinophils % (A) 4 %; HCT 34.2 % (39.0-53.0); HGB 12.3 gm/dL (13.0-17.5); Lymphocytes # (A) 1.9 k/uL (1.0-4.8); Lymphocytes % (A) 20 %; MCH 33.8 pg (25.0-35.0); Mean Platelet Volume 10.6; Monocytes # (A) 0.7 k/uL (0-1.0); Monocytes % (A) 8 %; Neutrophils # (A) 6.4 k/uL (1.3-7.7); Neutrophils % (A) 67 %; Platelet Count 162 k/uL (150-450); RBC 3.64 m/uL (4.30-5.90); RDW 12.7 % (11.5-15.5); WBC 9.6 k/uL (3.8-10.6)
[2019-09-06 08:48] LABS: ALT 31 U/L (4-49); AST 45 U/L (17-59); African American GFR (CKD) >90 (>60 ml/min/1.73 sqM); Albumin 3.8 g/dL (3.5-5.0); Alkaline Phosphatase 74 U/L (38-126); Anion Gap 7 mmol/L; Blood Urea Nitrogen 13 mg/dL (9-20); Carbon Dioxide 27 mmol/L (22-30); Chloride 106 mmol/L (98-107); Glucose 100 mg/dL (74-99); Non-African American GFR(CKD) >90 (>60 ml/min/1.73 sqM); Potassium 4.6 mmol/L (3.5-5.1); Sodium 140 mmol/L (137-145); Total Bilirubin 1.2 mg/dL (0.2-1.3); Total Protein 6.7 g/dL (6.3-8.2)
[2019-09-06] MEDS: ISOSORBIDE MONONITRATE ER 30 MG TAB.ER.24H PO SCH (08:56)
[2019-09-06] MEDS: APIXABAN 5 MG TAB PO SCH (08:56)
[2019-09-06] MEDS: DOCUSATE 100 MG CAP PO SCH (08:56)
[2019-09-06] MEDS: ATENOLOL 25 MG TAB PO SCH (08:56)
[2019-09-06] MEDS: FAMOTIDINE 20 MG TAB PO SCH (08:56)
[2019-09-06] MEDS: SODIUM CHLORIDE 0.9% 1,000 ML IV SCH (09:02)
--- NOTE | 2019-09-06 09:02 | P.PN ---
Subjective Progress Note Date: 09/06/19 This is a 67-year-old male patient who presented to the ER after falling down approximately 20 steps at home. Patient reports he woke up hemoglobin 90 having to go to the bathroom and reports that he turned the wrong way and fell down the steps. patient reports that his mid to lower back was hurting right after the fall and he was brought into ER for further evaluation. Patient does have an underlying history of Alzheimer's, atrial fibrillation maintained on eliquis. Additional medical history includes GERD, hyperlipidemia, hypertension, prostate disorder, macular degeneration and cholecystectomy. Patient states he lives at home with his and 2 children. Chest x-ray completed showing no active cardiopulmonary disease no pneumothorax no change. Normal heart. Pelvic x-ray completed showing normal pelvis. CT of cervical spine completed showing spondylitic changes in the lower cervical spine. No fracture. Sinusitis. CT of head completed showing left parietal scalp hematoma mild sinusitis no acute intracranial abnormality. CT of chest abdomen and pelvis completed showing no s ign of acute Traumatic injury of the chest abdomen and pelvis. There is subcutaneous density of the left iliac bone and left buttock consistent with subcutaneous hematoma and bruising. At this time Dr. Dumont has been consulted for back pain. Eliquis on hold due to hematoma. White blood cell count elevated at 15.9 will order urinary analysis to rule out infection. Patient denies any chest pain or shortness of breath. Patient denies any episodes of loss of consciousness prior to fall. Patient denies any recent illness. Patient denies nausea vomiting or diarrhea. Patient denies any urinary burning or frequency. On 09/03/2019 patient was seen and examined on the medical floor he is alert and oriented 3 in no apparent distress he is still complaining of mid back pain otherwise no complaints there is no fever or chills no headache or dizziness no chest pain no shortness of breath no cough no nausea or vomiting no abdominal pain no diarrhea no burning was urination no frequency or urgency and no hematuria On 09/04/2019 patient was seen and examined on the medical floor he is alert and oriented 3 in no apparent distress he is complaining of left sided mid to lower back pain otherwise he denies any complaints there is no fever or chills no headache or dizziness no chest pain no shortness of breath no cough no nausea or vomiting no abdominal pain no diarrhea and no urinary symptoms On 09/05/2019 patient alert and oriented 3. Surgical and orthopedic services have signed off. Okay to resume anticoagulation per surgical services. Social work consulted for ECF discharge planning Dr. Brennan has been consulted for possible inpatient rehab. At this time patient denies any chest pain or shortness of breath. Patient denies nausea vomiting or diarrhea. Patient denies any urinary burning or frequency On 09/06/2019 patient is alert and oriented 3. Patient currently sitting in at bedside. Dr. Mckoy has been consulted for inpatient rehab. Social work has been consulted for discharge planning. Patient denies chest pain or shortness of breath. Patient denies nausea vomiting or diarrhea. Patient denies any urinary burning or frequency Objective - Vital Signs Vital signs: Vital Signs Temp 97.9 F 09/06/19 07:00 Pulse 82 09/06/19 07:00 Resp 14 09/06/19 07:00 BP 140/91 09/06/19 07:00 Pulse Ox 96 09/06/19 07:00 Intake & Output 09/05/19 09/06/19 09/06/19 18:59 06:59 18:59 Intake Total 875 Output Total 200 1000 Balance -200 -125 Intake: Oral 875 Output: Urine 200 1000 Other: Voiding Method Urinal Urinal # Voids 1 2 # Bowel Movements 0 - Exam Head normocephalic, there is a scalp hematoma on the left parietal area Neck supple no JVD no goiter Lungs clear to auscultation bilaterally no wheezing or crackles Heart regular rate and rhythm S1-S2, no rub or gallop Abdomen is soft nontender nondistended positive bowel sounds no hepatosplenomegaly Extremities no edema no cyanosis or clubbing Neuro alert and orientated to 3. Patient does have history of dementia, otherwi se no acute gross focal neurological deficit - Labs CBC & Chem 7: 09/06/19 07:51 09/05/19 07:59 Labs: Abnormal Lab Results - Last 24 Hours (Table) 09/05/19 09/06/19 Range/Units 07:59 07:51 RBC 3.64 L 3.64 L (4.30-5.90) m/uL Hgb 12.1 L 12.3 L (13.0-17.5) gm/dL Hct 34.5 L 34.2 L (39.0-53.0) % Plt Count 127 L (150-450) k/uL Assessment and Plan Assessment: 1. Status post fall with mild L2 compression fracture left lower lumbar sacral paraspinal contusion and hematoma and left ankle sprain. Chest x-ray completed showing no active cardiopulmonary disease no pneumothorax no change. Normal heart. Pelvic x-ray completed showing normal pelvis. CT of cervical spine completed showing spondylitic changes in the lower cervical spine. No fracture. Sinusitis. CT of head completed showing left parietal scalp hematoma mild sinusitis no acute intracranial abnormality. CT of chest abdomen and pelvis completed showing no sign of acute Traumatic injury of the chest abdomen and pelvis. There is subcutaneous density of the left iliac bone and left buttock consistent with subcutaneous hematoma and bruising. Patient evaluated by orthopedic services TSLO brace ordered. Per orthopedic services continue local supportive measures including heat ice as needed for comfort and LSO brace when out of bed. Patient has been cleared for discharge from orthopedic standpoint and follow-up as outpatient with Dr. Dumont regarding his lumbar spine 2. History of atrial fibrillation maintained on eliquis. Eliquis currently on hold due to fall with hematoma. Okay to resume eliquis per surgical services 3. Leukocytosis likely secondary to sinusitis seen on head CT. Elevated white blood blood cell count 15.9. Chest x-ray negative. UA negative. patient will be started on Rocephin. Resolved 4. History of Alzheimer's 5. History of GERD 6. History of hyperlipidemia. Maintained on statin 7. History of macular degeneration 8. History of cholecystectomy 9. History of essential hypertension DVT prophylaxis Eliquis. GI prophylaxis Pepcid PT OT and social and political studies professor consult for discharge planning Dr. Brennan has been consulted for possible inpatient rehab Thank you for this consultation we'll continue to follow patient closely throughout stay
[2019-09-06] MEDS: HYDROcodone/APAP 7.5-325MG 1 EACH TAB PO PRN (11:40)
--- NOTE | 2019-09-06 12:10 | P.DS ---
Providers Date of admission: 09/04/19 12:36 Expected date of discharge: 09/06/19 Attending physician: Teddy Olson Consults: 09/02/19 11:48 Consult Physician Urgent Consulting Provider: Chantel Dumont Consult Reason/Comments: back pain, s/p fall down 20 stairs Do you want consulting provider notified?: Yes 09/02/19 11:52 Consult Physician Routine Consulting Provider: Cecelia Evangelista Consult Reason/Comments: medical management Do you want consulting provider notified?: Yes 09/05/19 11:12 Consult Physician Routine Consulting Provider: Deonte Brennan Consult Reason/Comments: Possible inpatient rehab increased weakness and falls Do you want consulting provider notified?: Yes Primary care physician: Cecelia Evangelista [facility] Course: Discharge diagnosis 1. Status post fall with mild L2 compression fracture left lower lumbar sacral paraspinal contusion and hematoma and left ankle sprain. Chest x-ray completed showing no active cardiopulmonary disease no pneumothorax no change. Normal heart. Pelvic x-ray completed showing normal pelvis. CT of cervical spine completed showing spondylitic changes in the lower cervical spine. No fracture. Sinusitis. CT of head completed showing left parietal scalp hematoma mild sinusitis no acute intracranial abnormality. CT of chest abdomen and pelvis completed showing no sign of acute Traumatic injury of the chest abdomen and pelvis. There is subcutaneous density of the left iliac bone and left buttock consistent with subcutaneous hematoma and bruising. Patient evaluated by orthopedic services TSLO brace ordered. Per orthopedic services continue local supportive measures including heat ice as needed for comfort and LSO brace when out of bed. Patient has been cleared for discharge from orthopedic standpoint and follow-up as outpatient with Dr. Dumont regarding his lumbar spine 2. History of atrial fibrillation maintained on eliquis. Eliquis currently on hold due to fall with hematoma. Okay to resume eliquis per surgical services. hgb remained stable while on eliquis 3. Leukocytosis likely secondary to sinusitis seen on head CT. Elevated white blood blood cell count 15.9. Chest x-ray negative. UA negative. patient will be started on Rocephin. Resolved. Discharged on Ceftin for 5 days for sinusitis 4. History of Alzheimer's 5. History of GERD 6. History of hyperlipidemia. Maintained on statin 7. History of macular degeneration 8. History of cholecystectomy 9. History of essential hypertension Hospital course This is a 67-year-old male patient who presented to the ER after falling down approximately 20 steps at home. Patient reports he woke up hemoglobin 90 having to go to the bathroom and reports that he turned the wrong way and fell down the steps. patient reports that his mid to lower back was hurting right after the fall and he was brought into ER for further evaluation. Patient does have an underlying history of Alzheimer's, atrial fibrillation maintained on eliquis. Additional medical history includes GERD, hyperlipidemia, hypertension, prostate disorder, macular degeneration and cholecystectomy. Patient states he lives at home with his and 2 children. Chest x-ray completed showing no active cardiopulmonary disease no pneumothorax no change. Normal heart. Pelvic x-ray completed showing normal pelvis. CT of cervical spine completed showing spondylitic changes in the lower cervical spine. No fracture. Sinusitis. CT of head completed showing left parietal scalp hematoma mild sinusitis no acute intracranial abnormality. CT of chest abdomen and pelvis completed showing no sign of acute Traumatic injury of the chest abdomen and pelvis. There is subcutaneous density of the left iliac bone and left buttock consistent with subcutaneous hematoma and bruising. At this time Dr. Dumont has been consulted for back pain. Eliquis on hold due to hematoma. White blood cell count elevated at 15.9 will order urinary analysis to rule out infection. Patient denies any chest pain or shortness of breath. Patient denies any episodes of loss of consciousness prior to fall. Patient denies any recent illness. Patient denies nausea vomiting or diarrhea. Patient denies any urinary burning or frequency. On 09/03/2019 patient was seen and examined on the medical floor he is alert and oriented 3 in no apparent distress he is still complaining of mid back pain otherwise no complaints there is no fever or chills no headache or dizziness no chest pain no shortness of breath no cough no nausea or vomiting no abdominal pain no diarrhea no burning was urination no frequency or urgency and no hematuria On 09/04/2019 patient was seen and examined on the medical floor he is alert and oriented 3 in no apparent distress he is complaining of left sided mid to lower back pain otherwise he denies any complaints there is no fever or chills no headache or dizziness no chest pain no shortness of breath no cough no nausea or vomiting no abdominal pain no diarrhea and no urinary symptoms On 09/05/2019 patient alert and oriented 3. Surgical and orthopedic services have signed off. Okay to resume anticoagulation per surgical services. Social work consulted for ECF discharge planning Dr. Brennan has been consulted for possible inpatient rehab. At this time patient denies any chest pain or shortness of breath. Patient denies nausea vomiting or diarrhea. Patient denies any urinary burning or frequency On 09/06/2019 patient is alert and oriented 3. Patient currently sitting in at bedside. Dr. Mckoy has been consulted for inpatient rehab. Social work has been consulted for discharge planning. Patient denies chest pain or shortness of breath. Patient denies nausea vomiting or diarrhea. Patient denies any urinary burning or frequency For social work physical therapy recommending home. Patient and family would like to be discharged home with home health care at this time. [place] prescription given for pain control. LSO brace at bedside. Patient educated this is to be on outside bed. Denies chest pain or shortness of breath. Patient denies nausea vomiting or diarrhea. Patient denies any urinary burning or frequency. Patient has been discharged on Ceftin for 5 days for sinusitis. I performed an examination of the patient and discussed their management with the Nurse Practitioner. I have reviewed the Nurse Practitioner's notes and agree with the documented findings and plan of care Patient Condition at Discharge: Stable Plan - Discharge Summary Discharge Rx Participant: No New Discharge Prescriptions: New Docusate [Colace] 100 mg PO BID 30 Days #60 cap Continue Atenolol [Tenormin] 25 mg PO BID Simvastatin [Zocor] 40 mg PO HS Vits A,C,E/Lutein/Minerals [Ocuvite with Lutein Tablet] 1 tab PO DAILY Apixaban [Eliquis] 5 mg PO BID tab Furosemide [Lasix] 20 mg PO Q48H Isosorbide Mononitrate ER [Imdur] 30 mg PO DAILY Discharge Medication List Atenolol [Tenormin] 25 mg PO BID 05/29/17 [History] Simvastatin [Zocor] 40 mg PO HS 05/29/17 [History] Vits A,C,E/Lutein/Minerals [Ocuvite with Lutein Tablet] 1 tab PO DAILY 05/29/17 [History] Apixaban [Eliquis] 5 mg PO BID tab 06/02/17 [Rx] Furosemide [Lasix] 20 mg PO Q48H 09/02/19 [History] Isosorbide Mononitrate ER [Imdur] 30 mg PO DAILY 09/02/19 [History] Docusate [Colace] 100 mg PO BID 30 Days #60 cap 09/06/19 [Rx] Follow up Appointment(s)/Referral(s): Binu Law, PAC [PHYSICIAN RADIATION CONTROL TECHNICIAN] - As Needed Oral Phan, MILY [PHYSICIAN RADIATION CONTROL TECHNICIAN] - 2 Weeks (Patient may follow-up with Oral Phan PA-C or Dr. Frank Dumont at [facility] in 2-3 weeks following discharge. ) [facility], [NON-STAFF] - As Needed Cecelia Evangelista MD [Primary Care Provider] - 1-2 days Patient Instructions/Handouts: Thoracolumbar Fracture (DC) Activity/Diet/Wound Care/Special Instructions: 1. Patient may wear LSO brace for comfort and support while sitting upright at greater than 45, while working with therapy, and while ambulating; patient does not have to wear the brace while lying in bed or bathing 2. Patient should avoid excessive bending, twisting, and lifting; no lifting greater than 10 pounds Cardiac diet. Discharge Disposition: HOME WITH HOME HEALTH SERVICES
--- NOTE | 2019-09-06 12:19 | P.PN ---
Subjective Progress Note Date: 09/06/19 CHIEF COMPLAINT: Trauma HISTORY OF PRESENT ILLNESS: Patient seen and examined this morning with Dr. Ng. Patient is sitting up in the chair. He is tolerating diet. Denies nausea or vomiting. Reports his pain is tolerable at this time. Vital signs are stable. PHYSICAL EXAM: VITAL SIGNS: Reviewed. GENERAL: Well-developed in no acute distress. HEENT: No sclera icterus. Extraocular movements grossly intact. Moist buccal mucosa. Head is atraumatic, normocephalic. ABDOMEN: Soft. Nondistended. Nontender. NEUROLOGIC: Alert and oriented. Cranial nerves II through XII grossly intact. ASSESSMENT: 1. Trauma, status post fall down 20 stairs 2. Intractable mid to lower back pain, mild L2 compression fracture 3. History of A. fib, on long-term anticoagulation with Eliquis PLAN: Continue diet as tolerated Pain control Activity as tolerated Discharge per medicine Nurse practitioner note has been reviewed by physician. Signing provider agrees with the documented findings, assessment, and plan of care. Objective - Vital Signs Vital signs: Vital Signs Temp 97.9 F 09/06/19 07:00 Pulse 82 09/06/19 07:00 Resp 14 09/06/19 07:00 BP 140/91 09/06/19 07:00 Pulse Ox 96 09/06/19 07:00 Intake & Output 09/05/19 09/06/19 09/06/19 18:59 06:59 18:59 Intake Total 875 Output Total 200 1000 Balance -200 -125 Intake: Oral 875 Output: Urine 200 1000 Other: Voiding Method Urinal Urinal Urinal # Voids 1 2 # Bowel Movements 0 - Labs CBC & Chem 7: 09/06/19 07:51 09/06/19 07:51 Labs: Abnormal Lab Results - Last 24 Hours (Table) 09/06/19 09/06/19 Range/Units 07:51 07:51 RBC 3.64 L (4.30-5.90) m/uL Hgb 12.3 L (13.0-17.5) gm/dL Hct 34.2 L (39.0-53.0) % Glucose 100 H (74-99) mg/dL
--- NOTE | 2019-09-06 13:42 | CDI ---
Documentation Clarification Form Date: 09/06/2019 01:32:47 PM From: Kati Figueroa RN, CCDS Admit Date: 09/04/2019 12:36:00 PM Patient Name: Johnnie Martinez Visit Number: [id number] Discharge Date: ATTENTION: The Clinical Documentation Specialists (CDI) and [facility] Coding Staff appreciate your assistance in clarifying documentation. Please respond to the clarification below the line at the bottom and electronically sign. The CDI & [facility] Coding staff will review the response and follow-up if needed. Please note: Queries are made part of the Legal Health Record. If you have any questions, please contact the author of this message via ITS. Dr. Cecelia Evangelista Atrial Fibrillation is documented in the emergency evaluation, history and physical and subsequent documentation and additional clarification is needed. History/Risk Factors: Atrial fibrillation, Alzheimer's, Hypertension, Clinical Indicators: 69-year-old male present after falling down approximately 20 steps. He has a history of atrial fibrillation maintained on Eliquis. EKG/telemetry: (09/02/19) Atrial Fibrillation with rapid ventricuilar response vent. rate 108 bpm Treatment: Monitor CBC, PT/INR Hold Eliquis (resume per surgical services) In your professional opinion, can you please clarify the type of Atrial Fibrillation, if known? Chronic/Permanent Paroxysmal Persistent Other, please specify Unable to determine (Last Revision: December 2017) paroxysmal MTDD
--- NOTE | 2019-09-10 04:22 | CDI ---
Documentation Clarification Form Date: 09/10/19 From: Suraj Mckeon Phone: If you have a question about this query, please contact Aubrie Trivedi, Belt Press Operator at [phone] between 8am and 5pm. Admit Date: 09/04/19 Discharge Date: 09/06/19 Patient Name: Johnnie Martinez Visit Number: [id number] ATTENTION: The Clinical Documentation Specialists (CDI) and [facility] Coding Staff appreciate your assistance in clarifying documentation. Please respond to the clarification below the line at the bottom and electronically sign. The CDI & [facility] Coding staff will review the response and follow-up if needed. Please note: Queries are made part of the Legal Health Record. If you have any questions, please contact the author of this message via ITS. Dear Cecelia Mojica., Patient has been diagnosed with a fracture in the mild L2 compression fracture. History/Risk Factors: fall, dementia, alzheimer's disease, sprain of ankle, falling down a flight of stairs at home. X-Ray Results: Acute compression fracture of L2 vertebra. Treatment: LSO brace, Conservative management. -Intractable mid to lower back pain, mild L2 compression fracture, -Results Xrays of the Lumbar spine show a mild wedge compression fracture of the L2 vertebral body. In your professional opinion, please specify the following: Etiology of fracture: Traumatic Pathological (specify cause): Neoplastic disease Osteoporosis Other (please specify): Unable to determine. Traumatic MTDD
== END 2019-09-06 15:28 | disposition home health service (06) | DRG 552 ==
LOC: EC 01:51 → 4SSUR 04:34 → 6NMEDSUR 13:54 → OBSVTOIN 09-04 12:36
PROVIDERS: ADMIT Internal Medicine; ATTEND Internal Medicine
DX: S32.020A Wedge compression fracture of second lumbar vertebra, initial encounter for closed fracture (principal); E78.5 Hyperlipidemia, unspecified; F02.80 Dementia in other diseases classified elsewhere, unspecified severity, without behavioral disturbance, psychotic disturbance, mood disturbance, and anxiety; G30.9 Alzheimer's disease, unspecified; I10 Essential (primary) hypertension; S00.03XA Contusion of scalp, initial encounter; S93.402A Sprain of unspecified ligament of left ankle, initial encounter; I48.0 Paroxysmal atrial fibrillation; W10.9XXA Fall (on) (from) unspecified stairs and steps, initial encounter; Z79.01 Long term (current) use of anticoagulants; Z79.899 Other long term (current) drug therapy; Z80.6 Family history of leukemia; Z80.8 Family history of malignant neoplasm of other organs or systems; Z87.442 Personal history of urinary calculi; Z90.49 Acquired absence of other specified parts of digestive tract
CPT/HCPCS: 36415; 70450; 71045; 71260; 72100; 72125; 72170; 74177; 80053; 80306; 80320; 81003; 82150; 82550; 82553; 83605; 83690; 84484; 85025; 85610; 85730; 86850; 86900; 86901; 96361; 96374; 96376; 99291

== ENCOUNTER → 2020-03-09 | Outpatient (CLI) | payer MEDICARE ==
--- NOTE | 2020-03-11 18:57 | US ---
EXAMINATION TYPE: US kidneys/renal and bladder DATE OF EXAM: 03/09/2020 COMPARISON: Correlation CT head 09/02/2020 CLINICAL HISTORY: 70-year-old male R30.9 Pain with urination, R32 Hematuria. Frequent urination TECHNIQUE: Multiple sonographic images of the kidneys and bladder are obtained. FINDINGS: EXAM MEASUREMENTS: Right Kidney: 11.8 x 4.6 x 5.9 cm Left Kidney: 10.7 x 4.0 x 5.3 cm Right Kidney: No hydronephrosis. Left Kidney: lateral lower pole cystic appearing = 0.6 x 0.8 x 0.6 cm. Parapelvic cyst measuring 1.8 x 1.8 x 0.9 cm . No hydronephrosis. Bladder: distended, anechoic. Prominent prostate seen estimated at at least 6 cm craniocaudal with s ome soft tissue impressing on the posterior bladder base. Right jet seen IMPRESSION: 1. No hydronephrosis. 2. A couple benign cysts in the left kidney. 3. Prostatomegaly.
== END | disposition home or self-care (01) ==
LOC: RADUSWWP 16:01
PROVIDERS: ATTEND Internal Medicine
DX: N28.1 Cyst of kidney, acquired (principal); N40.1 Benign prostatic hyperplasia with lower urinary tract symptoms
CPT/HCPCS: 76770

== ENCOUNTER 2020-11-15 07:11 | Day surgery (SDC) | payer MEDICARE ==
[2020-11-01 12:06] VITALS: BMI 29.9
[~2020-11-15 07:11] MED LIST changes: -ALPRAZolam 0.25 MG TAB PO PRN; -ASPIRIN 325 MG TAB PO STA; -ATORVASTATIN 80 MG TAB PO STA; -HEPARIN SODIUM 1,000 UN/ML (10ML VL) IVPB ONE; -HEPARIN SODIUM 1,000 UN/ML (10ML VL) ONE; -IOPAMIDOL-370 125ML BTL INJ ONE; +LACTATED RINGERS 1,000 ML IV SCH; +LIDOCAINE 1% (10MG/ML) FOR IV START INTRADERMA PRN; -LIDOCAINE 1% INJ 10MG/ML (20 ML MDV) SQ ONE; -MIDAZOLAM 2 MG/2 ML VIAL IVP ONE; -MIDAZOLAM 2 MG/2 ML VIAL ONE; -RX INFO: IV CONTRAST WAS GIVEN 1 EACH MISC MISCELLANE PRN; -SODIUM CHLORIDE 0.9% 1,000 ML IV SCH; -SODIUM CHLORIDE 0.9% 1,000 ML in EMPTY BAG 1 BAG IV ONE; -VERAPAMIL 2.5 MG/ML 2 ML AMP ONE; -VERAPAMIL SYRINGE (5 MG/10 ML) INTRAARTER ONE; -fentaNYL (PF) 50 MCG/ML 2 ML AMP IVP ONE; -fentaNYL (PF) 50 MCG/ML 2 ML AMP ONE
[2020-11-15 08:09] VITALS: TEMP 97.4
[2020-11-15] MEDS ORDERED: PROPOFOL 10 MG/ML 20 ML VIAL IV ONE (09:19)
[2020-11-15] MEDS ORDERED: LIDOCAINE 1% INJ 10MG/ML (20 ML MDV) ONE (09:19)
--- NOTE | 2020-11-15 09:57 | P.PCN ---
Date of Procedure: 11/15/20 Description of Procedure: BRIEF HISTORY: Patient is a 70-year-old male presenting for screening for malignant neoplasm of the colon. Last colonoscopy 10 years and normal per his recollection. No change in bowel habits although he does report some chronic constipation. No family history of colon cancer. PROCEDURE PERFORMED: Colonoscopy with polypectomy . PREOPERATIVE DIAGNOSIS: Screening for malignant neoplasm of the colon, last colonoscopy 10 years ago. ESTIMATED BLOOD LOSS: Minimal. IV sedation per Anesthesia. PROCEDURE: After informed consent was obtained, the patient, was brought into the endoscopy unit. IV sedation was administered by Anesthesia under continuous monitoring. Digital rectal examination was normal. Initially the Olympus CF-190 flexible video colonoscope was then inserted in the rectum, gradually advanced into the cecum without any difficulty. Careful examination was performed as the scope was gradually being withdrawn. Ileocecal valve and the appendiceal orifice were visualized and appeared normal. Prep was excellent. Mucosa of the cecum, ascending colon, transverse colon, descending colon, sigmoid colon, and rectum appeared normal. 2 diminutive polyps removed with cold forcep polypectomy from the splenic flexure and rectum measuring 1-2 mm in size. A few scattered diverticula noted throughout the colon. Retroflexion was performed in the rectum and no lesions were seen. The patient tolerated the procedure well. IMPRESSION: 2 diminutive polyps removed with cold forcep polypectomy from the splenic flexure and rectum. Mild pandiverticulosis. RECOMMENDATIONS: Findings of this examination were discussed with the patient and his family. Okay to resume diet. Okay to resume medications including anticoagulation therapy. Recommend repeat colonoscopy in 7 years pending pathology from polypectomy.
[2020-11-15 10:17] VITALS: BP 125/87; PULSE 84; RESP 16
== END 2020-11-15 11:49 | disposition home health service (06) ==
LOC: ORWHC2ENDO 07:11
PROVIDERS: ATTEND Internal Medicine
DX: Z12.11 Encounter for screening for malignant neoplasm of colon (principal); K63.5 Polyp of colon; K62.1 Rectal polyp; K57.30 Diverticulosis of large intestine without perforation or abscess without bleeding; K21.9 Gastro-esophageal reflux disease without esophagitis; I10 Essential (primary) hypertension; I48.91 Unspecified atrial fibrillation; F03.90 Unspecified dementia, unspecified severity, without behavioral disturbance, psychotic disturbance, mood disturbance, and anxiety; Z90.49 Acquired absence of other specified parts of digestive tract; Z98.890 Other specified postprocedural states; Z79.01 Long term (current) use of anticoagulants; Z79.899 Other long term (current) drug therapy
CPT/HCPCS: 88305; 45380; J2001; J2704

== ENCOUNTER → 2022-02-13 | Outpatient (CLI) | payer MEDICARE ==
[2022-02-13 22:28] LABS: African American GFR (CKD) 110.8 (60.0-200.0); Anion Gap 9.9 mmol/L (10.00-18.00); Basophils # (A) 0.04 X 10*3/uL (0.00-0.10); Basophils % (A) 0.5 %; Blood Urea Nitrogen 11.2 mg/dL (9.0-27.0); Calcium 9.1 mg/dL (8.7-10.3); Carbon Dioxide 28.1 mmol/L (20.0-27.5); Eosinophils # (A) 0.25 X 10*3/uL (0.04-0.35); Eosinophils % (A) 3.2 %; HCT 41.7 % (39.6-50.0); HGB 13.6 g/dL (13.0-17.0); Immature Grans, Automated 0.4 %; Lymphocytes # (A) 2.07 X 10*3/uL (0.90-5.00); Lymphocytes % (A) 26.5 %; MCH 31.4 pg (27.0-32.0); MCHC 32.6 g/dL (32.0-37.0); MCV 96.3 fL (80.0-97.0); Mean Platelet Volume 12.5 fL (9.5-12.2); Monocytes # (A) 0.68 X 10*3/uL (0.20-1.00); Monocytes % (A) 8.7 %; NRBC Per 100 WBC 0 /100 WBCS (0.0-0.0); Neutrophils # (A) 4.75 X 10*3/uL (1.80-7.70); Neutrophils % (A) 60.7 %; Non-African American GFR(CKD) 95.6 (60.0-200.0); Platelet Count 168 X 10*3/uL (140-440); Potassium 4.1 mmol/L (3.5-5.5); RBC 4.33 X 10*6/uL (4.40-5.60); RDW 12.2 % (11.5-14.5); WBC 7.82 X 10*3/uL (4.50-10.00)
== END | disposition home or self-care (01) ==
LOC: LABPAT 14:17
PROVIDERS: ATTEND Urology
DX: Z01.812 Encounter for preprocedural laboratory examination (principal); N40.1 Benign prostatic hyperplasia with lower urinary tract symptoms
CPT/HCPCS: 80048; 85025

== ENCOUNTER 2022-02-20 08:13 | Day surgery (SDC) | payer MEDICARE ==
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
[~2022-02-20 08:13] MED LIST changes: +DEXAMETHASONE SOD PHOSPHATE 4 MG/ML 1 ML VIAL IV ONE; +HYDROmorphone 0.5 MG/0.5 ML SYRINGE IVP PRN; -LACTATED RINGERS 1,000 ML IV SCH; -LIDOCAINE 1% (10MG/ML) FOR IV START INTRADERMA PRN; +ONDANSETRON 4 MG/2 ML VIAL IVP ONE
[2022-02-20] MEDS ORDERED: LIDOCAINE 1% (10MG/ML) FOR IV START INTRADERMA ONE (09:42)
[2022-02-20] MEDS: LACTATED RINGERS 1,000 ML IV SCH (09:42)
[2022-02-20] MEDS ORDERED: MIDAZOLAM 2 MG/2 ML VIAL ONE (10:59)
[2022-02-20] MEDS ORDERED: ePHEDrine 50 MG/ML 1 ML VIAL ONE (10:59)
[2022-02-20] MEDS ORDERED: FUROSEMIDE 10 MG/ML 2 ML VIAL ONE (10:59)
[2022-02-20] MEDS ORDERED: LIDOCAINE 2% INJ 20 MG/ML (2 ML VIAL) ONE (10:59)
[2022-02-20] MEDS ORDERED: PROPOFOL 10 MG/ML 20 ML VIAL IV ONE (10:59)
[2022-02-20] MEDS ORDERED: fentaNYL (PF) 50 MCG/ML 2 ML AMP ONE (10:59)
[2022-02-20] MEDS ORDERED: SUCCINYLCHOLINE CHLORIDE VIAL 200 MG/10 ML VIAL IV ONE (10:59)
[2022-02-20] MEDS ORDERED: LACTATED RINGERS 1,000 ML IV ONE (12:38)
[2022-02-20] MEDS ORDERED: ACETAMINOPHEN TAB 325 MG TAB PO PRN (14:01)
[2022-02-20] MEDS ORDERED: BELLADONNA-OPIUM 16.2-60 MG 1 EACH SUPP RECTAL PRN (14:01)
[2022-02-20] MEDS ORDERED: MAG HYDROX/AL HYDROX/SIMETH 30 ML CUP PO PRN (14:01)
[2022-02-20] MEDS: DEXTROSE 5%-0.45% NACL 1,000 ML IV SCH (18:25)
[2022-02-20] MEDS: DOCUSATE 100 MG CAP PO SCH (20:06)
[2022-02-20] MEDS: SODIUM CHLORIDE 0.9% IRRIGATIO 3,000 ML IRRIGATION SCH (21:59)
[2022-02-21] MEDS: SODIUM CHLORIDE 0.9% IRRIGATIO 3,000 ML IRRIGATION SCH (03:42)
--- NOTE | 2022-02-21 06:51 | P.OP ---
Date of Procedure: 02/20/22 Preoperative Diagnosis: BPH with obstruction Postoperative Diagnosis: Same Procedure(s) Performed: Cystoscopy, bipolar transurethral resection of prostate (TURP) Anesthesia: WILDA Surgeon: Yovani Ortega Estimated Blood Loss (ml): 150 IV fluids (ml): 1,300 Condition: stable Disposition: PACU Indications for Procedure: The patient is a 72-year-old white male with a history of BPH, for which he is currently taking tamsulosin and finasteride. However, he continues to void every 30 minutes throughout the day, and he reports nocturia 3. His urinary stream is fairly weak, but bladder emptying is complete. Cystoscopy shows evidence of trilobar BPH. Alternative treatment options of been reviewed. He has elected to undergo a TURP and comes for this reason. Operative Findings: Trilobar BPH, complete occlusion. Description of Procedure: The patient was taken in the operating room and placed in the dorsolithotomy position. The external genitalia was prepped and draped sterilely. The 25- [place] [employer] resectoscope sheath was introduced into the bladder. The bladder was inspected. Both ureteral orifices were of normal anatomic location and configuration, and clear urine effluxed from both. No tumors or foreign bodies were seen. Examination of the prostate revealed complete obstruction with a trilobar configuration. Using the bipolar cutting loop, the median lobe was resected in its entirety. Next, the lateral lobes were resected down to the surgical capsule. The remaining tissue on the floor of the prostate was then resected, proximal to the verumontanum. Next, the anterior tissue was resected. The residual apical tissue was then carefully resected, with care taken to avoid injury to the external urinary sphincter. The resection was carried down to the surgical capsule in all 4 quadrants. The prostatic fossa was then carefully examined, and any areas of bleeding were controlled with electrocautery. Adequate hemostasis was attained. The resectoscope was withdrawn into the bulbous urethra. The external urinary sphincter remained intact. The prostatic fossa was open. The [employer] evacuator was used to remove all prostate chips from the bladder. These were saved and sent for pathologic examination. The resectoscope was removed, and a 20 [place]ian, 3-Way Whittaker catheter was placed. The return was essentially clear. Continuous bladder irrigation was started using 0.9 normal saline. The patient tolerated the procedure well was taken to the recovery room in stable condition.
[2022-02-21] MEDS: DEXTROSE 5%-0.45% NACL 1,000 ML IV SCH (06:58)
[2022-02-21] MEDS: LACTATED RINGERS 1,000 ML IV SCH (06:58)
[2022-02-21] MEDS: DOCUSATE 100 MG CAP PO SCH (07:36)
--- NOTE | 2022-02-21 08:04 | P.DS ---
Providers Attending physician: Yovani Ortega Primary care physician: [facility] Course: The patient underwent a TURP by . 's today. He required irrigation overnight. The urine is clear this morning on extremely slow drip. The irrigation will be discontinued as well to IV. The patient we discharged home. He'll go home with the Whittaker. A follow-up with Dr. Perez on Thursday. Postoperative instructions been given. Tylenol or Motrin for pain. Condition is good. Patient Condition at Discharge: Good Plan - Discharge Summary Discharge Rx Participant: No New Discharge Prescriptions: No Action atenoloL [Tenormin] 25 mg PO BID Simvastatin [Zocor] 40 mg PO 1700 Vits A,C,E/Lutein/Minerals [Ocuvite with Lutein Tablet] 1 tab PO DAILY Apixaban [Eliquis] 5 mg PO BID tab Ketoconazole 2% Cream [Nizoral 2%] 1 applic TOPICAL BID Dutasteride [Avodart] 0.5 mg PO BID Tamsulosin HCl [Flomax] 0.4 mg PO 1700 Ergocalciferol [Vitamin D2 (1250 Mcg = 31842 Iu)] 1,250 mcg PO WEEKLY Discharge Medication List Simvastatin [Zocor] 40 mg PO 1700 05/29/17 [History] Vits A,C,E/Lutein/Minerals [Ocuvite with Lutein Tablet] 1 tab PO DAILY 05/29/17 [History] atenoloL [Tenormin] 25 mg PO BID 05/29/17 [History] Apixaban [Eliquis] 5 mg PO BID tab 06/02/17 [Rx] Dutasteride [Avodart] 0.5 mg PO BID 11/01/20 [History] Ketoconazole 2% Cream [Nizoral 2%] 1 applic TOPICAL BID 11/01/20 [History] Tamsulosin HCl [Flomax] 0.4 mg PO 1700 11/01/20 [History] Ergocalciferol [Vitamin D2 (1250 Mcg = 77373 Iu)] 1,250 mcg PO WEEKLY 02/20/22 [History] Follow up Appointment(s)/Referral(s): Yovani Ortega MD [STAFF PHYSICIAN] - 02/24/22 (Home with Whittaker. Instruct in usage.)
[2022-02-21 09:58] VITALS: BP 126/80; PULSE 86; RESP 16; TEMP 97.4
== END 2022-02-21 11:55 | disposition home or self-care (01) ==
LOC: OR 08:13 → 4SSUR 14:04 → OR 02-21 11:55
PROVIDERS: ATTEND Urology
DX: N40.1 Benign prostatic hyperplasia with lower urinary tract symptoms (principal); N13.8 Other obstructive and reflux uropathy; I48.91 Unspecified atrial fibrillation; F03.90 Unspecified dementia, unspecified severity, without behavioral disturbance, psychotic disturbance, mood disturbance, and anxiety; K21.9 Gastro-esophageal reflux disease without esophagitis; E78.5 Hyperlipidemia, unspecified; I10 Essential (primary) hypertension; R41.3 Other amnesia; N42.9 Disorder of prostate, unspecified; H35.30 Unspecified macular degeneration; Z87.11 Personal history of peptic ulcer disease; Z87.442 Personal history of urinary calculi; Z85.828 Personal history of other malignant neoplasm of skin; Z86.14 Personal history of Methicillin resistant Staphylococcus aureus infection; Z90.49 Acquired absence of other specified parts of digestive tract; Z98.42 Cataract extraction status, left eye; Z98.890 Other specified postprocedural states; Z80.6 Family history of leukemia; Z82.49 Family history of ischemic heart disease and other diseases of the circulatory system; Z79.01 Long term (current) use of anticoagulants; Z79.899 Other long term (current) drug therapy
CPT/HCPCS: 88305; 52601; J1100; J0690; J2405

== ENCOUNTER 2022-02-22 19:57 | Emergency (ER) | payer MEDICARE ==
[2022-02-22 20:39] VITALS: PULSE 100; TEMP 98.8
[2022-02-22 21:13] LABS: Appearance,Urine Cloudy (Clear); Bacteria,Urine Rare /hpf; Bilirubin,Urine Negative (Negative); Blood,Urine Large (Negative); Calcium Oxalate Crystals,Urine Occasional /hpf; Color,Urine Yellow; Glucose,Urine (UA) Negative (Negative); Ketones,Urine Negative (Negative); Leukocyte Esterase,Urine Moderate (Negative); Mucus,Urine Rare /hpf; Nitrite,Urine Negative (Negative); PH, Urine 6.5 (5.0-8.0); Protein,Urine 1+ (Negative); RBC,Urine >182 /hpf (0-5); Specific Gravity,Urine 1.016 (1.001-1.035); WBC,Urine 17 /hpf (0-5)
[2022-02-22] MEDS ORDERED: PHENAZOPYRIDINE 200 MG TAB PO STA (21:13)
[2022-02-22 21:39] LABS: Basophils # (A) 0.1 k/uL (0-0.2); Basophils % (A) 1 %; Eosinophils # (A) 0.4 k/uL (0-0.7); Eosinophils % (A) 2 %; HCT 41.1 % (39.0-53.0); HGB 13.7 gm/dL (13.0-17.5); Lymphocytes # (A) 2.5 k/uL (1.0-4.8); Lymphocytes % (A) 16 %; MCH 33.2 pg (25.0-35.0); MCHC 33.4 g/dL (31.0-37.0); MCV 99.4 fL (80.0-100.0); Monocytes # (A) 1.2 k/uL (0-1.0); Monocytes % (A) 8 %; Neutrophils # (A) 11.2 k/uL (1.3-7.7); Neutrophils % (A) 71 %; Platelet Count 168 k/uL (150-450); RBC 4.13 m/uL (4.30-5.90); RDW 13.2 % (11.5-15.5); WBC 15.7 k/uL (3.8-10.6)
[2022-02-22 21:53] LABS: ALT 42 U/L (4-49); AST 42 U/L (17-59); African American GFR (CKD) >90 (>60 ml/min/1.73 sqM); Albumin 3.8 g/dL (3.5-5.0); Alkaline Phosphatase 90 U/L (38-126); Anion Gap 3 mmol/L; Blood Urea Nitrogen 15 mg/dL (9-20); Calcium 8.5 mg/dL (8.4-10.2); Carbon Dioxide 29 mmol/L (22-30); Chloride 104 mmol/L (98-107); Glucose 101 mg/dL (74-99); Non-African American GFR(CKD) >90 (>60 ml/min/1.73 sqM); Potassium 4.1 mmol/L (3.5-5.1); Sodium 136 mmol/L (137-145); Total Bilirubin 0.6 mg/dL (0.2-1.3); Total Protein 6.6 g/dL (6.3-8.2)
[2022-02-22] MEDS ORDERED: OXYBUTYNIN CHLORIDE 5 MG TAB PO STA (22:23)
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
[2022-02-22] MEDS ORDERED: ACETAMINOPHEN TAB 500 MG TAB PO STA (22:33)
[2022-02-22 22:54] VITALS: BP 116/89; RESP 18
== END 2022-02-22 22:55 | disposition home or self-care (01) ==
LOC: EC 19:57
DX: N99.89 Other postprocedural complications and disorders of genitourinary system (principal); K21.9 Gastro-esophageal reflux disease without esophagitis; E78.5 Hyperlipidemia, unspecified; I10 Essential (primary) hypertension; Z79.83 Long term (current) use of bisphosphonates
CPT/HCPCS: 36415; 80053; 81001; 85025; 87086; 99283

== ENCOUNTER → 2022-03-21 | Outpatient (CLI) | payer MEDICARE ==
[2022-03-21 16:12] LABS: INR 1.1 (<1.2); Prothrombin Time 11.4 sec (9.0-12.0)
[2022-03-24 13:42] LABS: Lyme IgG/IgM 0.25 Index
== END | disposition home or self-care (01) ==
LOC: LABWHC1 14:59
PROVIDERS: ATTEND Psychiatry & Neurology Neurology
DX: G31.84 Mild cognitive impairment of uncertain or unknown etiology (principal); I63.9 Cerebral infarction, unspecified
CPT/HCPCS: 36415; 82607; 82747; 84439; 84443; 85610; 85652; 85730; 86038; 86618; 86780

== ENCOUNTER → 2022-04-04 | Outpatient (CLI) | payer MEDICARE ==
--- NOTE | 2022-04-05 15:17 | MR ---
EXAMINATION TYPE: MR brain wo con DATE OF EXAM: 04/04/2022 5:25 PM COMPARISON: CT brain 09/02/2019. CLINICAL INDICATION:Male, 72 years old with history of I67.9 CEREBROVASCULAR DISEASE; memory loss. TECHNIQUE: Multi planar, multi sequence imaging was performed through the brain including: T1, T2, In version recovery, Diffusion weighted imaging, and gradient echo imaging. No gadolinium was given. FINDINGS: The soriano-white junctions, ventricular system, and cisterns appear unremarkable. Few scattered foci o f high T2 signal intensity are seen within the periventricular white matter. No significant volume lo ss visualized. Midline structures show no abnormality. Diffusion-weighted imaging shows no evidence o f restricted diffusion. The bone marrow signal is within normal limits. The paranasal sinuses mild paranasal sinus disease mo st pronounced in the right frontal lobe but also affecting the maxillary sinuses. Bilateral aphakia. IMPRESSION: 1. No evidence of intracranial mass or acute/subacute infarct. 2. Nonspecific white matter changes, likely secondary to small vessel ischemic disease.
== END | disposition home or self-care (01) ==
LOC: RADMRIMAIN 16:43
PROVIDERS: ATTEND Psychiatry & Neurology Neurology
DX: I67.9 Cerebrovascular disease, unspecified (principal)
CPT/HCPCS: 70551

== ENCOUNTER 2022-04-10 06:17 | Emergency (ER) | payer MEDICARE ==
[2022-04-10 06:28] VITALS: BP 149/95; TEMP 98.5
[2022-04-10] MEDS ORDERED: PROPARACAINE 0.5% OPHTH DROPS 15 ML BTL BOTH EYES STA (06:29)
[2022-04-10] MEDS ORDERED: TOBRAMYCIN 0.3% OPHTH DROPS 5 ML BTL BOTH EYES STA (06:29)
[2022-04-10] MEDS ORDERED: FLUORESCEIN STRIPS 1 MG STRIP RIGHT EYE ONE (06:29)
[2022-04-10] MEDS ORDERED: ARTIFICIAL TEARS-HYPROMELLOSE DROPS 15 ML BTL BOTH EYES STA (07:19)
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
[2022-04-10 07:54] VITALS: PULSE 70; RESP 16
== END 2022-04-10 07:55 | disposition home or self-care (01) ==
LOC: EC 06:17
DX: T26.62XA Corrosion of cornea and conjunctival sac, left eye, initial encounter (principal); T26.61XA Corrosion of cornea and conjunctival sac, right eye, initial encounter; I48.91 Unspecified atrial fibrillation; K21.9 Gastro-esophageal reflux disease without esophagitis; E78.5 Hyperlipidemia, unspecified; I10 Essential (primary) hypertension; Z79.899 Other long term (current) drug therapy
CPT/HCPCS: 99283

== ENCOUNTER → 2022-07-01 | Outpatient (CLI) | payer MEDICARE ==
[2022-07-01 14:22] LABS: HCT 43.6 % (39.6-50.0); HGB 13.9 g/dL (13.0-17.0); MCH 31.7 pg (27.0-32.0); MCHC 31.9 g/dL (32.0-37.0); MCV 99.3 fL (80.0-97.0); Mean Platelet Volume 12.4 fL (9.5-12.2); NRBC Per 100 WBC 0 /100 WBCS (0.0-0.0); Platelet Count 166 X 10*3/uL (140-440); RBC 4.39 X 10*6/uL (4.40-5.60); WBC 7.96 X 10*3/uL (4.50-10.00)
[2022-07-01 15:55] LABS: Anion Gap 8.8 mmol/L (10.00-18.00); Blood Urea Nitrogen 11.1 mg/dL (9.0-27.0); Carbon Dioxide 28.4 mmol/L (20.0-27.5); Potassium 4.2 mmol/L (3.5-5.5)
== END | disposition home or self-care (01) ==
LOC: LABPAT 07:51
PROVIDERS: ATTEND Internal Medicine Interventional Cardiology
DX: Z01.812 Encounter for preprocedural laboratory examination (principal); R06.02 Shortness of breath
CPT/HCPCS: 80051; 84520; 85027

== ENCOUNTER → 2022-07-08 | Day surgery (SDC) | payer MEDICARE ==
[2022-07-04 16:20] VITALS: BMI 31.4
[~2022-07-08] MED LIST changes: +ALPRAZolam 0.25 MG TAB PO PRN; +ALPRAZolam 0.5 MG TAB PO PRN; +ASPIRIN 325 MG TAB PO STA; +ATORVASTATIN 80 MG TAB PO STA; +BENZOCAINE SPRAY 1 CAN TOPICAL ONE; -DEXAMETHASONE SOD PHOSPHATE 4 MG/ML 1 ML VIAL IV ONE; +HEPARIN SODIUM 1,000 UN/ML (10ML VL) IVP ONE; +HEPARIN SODIUM 1,000 UN/ML (10ML VL) ONE; +HEPARIN SODIUM,PORCINE 10,000 UNIT in SODIUM CHLORIDE 0.9% 1,000 ML IRRIGATION PRN; +HEPARIN SODIUM,PORCINE 2,500 UNIT in SODIUM CHLORIDE 0.9% 250 ML IRRIGATION PRN; -HYDROmorphone 0.5 MG/0.5 ML SYRINGE IVP PRN; +IOPAMIDOL-370 125ML BTL INJ ONE; +MIDAZOLAM 2 MG/2 ML VIAL IVP ONE; +NITROGLYCERIN SL TABS 0.4 MG TAB SUBLINGUAL PRN; -ONDANSETRON 4 MG/2 ML VIAL IVP ONE; +RX INFO: IV CONTRAST WAS GIVEN 1 EACH MISC MISCELLANE PRN; +SODIUM CHLORIDE 0.9% 1,000 ML IV SCH; +SODIUM CHLORIDE 0.9% 1,000 ML in EMPTY BAG 1 BAG IV SCH; +VERAPAMIL 2.5 MG/ML 2 ML AMP ONE; +fentaNYL (PF) 50 MCG/ML 2 ML AMP IVP ONE; +fentaNYL (PF) 50 MCG/ML 2 ML AMP ONE
[2022-07-08 07:46] VITALS: TEMP 97.9
[2022-07-08 07:57] LABS: African American GFR (CKD) >90 (>60 ml/min/1.73 sqM); Anion Gap 9 mmol/L; Blood Urea Nitrogen 12 mg/dL (9-20); Calcium 8.5 mg/dL (8.4-10.2); Carbon Dioxide 27 mmol/L (22-30); Chloride 103 mmol/L (98-107); Glucose 106 mg/dL (74-99); Non-African American GFR(CKD) >90 (>60 ml/min/1.73 sqM); Sodium 139 mmol/L (137-145)
[2022-07-08 08:03] LABS: Potassium 4.5 mmol/L (3.5-5.1)
--- NOTE | 2022-07-08 10:34 | P.PCN ---
Date of Procedure: 07/08/22 Operative Findings: TRANSESOPHAGEAL ECHOCARDIOGRAM SUMMER INTERN: TEJA FORRESTER MD, RPVI INDICATION: Valvular heart disease with aortic and mitral regurgitation SEDATION: Conscious sedation COMPLICATION: None LEVEL OF SEDATION Moderate with sedation length of 12 minutes PROCEDURE DESCRIPTION: After obtaining an informed consent, the patient was brought to transesophageal echocardiogram room. Pulse oximetry and heart monitors were attached to the patient. The patient throat was sprayed using lidocaine. The patient was turned into left lateral position. After that a bite guard was placed. After an appropriate conscious sedation was initiated, the transesophageal echocardiogram was advanced through a bite guard into the mid esophagus. A 2-D echocardiogram images, color Doppler images, continuous wave images, pulse-wave images, of various cardiac structure were performed. After that the transesophageal echocardiogram probe was advanced into the stomach and fixed to obtain transgastric view was. The probe was brought into the mid esophagus. Inter-atrial septum was interrogated using 2D images, color Doppler images, and then contrast study. After that transesophageal echocardiogram was withdrawn out and upon withdrawing the descending thoracic aorta all the way up to the arch was evaluated. FINDING: The left ventricular dimension appeared to be within normal limits. The left ventricular systolic function is impaired mildly with EF around 45%. The right ventricle appeared to be of normal size and function. The left atrium and right atrium are dilated. The left atrium appendage appeared to be free from any thrombus. The interatrial septum appeared to be intact. The aortic valve is trileaflet valve without stenosis was moderate insufficiency. The mitral valve appeared to be mildly thickened with evidence of moderate mitral regurgitation by PISA with a radius of 0.6 cm but there was evidence of reversal of flow in the right lower pulmonary vein was noted consistent with severe mitral regurgitation. There is mild tricuspid regurgitation. No evidence of pericardial effusion identified CONCLUSION: 1. Mildly impaired LV function was EF between 45-50% 2. Normal right ventricular dimension and systolic function 3. Moderate mitral regurgitation by quantitative measurements but there is evidence of reversal of flow in the right lower pulmonary vein 4. Moderate aortic insufficiency. The aortic valve is trileaflet valve 5. No evidence of pericardial effusion 6. Intact interatrial septum
--- NOTE | 2022-07-08 10:41 | P.PCN ---
Date of Procedure: 07/08/22 Operative Findings: CARDIAC CATHETERIZATION PERFORMING PHYSICIAN: Gael Narayan MD, RPVI PROCEDURE PERFORMED: 1. Selective right and left coronary angiogram 2. Left heart catheterization 3. Right heart catheterization INDICATION: This is a 72-year-old gentleman who was seen in the office recently was experiencing symptoms of shortness of breath lately consistent with NYHA class III. He is known to have moderate and aortic insufficiency. The last echo showed at least moderate aortic and moderate mitral insufficiency. He was brought today to undergo transesophageal echocardiogram as well as a right and left heart catheterization COMPLICATION: None APPROACH: Right radial artery LEVEL OF SEDATION: Moderate with a sedation length of 27 minutes PROCEDURE DESCRIPTION: After obtaining an informed consent, the patient was brought to cardiac slab miller operator. Local anesthesia was performed using lidocaine subcutaneously. The right radial artery was cannulated using Seldinger technique, the guidewire passed easily, following that we advanced a 5-Togolese sheath dilator assembly, the wire and dilator were removed and sheath was flushed. Subsequently I cannulated the right common femoral vein using micropuncture technique, the micropuncture wire passed easily then I placed a 6-Togolese sheath in the right common femoral vein. Following that, 2 mg of verapamil along with 5000 unit heparin were given. Selective right and left coronary angiogram using a 6-Togolese JR4 and JL 3.5 catheters. Following that we did left heart catheterization using 6-Togolese pigtail catheter. Right heart catheterization was performed using 6-Togolese [place] catheter. The procedure was completed there was no complication. SELECTIVE CORONARY ANGIOGRAM: The right coronary artery: Large caliber vessel and a dominant vessel. The RCA is angiographically normal. Distally bifurcates into PDA and PLV branches both appeared to be angiographically normal Left main: Is angiographically normal. Bifurcates into a LCx and LAD The left circumflex: Large caliber vessel nondominant vessel. Its angiographically normal. Gives rise into a large OM branch which trifurcates into 3 subbranches and the old appears to be angiographically normal. The left anterior descending artery: It is angiographically normal. Gives rise into a large diagonal branch which seems to be angiographically normal HEMODYNAMICS: #1 the mean pulmonary capillary wedge pressure was 24 mmHg with a V-wave of almost 40 mm #2 pulmonary artery pressures were as follow systolic of 44 end-diastolic of 27 and mean of 33 mmHg #3 does pulmonary gradient was 9 mmHg #4 RA pressure was as follow systolic of 14 and in diastole, of 11 mmHg #5 RA pressure was 14 mmHg #6 the LVEDP was 18 mmHg #7 the cardiac output was 4.89 L per minute with a cardiac index of 2.20 L/m/m #8 pulmonary vascular resistance was 1.84 with units CONCLUSION: 1. Normal coronary angiogram 2. Elevated right and left sided filling pressure 3. 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
[2022-07-08 18:37] VITALS: RESP 16
[2022-07-08 18:39] VITALS: BP 125/77; PULSE 58
== END ==
LOC: CATHCVL 07:07
PROVIDERS: ATTEND Internal Medicine Interventional Cardiology
DX: I27.20 Pulmonary hypertension, unspecified (principal); I42.9 Cardiomyopathy, unspecified; R06.02 Shortness of breath; I38 Endocarditis, valve unspecified; E78.5 Hyperlipidemia, unspecified; I10 Essential (primary) hypertension
CPT/HCPCS: 93312; 93320; 93325; 93460; 80048; C1769 ×3; C1894 ×2; C1751; C1760; J2250; J3010; J1644; Q9967

== ENCOUNTER → 2024-01-13 | Outpatient (CLI) | payer MEDICARE | END | disposition home or self-care (01) | LOC: LABWHC1 15:12 | PROVIDERS: ATTEND Psychiatry & Neurology Neurology | DX: R10.13 Epigastric pain (principal) | CPT/HCPCS: 36415 ==

== ENCOUNTER 2024-05-20 11:16 | Emergency (ER) | payer MEDICARE ==
[2024-05-20] MEDS: SODIUM CHLORIDE 0.9% 500 ML 500 ML IV STA (12:53)
[2024-05-20] MEDS: IBUPROFEN 400 MG TAB PO STA (12:54)
[2024-05-20 13:19] LABS: Basophils # (A) 0.1 k/uL (0-0.2); Basophils % (A) 1 %; Eosinophils # (A) 0.1 k/uL (0-0.7); Eosinophils % (A) 1 %; HCT 43.8 % (39.0-53.0); HGB 15.1 gm/dL (13.0-17.5); Lymphocytes % (A) 11 %; MCH 33.7 pg (25.0-35.0); MCHC 34.5 g/dL (31.0-37.0); MCV 97.7 fL (80.0-100.0); Mean Platelet Volume 10.1; Monocytes % (A) 12 %; Neutrophils # (A) 6.4 k/uL (1.3-7.7); Neutrophils % (A) 73 %; Platelet Count 167 k/uL (150-450); RBC 4.49 m/uL (4.30-5.90); RDW 12.4 % (11.5-15.5); WBC 8.8 k/uL (3.8-10.6)
[2024-05-20 13:30] LABS: Appearance,Urine Cloudy (Clear); Bilirubin,Urine Negative (Negative); Blood,Urine Trace (Negative); Color,Urine Light Yellow; Glucose,Urine (UA) Negative (Negative); Ketones,Urine Negative (Negative); Leukocyte Esterase,Urine Negative (Negative); Mucus,Urine Few /hpf; Nitrite,Urine Negative (Negative); Protein,Urine Negative (Negative); RBC,Urine 3 /hpf (0-5); Specific Gravity,Urine 1.018 (1.001-1.035); Squamous Epithelial Cell,Urine <1 /hpf (0-4); Urobilinogen,Urine <2.0 mg/dL (<2.0); WBC,Urine <1 /hpf (0-5)
[2024-05-20 13:32] LABS: ALT 28 U/L (4-49); AST 32 U/L (17-59); African American GFR (CKD) >90 (>60 ml/min/1.73 sqM); Albumin 4.4 g/dL (3.5-5.0); Alkaline Phosphatase 87 U/L (38-126); Anion Gap 9 mmol/L; Blood Urea Nitrogen 12 mg/dL (9-20); Calcium 9.3 mg/dL (8.4-10.2); Carbon Dioxide 24 mmol/L (22-30); Chloride 102 mmol/L (98-107); Glucose 102 mg/dL (74-99); Non-African American GFR(CKD) >90 (>60 ml/min/1.73 sqM); Sodium 135 mmol/L (137-145); Total Bilirubin 1.2 mg/dL (0.2-1.3); Total Protein 7.2 g/dL (6.3-8.2)
--- NOTE | 2024-05-20 13:52 | XR ---
EXAMINATION TYPE: XR chest 2V DATE OF EXAM: 05/20/2024 COMPARISON: NONE TECHNIQUE: PA and lateral views submitted. HISTORY: Cough and fever FINDINGS: The lungs are clear and there is no pneumothorax, pleural effusion, or focal pneumonia. Heart size normal and no overt failure. Osseous structures demonstrate hypertrophic and degenerative changes of the spine. Linear changes left lung base suggestive of scarring or atelectasis. Arthropathy of the sh oulders. IMPRESSION: 1. No acute process.
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
[2024-05-20] MEDS: DEXAMETHASONE SOD PHOSPHATE 10 MG/ML 1 ML VIAL IVP STA (14:54)
[2024-05-20 14:58] VITALS: TEMP 98.6
[2024-05-20 15:21] VITALS: BP 117/82; PULSE 91; RESP 18
== END 2024-05-20 15:21 | disposition home or self-care (01) ==
LOC: EC 11:16
DX: R41.82 Altered mental status, unspecified (principal); U07.1 COVID-19
CPT/HCPCS: 36415; 80053; 85025; 81001; 87636; 71046; 99283; 96374; J1100